=== PATIENT | male | born 1945 | race Caucasian/White ===

== ENCOUNTER → 2016-11-06 | Outpatient (CLI) | payer OTHER ==
[2016-02-24 10:43] VITALS: BP 138/83
== END ==
LOC: LAB 15:20
PROVIDERS: ATTEND Internal Medicine Gastroenterology
DX: K64.0 First degree hemorrhoids (principal)
CPT/HCPCS: 82270

== ENCOUNTER → 2017-09-19 | Outpatient (CLI) | payer OTHER ==
[2016-02-24 10:43] VITALS: BP 138/83
== END ==
LOC: LAB 10:10
PROVIDERS: ATTEND Internal Medicine Gastroenterology
DX: K64.0 First degree hemorrhoids (principal)
CPT/HCPCS: 82270

== ENCOUNTER 2018-02-25 12:19 | Observation (INO) ==
[2018-02-25 13:33] LABS: BASOPHILS % (AUTO) 0.3 % (0.2-1.0); EOSINOPHILS % (AUTO) 0.1 % (0.9-2.9); HEMATOCRIT 38.8 % (42.0-54.0); HEMOGLOBIN 13.2 g/dL (13.5-18.0); LYMPHOCYTES # (AUTO) 1.1 X10^3/uL (1.3-2.9); LYMPHOCYTES % (AUTO) 7.4 % (21.0-51.0); MEAN CORPUSCULAR HEMOGLOBIN 29.5 pg (27.0-34.0); MEAN CORPUSCULAR VOLUME 86.9 fL (80.0-100.0); MEAN PLATELET VOLUME 7.7 fL (7.4-11.0); MONOCYTES # (AUTO) 1.5 x10^3/uL (0.3-0.8); MONOCYTES % (AUTO) 9.7 % (0.0-13.0); NEUTROPHILS # (AUTO) 12.8 x10^3/uL (2.2-4.8); NEUTROPHILS % (AUTO) 82.5 % (42.0-75.0); PLATELET COUNT 236 X10^3/uL (150.0-450.0); RED BLOOD COUNT 4.47 X10^6/uL (4.7-6.0); RED CELL DISTRIBUTION WIDTH 13.2 % (11.6-16.5); WHITE BLOOD COUNT 15.5 X10^3/uL (3.6-10.0)
[2018-02-25] MEDS ORDERED: NS 250 ML IV 250 ML IV ONE (13:45)
--- NOTE | 2018-02-25 13:49 | RAD ---
HISTORY: Chest pain, abdominal pain Study: Flat and upright abdomen, PA chest Comparison: None Findings: The abdominal gas pattern is nonspecific and nonobstructive. No pneumoperitoneum is identified. No ab normal masses are identified. There is a 4 mm calcification overlying the lower pole of the left kidn ey likely representing a left renal calculus. The chest is clear. The patient is status post median s ternotomy. IMPRESSION: No acute intra-abdominal abnormality 4 mm left lower pole renal calculus Lungs clear Reported By:
[2018-02-25 13:54] LABS: ALBUMIN 3.1 g/dL (3.4-5.0); CALCIUM 10.4 mg/dL (8.5-10.1); CARBON DIOXIDE 22.8 mmol/L (21-32); COR CA(FOR HYPOALB) 11.1 mg/dL (8.5-10.1); CREATININE 1.5 mg/dL (0.70-1.30); MAGNESIUM 1.2 mg/dL (1.7-2.9); TOTAL PROTEIN 7.5 g/dL (6.4-8.2)
[2018-02-25 13:59] LABS: CKMB % 4.8 % (<4); CREATINE KINASE 21 Units/L (39-308); CREATINE KINASE MB < 1.0 ng/mL (0-4.0); TROPONIN I < 0.02 ng/mL (0-1.5)
[2018-02-25] MEDS ORDERED: NS 250 ML IV 250 ML IV PRN (14:00)
[2018-02-25] MEDS: LEVSIN/MAALOX/LIDOC VISC PO SCH ×3 (14:09→20:27)
[2018-02-25] MEDS: ASPIRIN PO SCH (14:09)
[2018-02-25] MEDS: PEPCID 20 MG IV PREMIX* 20 MG/50 ML BAG IV SCH ×2 (14:09→20:28)
[2018-02-25] MEDS: PROTONIX INJ 40 MG VIAL IVP SCH ×2 (14:10→20:27)
[2018-02-25 14:28] LABS: BILIRUBIN,URINE NEGATIVE (NEGATIVE); BLOOD/HEMOGLOBIN,URINE 1+ (NEGATIVE); GLUCOSE, URINE 4+ (NEGATIVE); KETONES,URINE NEGATIVE (NEGATIVE); LEUKOCYTE ESTERASE ,URINE NEGATIVE (NEGATIVE); NITRITES,URINE NEGATIVE (NEGATIVE); PROTEIN,URINE 2+ (NEGATIVE); UROBILINOGEN,URINE NORMAL (NORMAL)
[2018-02-25 14:38] LABS: APPEARANCE,URINE CLEAR (CLEAR); COLOR,URINE YELLOW (YELLOW)
[2018-02-25 14:39] LABS: BACTERIA,URINE NEGATIVE /HPF (NEGATIVE); MUCUS,URINE FEW /HPF (NEGATIVE); RBC,URINE 0-2 /HPF (NONE SEEN); SQUAMOUS EPITHELIAL CELL,UR FEW /HPF (NEGATIVE)
[2018-02-25 15:32] VITALS: BMI 28.3
[2018-02-25] MEDS: HumuLIN R SUBCUT PRN (16:50)
[2018-02-25] MEDS ORDERED: NS 100 ML IV + SPIKE MINIBAG* 100 ML IV ONE (18:29)
[2018-02-25] MEDS ORDERED: FORTAZ or TAZICEF VIAL INJ ONE (18:29)
[2018-02-25] MEDS: FORTAZ or TAZICEF VIAL INJ 1 G in NS 100 ML IV + SPIKE MINIBAG* 100 ML IV SCH ×2 (18:31→22:00)
[2018-02-25 18:38] LABS: CKMB % 4.4 % (<4); CREATINE KINASE 23 Units/L (39-308); CREATINE KINASE MB < 1.0 ng/mL (0-4.0); TROPONIN I < 0.02 ng/mL (0-1.5)
[2018-02-25] MEDS: TYLENOL 325 MG TAB PO PRN (20:20)
[2018-02-25] MEDS: SNACK - Diabetic Appropriate PO SCH (20:34)
[2018-02-25 21:59] LABS: CKMB % 4.6 % (<4); CREATINE KINASE 22 Units/L (39-308); CREATINE KINASE MB < 1.0 ng/mL (0-4.0); TROPONIN I < 0.02 ng/mL (0-1.5)
[2018-02-26] MEDS: FORTAZ or TAZICEF VIAL INJ 1 G in NS 100 ML IV + SPIKE MINIBAG* 100 ML IV SCH ×3 (06:09→22:27)
[2018-02-26 06:20] LABS: BASOPHILS % (AUTO) 0.2 % (0.2-1.0); EOSINOPHILS % (AUTO) 0.1 % (0.9-2.9); HEMATOCRIT 34.6 % (42.0-54.0); MEAN CORPUSCULAR HEMOGLOBIN 29.7 pg (27.0-34.0); MEAN CORPUSCULAR HGB CONC 34.7 g/dL (33.0-35.0); MEAN CORPUSCULAR VOLUME 85.6 fL (80.0-100.0); MEAN PLATELET VOLUME 7.9 fL (7.4-11.0); MONOCYTES # (AUTO) 1.2 x10^3/uL (0.3-0.8); MONOCYTES % (AUTO) 9.4 % (0.0-13.0); NEUTROPHILS # (AUTO) 10.7 x10^3/uL (2.2-4.8); NEUTROPHILS % (AUTO) 82.3 % (42.0-75.0); PLATELET COUNT 197 X10^3/uL (150.0-450.0); RED BLOOD COUNT 4.05 X10^6/uL (4.7-6.0); RED CELL DISTRIBUTION WIDTH 13.1 % (11.6-16.5)
[2018-02-26] MEDS: HumuLIN R SUBCUT PRN ×4 (06:27→21:32)
[2018-02-26 06:29] LABS: ALANINE AMINOTRANSFERASE 10 Units/L (12-78); ALBUMIN 2.6 g/dL (3.4-5.0); ALKALINE PHOSPHATASE 57 Units/L (46-116); ASPARTATE AMINO TRANSFERASE 11 Units/L (15-37); BLOOD UREA NITROGEN 19 mg/dL (7-18); CALCIUM 10.1 mg/dL (8.5-10.1); CARBON DIOXIDE 30.8 mmol/L (21-32); CHLORIDE 97 mmol/L (98-107); CHOL/HDL RATIO 6.5 (0.0-5.0); CHOLESTEROL 111 mg/dL (0-200); COR CA(FOR HYPOALB) 11.2 mg/dL (8.5-10.1); COR NA(FOR HYPERGLY) 138 mmol/L (136-145); CREATININE 1.28 mg/dL (0.70-1.30); HDL CHOLESTEROL 17 mg/dL (40-60); SODIUM 134 mmol/L (136-145); TOTAL PROTEIN 6.9 g/dL (6.4-8.2); TRIGLYCERIDES 190 mg/dL (0-150); eGFR NON BLACK RACES 59 (>60)
--- NOTE | 2018-02-26 06:47 | RAD ---
Chest portable Indication: Fever Comparison 02/25/2018 Findings: There are stable post sternotomy changes. The heart remains within normal limits. There is mild basilar atelectasis right greater than left. There is no venous congestion. A small right effusi on is present. The skeleton appears negative Impression: 1. Stable coarse lung markings. Minimal basilar atelectasis changes at Reported By:
--- NOTE | 2018-02-26 08:22 | DR.UPDATE ---
H&P Update History and Physical Update: WAS SEEN TODAY IN THE OFFICE. A H&P WAS COMPLETED PRIOR TO ADMISSION. PATIENT HAS BEEN SEEN AND EXAMINED WITH NO CHANGES NOTED TO H&P. Changes noted: NO Yes with the following:
[2018-02-26] MEDS: ASPIRIN PO SCH (09:20)
[2018-02-26] MEDS: PEPCID 20 MG IV PREMIX* 20 MG/50 ML BAG IV SCH ×2 (09:22→20:54)
[2018-02-26] MEDS: TYLENOL 325 MG TAB PO PRN (09:23)
[2018-02-26] MEDS: PROTONIX INJ 40 MG VIAL IVP SCH ×2 (09:29→20:52)
[2018-02-26] MEDS: LEVSIN/MAALOX/LIDOC VISC PO SCH ×4 (09:29→20:52)
[2018-02-26] MEDS ORDERED: GLIPIZIDE PO SCH (10:15)
[2018-02-26] MEDS ORDERED: FENOFIBRATE MICRONIZED PO SCH (10:15)
[2018-02-26] MEDS ORDERED: GLUCOPHAGE ONE ×2 (10:56→20:05)
[2018-02-26] MEDS: MILK OF MAGNESIA PO SCH (11:07)
[2018-02-26] MEDS: PLAVIX PO SCH (11:07)
[2018-02-26] MEDS: ZANTAC PO SCH ×2 (11:07→20:54)
[2018-02-26] MEDS: LIPITOR TAB 20 MG PO SCH (11:08)
[2018-02-26] MEDS: SYNTHROID 75 mcg TAB PO SCH (11:08)
[2018-02-26] MEDS: GLUCOPHAGE PO SCH ×2 (11:08→20:53)
[2018-02-26] MEDS: LOPRESSOR TAB 25 MG PO SCH ×2 (11:08→20:53)
[2018-02-26] MEDS: TAMIFLU PO SCH ×2 (11:09→20:54)
[2018-02-26] MEDS: COLACE CAP 100 MG PO PRN (12:17)
[2018-02-26] MEDS: SNACK - Diabetic Appropriate PO SCH (20:55)
[2018-02-26] MEDS ORDERED: XANAX PO SCH (21:00)
[2018-02-27 05:52] LABS: BASOPHILS % (AUTO) 0.4 % (0.2-1.0); EOSINOPHILS # (AUTO) 0.1 x10^3/uL (0.0-0.2); EOSINOPHILS % (AUTO) 0.8 % (0.9-2.9); HEMATOCRIT 30.8 % (42.0-54.0); HEMOGLOBIN 10.8 g/dL (13.5-18.0); LYMPHOCYTES # (AUTO) 1.2 X10^3/uL (1.3-2.9); LYMPHOCYTES % (AUTO) 12.5 % (21.0-51.0); MEAN CORPUSCULAR HGB CONC 35.2 g/dL (33.0-35.0); MEAN CORPUSCULAR VOLUME 85.3 fL (80.0-100.0); MEAN PLATELET VOLUME 7.9 fL (7.4-11.0); MONOCYTES % (AUTO) 10.8 % (0.0-13.0); NEUTROPHILS % (AUTO) 75.5 % (42.0-75.0); PLATELET COUNT 169 X10^3/uL (150.0-450.0); RED BLOOD COUNT 3.61 X10^6/uL (4.7-6.0); WHITE BLOOD COUNT 9.3 X10^3/uL (3.6-10.0)
[2018-02-27] MEDS: FORTAZ or TAZICEF VIAL INJ 1 G in NS 100 ML IV + SPIKE MINIBAG* 100 ML IV SCH ×2 (06:06→13:21)
[2018-02-27] MEDS: HumuLIN R SUBCUT PRN ×2 (06:07→12:00)
[2018-02-27 06:27] LABS: ALANINE AMINOTRANSFERASE 28 Units/L (12-78); ALBUMIN 2.2 g/dL (3.4-5.0); ALKALINE PHOSPHATASE 52 Units/L (46-116); ASPARTATE AMINO TRANSFERASE 18 Units/L (15-37); BLOOD UREA NITROGEN 19 mg/dL (7-18); CALCIUM 8.7 mg/dL (8.5-10.1); CARBON DIOXIDE 28.4 mmol/L (21-32); CHLORIDE 98 mmol/L (98-107); COR CA(FOR HYPOALB) 10.1 mg/dL (8.5-10.1); COR NA(FOR HYPERGLY) 135 mmol/L (136-145); CREATININE 1.07 mg/dL (0.70-1.30); SODIUM 134 mmol/L (136-145); TOTAL PROTEIN 6.1 g/dL (6.4-8.2); eGFR NON BLACK RACES > 60 (>60)
[2018-02-27] MEDS ORDERED: GLUCOTROL XL PO SCH (07:00)
[2018-02-27] MEDS ORDERED: K-RIDER 10 MEQ/NS 100 ML 10 MEQ/100 ML BAG IV PRN (07:01)
[2018-02-27] MEDS ORDERED: POTASSIUM CHLORIDE LIQ 20 MEQ UDC PO PRN (07:01)
[2018-02-27] MEDS ORDERED: POTASSIUM CHL 60 MEQ/NS 0.45% 500 ML IV PRN (07:01)
[2018-02-27] MEDS ORDERED: POTASSIUM CHL 40 MEQ/NS 0.45% 500 ML IV PRN (07:01)
[2018-02-27] MEDS ORDERED: K-LYTE EFFERVESCENT PO PRN (07:01)
[2018-02-27] MEDS ORDERED: TRICOR TAB 145 MG PO SCH (09:00)
[2018-02-27] MEDS ORDERED: GLUCOPHAGE ONE (09:17)
[2018-02-27] MEDS: TAMIFLU PO SCH ×2 (09:27→17:06)
[2018-02-27] MEDS: ZANTAC PO SCH (09:27)
[2018-02-27] MEDS: LOPRESSOR TAB 25 MG PO SCH (09:27)
[2018-02-27] MEDS: ASPIRIN PO SCH (09:28)
[2018-02-27] MEDS: LIPITOR TAB 20 MG PO SCH (09:28)
[2018-02-27] MEDS: PLAVIX PO SCH (09:28)
[2018-02-27] MEDS: SYNTHROID 75 mcg TAB PO SCH (09:28)
[2018-02-27] MEDS: PEPCID 20 MG IV PREMIX* 20 MG/50 ML BAG IV SCH (09:28)
[2018-02-27] MEDS: GLUCOPHAGE PO SCH (09:28)
[2018-02-27] MEDS: PROTONIX INJ 40 MG VIAL IVP SCH (09:29)
[2018-02-27] MEDS: LEVSIN/MAALOX/LIDOC VISC PO SCH ×3 (09:31→17:06)
[2018-02-27] MEDS: COLACE CAP 100 MG PO PRN (09:33)
[2018-02-27] MEDS: MILK OF MAGNESIA PO SCH (09:33)
[2018-02-27] MEDS: MAGNESIUM SULFATE 1 GRAM/100 mL PREMIX 1 GM/100 ML BAG IV PRN ×2 (11:23→13:21)
--- NOTE | 2018-02-27 12:06 | PCM.PROG ---
Progress Note - Progress Note for Day of Date of Exam: 02/26/18 - Subjective Subjective: WAS ADMITTED FOR GENERALIZED WEAKNESS, CHEST PAIN, AND ABDOMINAL PAIN. TODAY, HE IS ALERT AND ORIENTED, LYING IN BED ON MORNIGN ROUNDS. HE IS NOTED WITH COMPLAINTS OF SHORTNESS OF BREATH AND EPIGASTRIC PAIN AT THIS TIME. HE ALSO REPORTS WEAKNESS AND GENERALIZED ACHING. STAFF REPORTS THAT HE WAS NOTED WITH A TEMPERATURE OF 103.0 DEGRESS LAST NIGHT. ON EXAMINATION , HEART IS REGULAR IN RATE AND RHYTHM. BILATERAL LUNGS ARE NOTED WITH DIMINISHED LUNG SOUNDS THROGHOUT. ABDOMEN IS ROUND, SOFT, AND NOTED WITH MILD, EPIGASTRIC TENDERNESS TO PALPATION. HIS VITALS THIS MORNING ARE 99.2-103-20-97%- 149/67. LABS WERE OBTAINED. ABNORMAL LAB VALUES INCLUDE THE FOLLOWING: WBC DECREASED FROM 15.5 TO 13.0, RBC 4.05, HGB 12.0, HCT 34.6, SODIUM 134, CHLORIDE 97, BUN 19, GLUCOSE 253, AST 11, ALT 10, ALBUMIN 2.6, TRIGLYCERIDES 190, HCL 17. H-PYLORI POSITIVE. BLOOD CULTURES ARE PENDING. A CHEST XRAY WAS OBTAINED AND REVEALED STABLE COURSE LUNG MARKINGS. MINIMAL BASILAR ATELECTASIS CHANGES. HE WAS STARTED ON FORTAZ 1GM IV DAILY YESTERDAY. WE WILL CONTINUE WITH CURRENT PLAN OF CARE TODAY AND START TAMIFLU 75MG PO BID. OTHERWISE, WE PLAN TO FOLLOW UP WITH AM LABS AND CONTINUE TO MONITOR PATIENT. - Past Medical Family Social History Past Med/Fam/Surg Hx: No changes since H&P Allergies: Allergies No Known Drug Allergies [NKDA] Allergy (Verified 02/25/18 12:56) - Review of Systems ROS: No change since H&P - Vital Signs and I&O's Vital Signs: Temperature 98.9 F Pulse Rate [Brachial] 91 Respiratory Rate 20 Blood Pressure [Right Arm] 135/88 Blood Pressure 138/83 O2 Sat by Pulse Oximetry 94 Intake and Output: Intake & Output 02/25/18 02/26/18 02/27/18 02/28/18 11:59 11:59 11:59 11:59 Intake Total 1440 / 1440 3830 / 3830 Output Total 0 / 0 Balance 1440 / 1440 3830 / 3830 - Physical Exam Oriented: Normal Eyes: Normal Ear: Normal Nose: Other (NASAL CONGESTION ) Throat: Normal Respiratory: Generalized, Diminished Cardiovascular: Normal. negative: S3, S4, Murmur : Normal Auscultation: Bowel Sounds: Normal Palpation: Normal Tenderness: Epigastric. negative: Rebound, Guarding, Rigidity Skin: Normal Musculoskeletal: Normal Psychiatric: Normal Mood Description: Calm Affect: Normal Speech Pattern: Clear, Appropriate - Laboratory and Diagnostics Result Diagrams: 02/27/18 05:33 02/27/18 05:33 Labs: 02/25/18 20:35 Blood Blood Culture - Preliminary 02/25/18 20:30 Blood Blood Culture - Preliminary Laboratory WBC 9.3 X10^3/uL (3.6-10.0) 02/27/18 05:33 RBC 3.61 X10^6/uL (4.7-6.0) L 02/27/18 05:33 Hgb 10.8 g/dL (13.5-18.0) L 02/27/18 05:33 Hct 30.8 % (42.0-54.0) L 02/27/18 05:33 MCV 85.3 fL (80.0-100.0) 02/27/18 05:33 MCH 30.0 pg (27.0-34.0) 02/27/18 05:33 MCHC 35.2 g/dL (33.0-35.0) H 02/27/18 05:33 RDW 13.0 % (11.6-16.5) 02/27/18 05:33 Plt Count 169 X10^3/uL (150.0-450.0) 02/27/18 05:33 MPV 7.9 fL (7.4-11.0) 02/27/18 05:33 Neut % (Auto) 75.5 % (42.0-75.0) H 02/27/18 05:33 Lymph % (Auto) 12.5 % (21.0-51.0) L 02/27/18 05:33 [place] % (Auto) 10.8 % (0.0-13.0) 02/27/18 05:33 Eos % (Auto) 0.8 % (0.9-2.9) L 02/27/18 05:33 Baso % (Auto) 0.4 % (0.2-1.0) 02/27/18 05:33 Neut # (Auto) 7.0 x10^3/uL (2.2-4.8) H 02/27/18 05:33 Lymph # (Auto) 1.2 X10^3/uL (1.3-2.9) L 02/27/18 05:33 [place] # (Auto) 1.0 x10^3/uL (0.3-0.8) H 02/27/18 05:33 Eos # (Auto) 0.1 x10^3/uL (0.0-0.2) 02/27/18 05:33 Baso # (Auto) 0.0 X10^3/uL (0.0-0.1) 02/27/18 05:33 Absolute Nucleated RBC 0.0 /100WBC 02/27/18 05:33 INR Target Range - 02/25/18 13:08 INR 1.20 (0.8-1.3) 02/25/18 13:08 APTT 34.9 SECONDS (22.9-36.5) 02/25/18 13:08 PTT Comment - 02/25/18 13:08 Sodium 134 mmol/L (136-145) L 02/27/18 05:33 Corrected Sodium 135 mmol/L (136-145) L 02/27/18 05:33 Potassium 3.2 mmol/L (3.5-5.1) L 02/27/18 05:33 Chloride 98 mmol/L (98-107) 02/27/18 05:33 Carbon Dioxide 28.4 mmol/L (21-32) 02/27/18 05:33 BUN 19 mg/dL (7-18) H 02/27/18 05:33 Creatinine 1.07 mg/dL (0.70-1.30) 02/27/18 05:33 Est GFR (MDRD) Af Amer > 60 (>60) 02/27/18 05:33 Est GFR (MDRD) Non-Af > 60 (>60) 02/27/18 05:33 Glucose 162 mg/dL (65-99) H 02/27/18 05:33 POC Glucose (mg/dL) 292 mg/dL (65-99) H 02/27/18 11:59 Calcium 8.7 mg/dL (8.5-10.1) 02/27/18 05:33 Corrected Calcium 10.1 mg/dL (8.5-10.1) 02/27/18 05:33 Magnesium 1.2 mg/dL (1.7-2.9) L 02/27/18 05:33 Total Bilirubin 0.20 mg/dL (0.2-1.0) 02/27/18 05:33 AST 18 Units/L (15-37) 02/27/18 05:33 ALT 28 Units/L (12-78) 02/27/18 05:33 Alkaline Phosphatase 52 Units/L (46-116) 02/27/18 05:33 Creatine Kinase 22 Units/L (39-308) L 02/25/18 21:05 CK-MB (CK-2) < 1.0 ng/mL (0-4.0) 02/25/18 21:05 CK/CKMB % Calc 4.6 % (<4) 02/25/18 21:05 Troponin I < 0.02 ng/mL (0-1.5) 02/25/18 21:05 Total Protein 6.1 g/dL (6.4-8.2) L 02/27/18 05:33 Albumin 2.2 g/dL (3.4-5.0) L 02/27/18 05:33 Globulin 3.9 g/dL (2.5-4.5) 02/27/18 05:33 Albumin/Globulin Ratio 0.6 Ratio (1.1-2.1) L 02/27/18 05:33 Triglycerides 190 mg/dL (0-150) H 02/26/18 05:26 Cholesterol 111 mg/dL (0-200) 02/26/18 05:26 LDL Cholesterol, Calc 56 mg/dL (0-100) 02/26/18 05:26 HDL Cholesterol 17 mg/dL (40-60) L 02/26/18 05:26 Cholesterol/HDL Ratio 6.5 (0.0-5.0) H 02/26/18 05:26 Specimen Type Clean catch urine 02/25/18 14:15 Urine Color Yellow (YELLOW) 02/25/18 14:15 Urine Appearance Clear (CLEAR) 02/25/18 14:15 Urine pH 5.0 (5.0 - 8.0) 02/25/18 14:15 Ur Specific [place] 1.020 (1.000-1.030) 02/25/18 14:15 Urine Protein 2+ (NEGATIVE) 02/25/18 14:15 Urine Glucose (UA) 4+ (NEGATIVE) 02/25/18 14:15 Urine Ketones Negative (NEGATIVE) 02/25/18 14:15 Urine Occult Blood 1+ (NEGATIVE) 02/25/18 14:15 Urine Nitrite Negative (NEGATIVE) 02/25/18 14:15 Urine Bilirubin Negative (NEGATIVE) 02/25/18 14:15 Urine Urobilinogen Normal (NORMAL) 02/25/18 14:15 Ur Leukocyte Esterase Negative (NEGATIVE) 02/25/18 14:15 Urine RBC 0-2 /HPF (NONE SEEN) 02/25/18 14:15 Urine WBC 0-2 /HPF (NONE SEEN) 02/25/18 14:15 Ur Squamous Epith Cells Few /HPF (NEGATIVE) 02/25/18 14:15 Urine Bacteria Negative /HPF (NEGATIVE) 02/25/18 14:15 Urine Mucus Few /HPF (NEGATIVE) 02/25/18 14:15 Ur Culture Indicated? No/not indicated 02/25/18 14:15 H. pylori IgG Antibody Positive (NEGATIVE) A 02/25/18 13:08 - Plan (1) Fever Status: Acute Qualifiers: Fever type: unspecified Qualified Code(s): R50.9 - Fever, unspecified Plan: IV ANTIBIOTICS, TAMIFLU, CONTINUE TO MONITOR (2) Generalized weakness Status: Acute (3) Generalized body aches Status: Acute (4) H. pylori infection Status: Acute Plan: PEPCID, PROTONIX, GI COCKTAIL, CONTINUE TO MONITOR
[2018-02-27 16:41] VITALS: BP 110/60
--- NOTE | 2018-03-13 12:19 | DR.CARTERD ---
- Discharge Summary for: Discharge Summary for Date of:: 02/27/18 - Admission Date Date of Admission: 02/25/18 - Admission Diagnoses Admission Diagnosis: (1) Chest pain (2) Shortness of breath (3) Abdominal pain - Discharge Date Discharge Date: 02/27/18 - Discharge Diagnoses Discharge Diagnosis: (1) Chest pain (2) Shortness of breath (3) Abdominal pain (4) Influenza (5) Fever (2) Generalized weakness (3) Generalized body aches (4) H. pylori infection - Hospital Course Hospital Course: Day one, Mr. Weinberg presented to the [facility] as a direct admit from our office with complaints of abdominal pain, chest pain, fever, and generalized weakness. On arrival to the hospital a chest x-ray was obtained and revealed stable post sternotomy changes; the heart remained within normal limits ; there was mild basilar atelectasis right greater than left; there was no venous congestion; a small right effusion was present; the skeleton appeared negative; stable coarse lung markings; minimal basilar atelectasis changes. Abnormal lab values included: WBC 15.5, RBC 4.47, HGB 13.2, HCT 38.8, Sodium 132 , Chloride 95, BUN 24, Creatinine 1.50, GFR (NON), 49, Glucose 267, Calcium 10.4 , Corrected Calcium 11.1, Magnesium 1.2, AST 10, Creatine Kinase 21, Albumin 3.1 , A/G ratio 0.7, H. Pylori Positive A. Blood cultures collected. Patient noted to have a 102.0 fever. We continued to evaluate and treat patient for generalized weakness, chest pain, fever, and abdominal pain. We started Ceftazidime 1 GM IV Q8H for antibiotic treatment along with Pepcid 20 MG IV Q12H for GI discomfort. Day two, Patient was noted with complaints of shortness of breath and epigastric pain. He also reported weakness and generalized aching. Patient was noted with a temperature of 103.0F through the night. On examination, heart was regular in rate and rhythm. Bilateral lungs noted with diminished breath sounds on auscultation. Abdomen was round, soft, and noted with mild epigastric tenderness upon palpation. Vitals were 99.2-103-20-97%-149/67. Abnormal labs were: Wbc decreased from 15.5 to 13.0, rbc 4.05, hgb 12.0, hct 34.6, sodium 134 , chl 97, bun 19, glucose 253, ast 11, alt 10, albumin 2.6, triglycerides 190, hcl 17. Chest xray reported stable course lung markings; minimal basilar atelectasis changs. Patient was started on Fortaz on day one. We continued with treatment and monitored. Day three, Patient reported that he felt better upon morning rounds. Patient denied shortness of breath, chest pain, or abdominal pain. Wbc was normal at 9.3. Patient was afebrile through the night. Final blood cultures negative for growth. Labs wnl. Vitals stable. We planned for discharge with Tamiflu for Influenza like symptoms. Instructions for medications and follow up were discussed with patient and family, both voiced understanding. Patient discharged home in stable condition with family. - Discharge Medications Discharge Medications: Home Medication List alprazolam 1 tab PO HS 02/25/18 [History] fenofibrate micronized 1 cap PO DAILY 02/25/18 [History] glipizide 1 tab PO DAILY 02/25/18 [History] levothyroxine 75 mcg PO DAILY 02/25/18 [History] liraglutide [Victoza 3-Erick] 0 units SUB-Q DAILY 02/25/18 [History] metoprolol tartrate 1 tab PO BID 02/25/18 [History] oseltamivir [Tamiflu] 75 mg PO BID #8 cap 02/27/18 [Rx] Prescriptions: oseltamivir [Tamiflu] Miguel Garcia Home medications aspirin 325 mg PO DAILY 11/06/13 atorvastatin [Lipitor] 20 mg PO DAILY 11/06/13 clopidogrel [Plavix] 75 mg PO DAILY 11/06/13 meclizine 25 mg PO BID PRN 11/06/13 metformin 1,000 mg PO BID 11/06/13 ranitidine HCl 150 mg PO BID 11/06/13 - Discharge Disposition Discharge Disposition: Patient is to follow up in our office in one week.
== END 2018-02-27 18:05 | disposition home or self-care (01) ==
LOC: MED/SURG
PROVIDERS: ADMIT Internal Medicine; ATTEND Internal Medicine
DX: B96.81 Helicobacter pylori [H. pylori] as the cause of diseases classified elsewhere; D72.828 Other elevated white blood cell count; R53.1 Weakness; R50.9 Fever, unspecified; R10.84 Generalized abdominal pain; R07.89 Other chest pain; N20.0 Calculus of kidney; Z79.899 Other long term (current) drug therapy; R10.13 Epigastric pain; R94.31 Abnormal electrocardiogram [ECG] [EKG]; Z79.1 Long term (current) use of non-steroidal anti-inflammatories (NSAID)
CPT/HCPCS: 36415; 71010; 71045; 74022; 80053; 80061; 81001; 82550; 82553; 82947; 83735; 84484; 85025; 85610; 85730; 86677; 87040; 93005; 94760; A4216; A4222; C9113; G9035; S0028; G0378; J0713; J1815; J3475; J3480; J3490; J7050

== ENCOUNTER 2018-06-26 10:57 | Observation (INO) ==
[2018-06-26 11:10] VITALS: BMI 32.5
[2018-06-26] MEDS ORDERED: ZOFRAN INJ 4 MG VIAL IVP ONE (11:15)
[2018-06-26] MEDS ORDERED: ZOFRAN INJ 4 MG VIAL ONE (11:21)
[2018-06-26 11:39] LABS: BASOPHILS # (AUTO) 0.1 X10^3/uL (0.0-0.1); BASOPHILS % (AUTO) 0.5 % (0.2-1.0); EOSINOPHILS % (AUTO) 0.3 % (0.9-2.9); HEMOGLOBIN 12.5 g/dL (13.5-18.0); LYMPHOCYTES # (AUTO) 1.9 X10^3/uL (1.3-2.9); LYMPHOCYTES % (AUTO) 15.7 % (21.0-51.0); MEAN CORPUSCULAR HEMOGLOBIN 29.5 pg (27.0-34.0); MEAN CORPUSCULAR HGB CONC 33.9 g/dL (33.0-35.0); MEAN CORPUSCULAR VOLUME 87.1 fL (80.0-100.0); MEAN PLATELET VOLUME 7.7 fL (7.4-11.0); MONOCYTES # (AUTO) 0.7 x10^3/uL (0.3-0.8); MONOCYTES % (AUTO) 5.4 % (0.0-13.0); NEUTROPHILS # (AUTO) 9.5 x10^3/uL (2.2-4.8); NEUTROPHILS % (AUTO) 78.1 % (42.0-75.0); PLATELET COUNT 266 X10^3/uL (150.0-450.0); RED BLOOD COUNT 4.25 X10^6/uL (4.7-6.0); RED CELL DISTRIBUTION WIDTH 12.9 % (11.6-16.5); WHITE BLOOD COUNT 12.2 X10^3/uL (3.6-10.0)
[2018-06-26 11:50] LABS: ALANINE AMINOTRANSFERASE 26 Units/L (12-78); ALBUMIN 3.6 g/dL (3.4-5.0); ALKALINE PHOSPHATASE 50 Units/L (46-116); AMYLASE 56 Units/L (25-115); ASPARTATE AMINO TRANSFERASE 21 Units/L (15-37); BLOOD UREA NITROGEN 22 mg/dL (7-18); CALCIUM 8.6 mg/dL (8.5-10.1); CARBON DIOXIDE 23.1 mmol/L (21-32); CHLORIDE 100 mmol/L (98-107); COR NA(FOR HYPERGLY) 141 mmol/L (136-145); CREATININE 0.99 mg/dL (0.70-1.30); LIPASE 183 Units/L (73-393); SODIUM 136 mmol/L (136-145); TOTAL PROTEIN 7.2 g/dL (6.4-8.2); eGFR NON BLACK RACES > 60 (>60)
[2018-06-26] MEDS ORDERED: ATIVAN INJ 2 MG VIAL IVP ONE (11:52)
[2018-06-26] MEDS ORDERED: NS 1000 ML 1,000 ML IV SCH ×2 (12:00→18:00)
--- NOTE | 2018-06-26 13:09 | RAD ---
HISTORY: Vomiting, vertigo and weakness Study: Two-view abdominal series with AP chest. Comparison: 02/25/2018. Technique: KUB and upright views provided. An AP chest is also provided. Findings: There are again changes of CABG with median sternotomy sutures and sutures marking coronary artery bypass grafts. The chest x-ray is expiratory with accentuation of the transverse cardiac diameter, which is likely normal. There is crowding of bronchovascular markings. In addition to that, there are foci of bronchitis or interstitial pneumonitis bilaterally, primarily in the lung bases. No dense consolidation, pleural fluid or pneumothorax is seen. Osseous structures are intact. Bowel gas pattern is nonspecific. There is no evidence of bowel obstruction or perforation. A 4 mm stone is seen in the lower pole of the left kidney, unchanged from prior studies. There is multilevel lumbar spondylosis. No free intraperitoneal air or fluid is seen. IMPRESSION: No evidence of bowel obstruction or perforation. Stable and unchanged 4 mm left lower pole kidney stone. Expiratory chest with foci of bronchitis or interstitial pneumonitis bilaterally, primarily in the lung bases. Reported By:
[2018-06-26 14:24] LABS: CKMB % 2.1 % (<4); CREATINE KINASE 82 Units/L (39-308); CREATINE KINASE MB 1.7 ng/mL (0-4.0); TROPONIN I < 0.02 ng/mL (0-1.5)
--- NOTE | 2018-06-26 14:37 | ED.ABDFE ---
HPI Time Seen Time Seen by Provider: 06/26/18 11:04 PCP Primary Care Physician: ARTIS OTERO Complaint Doctors Chief Complaint Comments: Patient presented to the ED for evaluation of his severe dizziness and weakness of acute onset the early AM of evaluation. He denies fever but admits to nausea and vomiting. He denies chest pain or pulmonary problem Chief Complaint:: EMS BROUGHT PT TO ER WITH C/O BEING DIZZY AND WEAK AND N/V SINCE 0300 THIS AM ,, PT DOES LOOK WEAK AND PALE ,,BR Source History Provided: Patient Mode of arrival Mode of Arrival: Stretcher Timing Onset of Chief Complaint: 06/26/18 PMH PMH Past Medical History: Yes Past Medical History: Angina, Diabetes, Dyslipidemia and Hypothyroidism Past Medical History Comment: ACUTE SINSUS, Past Surgical History: Yes Surgical History: CABG/Valve Surgery, Carotid Endarterectomy, Ortho Surgery and Other Family History History of Family Medical Conditions: Yes Family Medical History: Cancer and [place] Social History Does patient currently use any type of tobacco product: No Have you used tobacco products in the last 12 months: No Type of Tobacco Use: None Does any household member use tobacco: No Alcohol Use: Rarely Do you use any recreational Drugs:: No Lives With: Spouse Lives Where: Home infectious screening In the last 2 months have you had wt loss of >10#?: NO Have you had fever, night sweats or hemotysis?: No Have you traveled outside the country in the last 6 months?: No Isolation: Standard PE Vital Signs Vitals: Temperature 97.4 F Pulse Rate [Right Brachial] 89 Pulse Rate 85 Respiratory Rate 18 Blood Pressure [Left Arm] 159/72 Blood Pressure [Right Arm] 191/86 Blood Pressure 177/79 O2 Sat by Pulse Oximetry 100 General Limitations: Physical Limitation General Appearance: Alert and Lethargic Head Head Exam: Normal Inspection, Atraumatic and Normocephalic Eyes Eye exam: Normal Appearance, PERRL and EOMI ENT ENT Exam: Normal Exam, Normal Oropharynx, Normal External Ear Exam and Mucous Membranes Moist Neck Neck Exam: Normal Inspection and Full ROM Chest Chest Inspection: Normal Inspection and Symmetric Chest Wall Rise Respiratory Respiratory Exam: Normal Lung Sounds Bilat Respiratory Exam: Bilateral: Clear to Auscultation Cardiovascular Cardiovascular Exam: Regular Rate and Normal Rhythm Abdominal Exam Abdominal Exam: Normal Inspection, Normal Bowel Sounds, Soft and Hypoactive Bowel Sounds; negative Distention, Tenderness, Guarding and Rigidity Rectal Rectal Exam: Deferred Back Back Exam: Normal Inspection Extremeties Extremities Exam: Normal Inspection External Exam: Female: Deferred : Speculum Exam (Female): Deferred : Bimanual Exam (female): Deferred Neurologic Neurological Exam: Alert, Oriented X3 and CN II-XII Intact Psychiatric Psychiatric Exam: Normal Affect, Depressed and Flat Affect Skin Skin Exam: Warm, Dry and Intact COURSE Consultation Called: 16:02 Call Returned: 17:00 Consultation Comments: Dr. Garcia agreed to admit for further evaluation and treatment ROR Labs Reviewed Laboratory Results Reviewed?: Yes Result Diagrams: 06/26/18 11:30 06/26/18 19:16 Laboratory: WBC 12.2 X10^3/uL (3.6-10.0) H 06/26/18 11:30 RBC 4.25 X10^6/uL (4.7-6.0) L 06/26/18 11:30 Hgb 12.5 g/dL (13.5-18.0) L 06/26/18 11:30 Hct 37.0 % (42.0-54.0) L 06/26/18 11:30 MCV 87.1 fL (80.0-100.0) 06/26/18 11:30 MCH 29.5 pg (27.0-34.0) 06/26/18 11:30 MCHC 33.9 g/dL (33.0-35.0) 06/26/18 11:30 RDW 12.9 % (11.6-16.5) 06/26/18 11:30 Plt Count 266 X10^3/uL (150.0-450.0) 06/26/18 11:30 MPV 7.7 fL (7.4-11.0) 06/26/18 11:30 Neut % (Auto) 78.1 % (42.0-75.0) H 06/26/18 11:30 Lymph % (Auto) 15.7 % (21.0-51.0) L 06/26/18 11:30 [place] % (Auto) 5.4 % (0.0-13.0) 06/26/18 11:30 Eos % (Auto) 0.3 % (0.9-2.9) L 06/26/18 11:30 Baso % (Auto) 0.5 % (0.2-1.0) 06/26/18 11:30 Neut # (Auto) 9.5 x10^3/uL (2.2-4.8) H 06/26/18 11:30 Lymph # (Auto) 1.9 X10^3/uL (1.3-2.9) 06/26/18 11:30 [place] # (Auto) 0.7 x10^3/uL (0.3-0.8) 06/26/18 11:30 Eos # (Auto) 0.0 x10^3/uL (0.0-0.2) 06/26/18 11:30 Baso # (Auto) 0.1 X10^3/uL (0.0-0.1) 06/26/18 11:30 Absolute Nucleated RBC 0.0 /100WBC 06/26/18 11:30 Sodium 138 mmol/L (136-145) 06/26/18 19:16 Corrected Sodium 142 mmol/L (136-145) 06/26/18 19:16 Potassium 3.6 mmol/L (3.5-5.1) 06/26/18 19:16 Chloride 100 mmol/L (98-107) 06/26/18 19:16 Carbon Dioxide 26.7 mmol/L (21-32) 06/26/18 19:16 BUN 17 mg/dL (7-18) 06/26/18 19:16 Creatinine 0.89 mg/dL (0.70-1.30) 06/26/18 19:16 Est GFR (MDRD) Af Amer > 60 (>60) 06/26/18 19:16 Est GFR (MDRD) Non-Af > 60 (>60) 06/26/18 19:16 Glucose 252 mg/dL (65-99) H 06/26/18 19:16 POC Glucose (mg/dL) 249 mg/dL (65-99) H 06/26/18 19:58 Hemoglobin A1c 8.9 % 06/26/18 19:16 Lactic Acid 2.4 mmol/L (0.4-2.0) H 06/26/18 19:16 Calcium 8.4 mg/dL (8.5-10.1) L 06/26/18 19:16 Corrected Calcium TNP 06/26/18 19:16 Total Bilirubin 0.30 mg/dL (0.2-1.0) 06/26/18 19:16 AST 16 Units/L (15-37) 06/26/18 19:16 ALT 29 Units/L (12-78) 06/26/18 19:16 Alkaline Phosphatase 50 Units/L (46-116) 06/26/18 19:16 Creatine Kinase 49 Units/L (39-308) 06/26/18 19:16 CK-MB (CK-2) 1.5 ng/mL (0-4.0) 06/26/18 19:16 CK/CKMB % Calc 3.1 % (<4) 06/26/18 19:16 Troponin I < 0.02 ng/mL (0-1.5) 06/26/18 19:16 C-Reactive Protein 5.40 mg/L (0-3.0) H 06/26/18 11:30 Total Protein 7.7 g/dL (6.4-8.2) 06/26/18 19:16 Albumin 3.8 g/dL (3.4-5.0) 06/26/18 19:16 Globulin 3.9 g/dL (2.5-4.5) 06/26/18 19:16 Albumin/Globulin Ratio 1.0 Ratio (1.1-2.1) L 06/26/18 19:16 Amylase 56 Units/L (25-115) 06/26/18 11:30 Lipase 183 Units/L (73-393) 06/26/18 11:30 Specimen Type Random urine 06/26/18 14:25 Urine Color Yellow (YELLOW) 06/26/18 14:25 Urine Appearance Clear (CLEAR) 06/26/18 14:25 Urine pH 6.0 (5.0 - 8.0) 06/26/18 14:25 Ur Specific [place] 1.010 (1.000-1.030) 06/26/18 14:25 Urine Protein Negative (NEGATIVE) 06/26/18 14:25 Urine Glucose (UA) 4+ (NEGATIVE) 06/26/18 14:25 Urine Ketones 1+ (NEGATIVE) 06/26/18 14:25 Urine Occult Blood Negative (NEGATIVE) 06/26/18 14:25 Urine Nitrite Negative (NEGATIVE) 06/26/18 14:25 Urine Bilirubin Negative (NEGATIVE) 06/26/18 14:25 Urine Urobilinogen Normal (NORMAL) 06/26/18 14:25 Ur Leukocyte Esterase Negative (NEGATIVE) 06/26/18 14:25 Other Results Comments: CT Brain:No definite evidence of an acute intracranial process. If clinical concern persists for acute stroke and it would alter patient management consider MRI/MRA brain. Chronic infarction right paracentral lobule and associated encephalomalacia with slight anterior and posterior extension. Chronic lacuna infarction right lentiform nucleus. Moderate microvascular white matter ischemic changes, with associated volume loss. Chest: No evidence of bowel obstruction or perforation. Stable and unchanged 4mm left lower pole kidney stone. Expiratory chest with foci of bronchitis or interstitial pneumonitis, bilaterally, primarily in the lung bases. Diagnosis Discharge Problem: Acute onset of severe vertigo, Weakness
[2018-06-26 14:41] LABS: BILIRUBIN,URINE NEGATIVE (NEGATIVE); BLOOD/HEMOGLOBIN,URINE NEGATIVE (NEGATIVE); GLUCOSE, URINE 4+ (NEGATIVE); KETONES,URINE 1+ (NEGATIVE); LEUKOCYTE ESTERASE ,URINE NEGATIVE (NEGATIVE); NITRITES,URINE NEGATIVE (NEGATIVE); PROTEIN,URINE NEGATIVE (NEGATIVE); UROBILINOGEN,URINE NORMAL (NORMAL)
[2018-06-26 14:58] LABS: APPEARANCE,URINE CLEAR (CLEAR); COLOR,URINE YELLOW (YELLOW)
--- NOTE | 2018-06-26 15:39 | CT ---
CT HEAD WITHOUT CONTRAST CLINICAL HISTORY: 72-year-old male with dizziness, weakness and nausea with vomiting. COMPARISON: None. TECHNIQUE: Multiple, non-contrasted axial CT images were obtained from the skull base to the cranial vertex. Coronal and sagittal reformats were performed. FINDINGS: There are no abnormal intra- or extra-axial fluid collections, midline shift, or mass effect. Tafoya-white differentiation is normal. Global cortical involutional changes are present that are advanced for the patient's stated age. The ventricular system is enlarged but commensurate with the degree of sulcal prominence. Chronic infarction with associated encephalomalacia right paracentral lobule extending slightly anteriorly and posteriorly. Chronic lacunar infarction right lentiform nucleus. Periventricular and supraventricular white matter hypodensity is present that is nonspecific in appearance, but most likely to represent microvascular ischemic changes. Atherosclerotic vascular calcification is present within the carotid siphons and distal vertebral arteries. The imaged paranasal sinuses, mastoid air cells, and tympanic spaces are clear. IMPRESSION: 1. No definite evidence of an acute intracranial process. If clinical concern persists for acute stroke and it would alter patient management, consider MRI/MRA brain. 2. Chronic infarction right paracentral lobule and associated encephalomalacia with slight anterior and posterior extension. 3. Chronic lacunar infarction right lentiform nucleus. 4. Moderate microvascular white matter ischemic changes, with associated volume loss. Reported By:
[2018-06-26] MEDS: SYNTHROID 75 mcg TAB PO SCH (18:40)
[2018-06-26] MEDS ORDERED: ZOFRAN INJ 4 MG VIAL IVP PRN (18:45)
[2018-06-26] MEDS ORDERED: TUSSIONEX PENNKINETIC SUSP PO PRN (18:58)
[2018-06-26] MEDS ORDERED: HumuLIN R SC PRN (18:58)
[2018-06-26] MEDS ORDERED: DUONEB 0.5 MG/3 MG ONE (19:12)
[2018-06-26] MEDS ORDERED: SALINE 3% 15 ML NEB TX ONE (19:13)
[2018-06-26] MEDS ORDERED: SALINE 3% 15 ML NEB TX NEB ONE (19:15)
[2018-06-26] MEDS: NS 1/2 1000 ML IV 1,000 ML IV SCH (19:18)
[2018-06-26] MEDS: DUONEB 0.5 MG/3 MG NEB SCH ×2 (19:20→21:34)
[2018-06-26 19:40] LABS: HEMOGLOBIN A1C 8.9 %
[2018-06-26] MEDS ORDERED: GLUCOPHAGE ONE (19:42)
[2018-06-26 19:44] LABS: LACTIC ACID 2.4 mmol/L (0.4-2.0)
[2018-06-26 19:50] LABS: ALANINE AMINOTRANSFERASE 29 Units/L (12-78); ALBUMIN 3.8 g/dL (3.4-5.0); ALKALINE PHOSPHATASE 50 Units/L (46-116); ASPARTATE AMINO TRANSFERASE 16 Units/L (15-37); BLOOD UREA NITROGEN 17 mg/dL (7-18); CALCIUM 8.4 mg/dL (8.5-10.1); CARBON DIOXIDE 26.7 mmol/L (21-32); CHLORIDE 100 mmol/L (98-107); CKMB % 3.1 % (<4); COR NA(FOR HYPERGLY) 142 mmol/L (136-145); CREATINE KINASE 49 Units/L (39-308); CREATINE KINASE MB 1.5 ng/mL (0-4.0); CREATININE 0.89 mg/dL (0.70-1.30); SODIUM 138 mmol/L (136-145); TOTAL PROTEIN 7.7 g/dL (6.4-8.2); TROPONIN I < 0.02 ng/mL (0-1.5); eGFR NON BLACK RACES > 60 (>60)
[2018-06-26] MEDS: LEVAQUIN PREMIX IV 750 MG 750 MG/150 ML BAG IV SCH (20:19)
[2018-06-26] MEDS: GLUCOPHAGE PO SCH (20:20)
[2018-06-26] MEDS: LOPRESSOR TAB 25 MG PO SCH (20:20)
[2018-06-26] MEDS: ZANTAC PO SCH (20:21)
[2018-06-26] MEDS: ROBITUSSIN DM PO SCH (20:21)
[2018-06-26] MEDS: XANAX PO SCH (20:21)
[2018-06-26] MEDS: HumuLIN R SUBCUT PRN (20:22)
[2018-06-26] MEDS: ANTIVERT TAB 25 MG PO SCH (21:09)
[2018-06-27] MEDS ORDERED: NS 1/2 1000 ML IV 1,000 ML IV ONE ×2 (01:24→20:52)
[2018-06-27 05:04] LABS: BASOPHILS % (AUTO) 0.2 % (0.2-1.0); HEMATOCRIT 35.2 % (42.0-54.0); HEMOGLOBIN 11.8 g/dL (13.5-18.0); LYMPHOCYTES # (AUTO) 0.8 X10^3/uL (1.3-2.9); LYMPHOCYTES % (AUTO) 6.3 % (21.0-51.0); MEAN CORPUSCULAR HGB CONC 33.4 g/dL (33.0-35.0); MEAN CORPUSCULAR VOLUME 86.9 fL (80.0-100.0); MONOCYTES # (AUTO) 0.9 x10^3/uL (0.3-0.8); MONOCYTES % (AUTO) 6.6 % (0.0-13.0); NEUTROPHILS # (AUTO) 11.5 x10^3/uL (2.2-4.8); NEUTROPHILS % (AUTO) 86.9 % (42.0-75.0); PLATELET COUNT 262 X10^3/uL (150.0-450.0); RED BLOOD COUNT 4.05 X10^6/uL (4.7-6.0); RED CELL DISTRIBUTION WIDTH 12.9 % (11.6-16.5); WHITE BLOOD COUNT 13.2 X10^3/uL (3.6-10.0)
[2018-06-27] MEDS: HumuLIN R SUBCUT PRN ×4 (05:19→20:49)
[2018-06-27] MEDS: ANTIVERT TAB 25 MG PO SCH ×3 (05:19→21:00)
[2018-06-27 05:25] LABS: ALANINE AMINOTRANSFERASE 25 Units/L (12-78); ALBUMIN 3.2 g/dL (3.4-5.0); ALKALINE PHOSPHATASE 40 Units/L (46-116); ASPARTATE AMINO TRANSFERASE 14 Units/L (15-37); BLOOD UREA NITROGEN 15 mg/dL (7-18); CALCIUM 7.9 mg/dL (8.5-10.1); CARBON DIOXIDE 28.2 mmol/L (21-32); CHLORIDE 102 mmol/L (98-107); CKMB % 3.8 % (<4); COR CA(FOR HYPOALB) 8.5 mg/dL (8.5-10.1); COR NA(FOR HYPERGLY) 141 mmol/L (136-145); CREATINE KINASE 37 Units/L (39-308); CREATINE KINASE MB 1.4 ng/mL (0-4.0); CREATININE 0.96 mg/dL (0.70-1.30); SODIUM 138 mmol/L (136-145); TOTAL PROTEIN 6.7 g/dL (6.4-8.2); TROPONIN I < 0.02 ng/mL (0-1.5); eGFR NON BLACK RACES > 60 (>60)
[2018-06-27] MEDS ORDERED: GLUCOPHAGE ONE ×2 (08:10→19:09)
[2018-06-27] MEDS: GLUCOPHAGE PO SCH ×2 (08:19→20:46)
[2018-06-27] MEDS: ZANTAC PO SCH ×2 (08:20→20:47)
[2018-06-27] MEDS: ASPIRIN EC 81 MG PO SCH (08:20)
[2018-06-27] MEDS: MAXZIDE 37.5/25 MG PO SCH (08:20)
[2018-06-27] MEDS: LOPRESSOR TAB 25 MG PO SCH ×2 (08:20→20:47)
[2018-06-27] MEDS: GLUCOTROL XL PO SCH (08:20)
[2018-06-27] MEDS: LIPITOR TAB 20 MG PO SCH (08:20)
[2018-06-27] MEDS: SYNTHROID 75 mcg TAB PO SCH (08:20)
[2018-06-27] MEDS: DUONEB 0.5 MG/3 MG NEB SCH ×4 (08:21→20:40)
[2018-06-27] MEDS: LEVAQUIN PREMIX IV 750 MG 750 MG/150 ML BAG IV SCH (08:21)
[2018-06-27] MEDS: ROBITUSSIN DM PO SCH ×4 (08:21→20:47)
[2018-06-27] MEDS: PLAVIX PO SCH (08:21)
[2018-06-27] MEDS ORDERED: FENOFIBRATE MICRONIZED PO SCH (09:00)
[2018-06-27] MEDS: CHOLECALCIFEROL 10000 UNIT PO SCH (09:04)
[2018-06-27] MEDS: NS 1/2 1000 ML IV 1,000 ML IV SCH ×2 (09:04→21:00)
[2018-06-27] MEDS: VICTOZA SC SCH (09:08)
--- NOTE | 2018-06-27 10:56 | RAD ---
HISTORY: Pneumonitis Study: Single view of the chest. Comparison: 02/26/2018 Findings: The cardiomediastinal silhouette is normal. Stable coarsening of interstitial markings without definite focal consolidation. Osseous structures demonstrate no acute abnormality. IMPRESSION: 1. No acute cardiopulmonary process. 2. Findings of chronic lung disease. Reported By:
--- NOTE | 2018-06-27 11:58 | DR.H&P ---
H&P - History & Physical for Day of: H&P Date: 06/26/18 - Chief Complaint Chief Complaint: WEAKNESS, DIZZINESS, SHORTNESS OF BREATH - History of Present Illness History of Present Illness: IS A 72 YEAR OLD PATIENT OF OURS WHO PRESENTED TO THE EMERGENCY ROOM WITH COMPLAINTS OF SEVERE DIZZINESS AND WEAKNESS. HE ALSO COMPLAINS OF NAUSEA AND VOMITING SINCE EARLY THIS MORNING. HE DENIES FEVER. ON ARRIVAL, VITALS WERE 96.0-65-22-96%-181/86. LABS WERE OBTAINED. ABNORMAL LAB VALUES INCLUDE THE FOLLOWING: WBC 12.2, RBC 4.25, HGB 12.5, HCT 37.0, GLUCOSE 252, LACTIC ACID 2.4, CALCIUM 8.4. BLOOD CULTURES COLLECTED. AN ABDOMEN SERIES REVEALED: No evidence of bowel obstruction or perforation. Stable and unchanged 4 mm left lower pole kidney stone. Expiratory chest with foci of bronchitis or interstitial pneumonitis bilaterally, primarily in the lung bases. BRAIN CT OBTAINED AND REVEALED: No definite evidence of an acute intracranial process. If clinical concern persists for acute stroke and it would alter patient management, consider MRI/MRA brain. Chronic infarction right paracentral lobule and associated encephalomalacia with slight anterior and posterior extension. Chronic lacunar infarction right lentiform nucleus. Moderate microvascular white matter ischemic changes, with associated volume loss. EKG REVEALED: SINUS RHYTHM WITH HR 70. HE WAS ADMITTED TO THE HOSPITAL FOR FURTHER EVALUATION AND TREATMENT OF BRONCHOPNEUMONIA, SEVERE VERTIGO, AND GENERALIZED WEAKNESS. HE WAS STARTED ON NORMAL SALINE AT 75ML/HR, LEVAQUIN 750MG IV DAILY, RESPIRATORY TREATMENTS AND HOME MEDICATIONS WERE RESUMED. WE PLANNED TO FOLLOW UP WITH AM LABS AND CHEST XRAY AND CONTINUE TO MONITOR. - Past Medical History Past Medical History: Angina, Dyslipidemia, Diabetes, Hypothyroidism - Past Surgical History Surgical History: CABG/Valve Surgery, Carotid Endarterectomy, Ortho Surgery, Other - Family History Family Medical History: Cancer, [place] - Social History Does patient currently use any type of tobacco product: No Have you used tobacco products in the last 12 months: No Type of Tobacco Use: None Does any household member use tobacco: No Alcohol Use: Rarely - Medications Home Medications: No Known Drug Allergies [NKDA] Allergy (Verified 06/26/18 11:04) CONTINUE taking the following medications cholecalciferol (vitamin D3) [Vitamin D3] 10,000 units PO DAILY 06/26/18 [History] triamterene-hydrochlorothiazid [Dyazide] 1 tab PO DAILY 06/26/18 [History] - Review of Systems Constitutional: See HPI, Weakness, Malaise. denies: Fever, Chills Eyes: No Symptoms Reported ENT: No Symptoms Reported Respiratory: Shortness of Breath. denies: Cough Cardiovascular: Light Headedness Gastrointestinal: Nausea, Vomiting Genitourinary: No Symptoms Reported Musculoskeletal: No Symptoms Reported Skin: No Symptoms Reported Neurological: Weakness - Physical Exam Vital Signs: Temperature 97.3 F Pulse Rate [Right Brachial] 78 Pulse Rate 82 Respiratory Rate 20 Blood Pressure [Left Arm] 141/70 Blood Pressure [Right Arm] 191/86 Blood Pressure 177/79 O2 Sat by Pulse Oximetry 97 Oriented: Normal Eyes: Normal Ear: Normal Nose: Normal Throat: Normal Respiratory: Diminished Throughout Cardiovascular: Normal. negative: S3, S4, Murmur : Normal Auscultation: Bowel Sounds: Normal Palpation: Normal Tenderness: Normal Skin: Normal Musculoskeletal: Normal Psychiatric: Normal Mood Description: Calm Affect: Normal Speech Pattern: Clear - Assessment/Plan (1) Bronchopneumonia Status: Acute Plan: LEVAQUIN 750MG IV DAILY, RESPIRATORY TREATMENTS, SUPPLEMENTAL OXYGEN, CONTINUE TO MONITOR (2) Acute onset of severe vertigo Status: Acute Plan: MECLIZINE 25MG PO TID, CONTINUE TO MONITOR (3) Generalized weakness Status: Acute Plan: CONTINUE TO MONITOR - Allergies Allergies/Adverse Reactions: Allergies Allergy/AdvReac Type Severity Reaction Status Date / Time No Known Drug Allergies Allergy Verified 06/26/18 11:04 [NKDA]
--- NOTE | 2018-06-27 16:51 | MRI ---
MRI brain without contrast Indication: Dizziness, weakness Comparison: CT head 06/26/2018 Technique: Multiplanar multi sequence MR images of the brain were obtained without contrast. Findings: There is restricted diffusion of the cerebellar vermis, with corresponding T2/FLAIR hyperintensity, suggestive for edema, without evidence for acute bleed. There are chronic infarcts of the left frontal lobe, right frontoparietal lobe near the vertex, and right lentiform nucleus. There is moderate generalized brain atrophy with concomitant ventricular and sulcal enlargement. No mass effect or abnormal extra-axial collection observed. The visualized paranasal sinuses and mastoid air cells are grossly clear. Impression: Acute to subacute infarct of the cerebellar vermis. Chronic infarcts as above. Reported By:
[2018-06-27] MEDS: XANAX PO SCH (20:47)
[2018-06-28] MEDS: NS 1/2 1000 ML IV 1,000 ML IV SCH (00:47)
[2018-06-28] MEDS: ANTIVERT TAB 25 MG PO SCH (05:16)
[2018-06-28 05:19] LABS: BASOPHILS % (AUTO) 0.5 % (0.2-1.0); EOSINOPHILS # (AUTO) 0.1 x10^3/uL (0.0-0.2); EOSINOPHILS % (AUTO) 0.6 % (0.9-2.9); HEMATOCRIT 36.2 % (42.0-54.0); HEMOGLOBIN 12.4 g/dL (13.5-18.0); LYMPHOCYTES # (AUTO) 2.2 X10^3/uL (1.3-2.9); LYMPHOCYTES % (AUTO) 22.5 % (21.0-51.0); MEAN CORPUSCULAR HEMOGLOBIN 29.7 pg (27.0-34.0); MEAN CORPUSCULAR HGB CONC 34.4 g/dL (33.0-35.0); MEAN CORPUSCULAR VOLUME 86.3 fL (80.0-100.0); MEAN PLATELET VOLUME 7.9 fL (7.4-11.0); MONOCYTES % (AUTO) 10.4 % (0.0-13.0); NEUTROPHILS # (AUTO) 6.5 x10^3/uL (2.2-4.8); PLATELET COUNT 277 X10^3/uL (150.0-450.0); RED BLOOD COUNT 4.19 X10^6/uL (4.7-6.0); WHITE BLOOD COUNT 9.8 X10^3/uL (3.6-10.0)
[2018-06-28 05:31] LABS: ALANINE AMINOTRANSFERASE 24 Units/L (12-78); ALBUMIN 3.1 g/dL (3.4-5.0); ALKALINE PHOSPHATASE 40 Units/L (46-116); ASPARTATE AMINO TRANSFERASE 14 Units/L (15-37); BLOOD UREA NITROGEN 15 mg/dL (7-18); CALCIUM 8.3 mg/dL (8.5-10.1); CARBON DIOXIDE 28.5 mmol/L (21-32); CHLORIDE 102 mmol/L (98-107); COR NA(FOR HYPERGLY) 141 mmol/L (136-145); CREATININE 0.98 mg/dL (0.70-1.30); MAGNESIUM 1.2 mg/dL (1.7-2.9); SODIUM 140 mmol/L (136-145); TOTAL PROTEIN 6.5 g/dL (6.4-8.2); eGFR NON BLACK RACES > 60 (>60)
[2018-06-28] MEDS ORDERED: K-DUR TAB 20 MEQ PO PRN (06:05)
[2018-06-28] MEDS ORDERED: POTASSIUM CHL 60 MEQ/NS 0.45% 500 ML IV PRN (06:05)
[2018-06-28] MEDS ORDERED: KLOR-CON PO PRN (06:05)
[2018-06-28] MEDS ORDERED: MICRO K EXTEN CAP 10 MEQ PO PRN (06:05)
[2018-06-28] MEDS ORDERED: POTASSIUM CHLORIDE LIQ 20 MEQ UDC PO PRN (06:05)
[2018-06-28] MEDS ORDERED: POTASSIUM CHL 40 MEQ/NS 0.45% 500 ML IV PRN (06:05)
[2018-06-28] MEDS ORDERED: K-RIDER 10 MEQ/NS 100 ML 10 MEQ/100 ML BAG IV PRN (06:05)
[2018-06-28] MEDS: MAGNESIUM SULFATE 1 GRAM/100 mL PREMIX 1 GM/100 ML BAG IV PRN ×2 (06:31→12:00)
[2018-06-28 07:48] VITALS: BP 148/72
[2018-06-28] MEDS ORDERED: GLUCOPHAGE ONE (08:38)
[2018-06-28] MEDS: LEVAQUIN PREMIX IV 750 MG 750 MG/150 ML BAG IV SCH (08:41)
[2018-06-28] MEDS: SYNTHROID 75 mcg TAB PO SCH (08:42)
[2018-06-28] MEDS: MAXZIDE 37.5/25 MG PO SCH (08:42)
[2018-06-28] MEDS: ASPIRIN EC 81 MG PO SCH (08:53)
[2018-06-28] MEDS: GLUCOTROL XL PO SCH (08:53)
[2018-06-28] MEDS: GLUCOPHAGE PO SCH (08:53)
[2018-06-28] MEDS: LIPITOR TAB 20 MG PO SCH (08:53)
[2018-06-28] MEDS: LOPRESSOR TAB 25 MG PO SCH (08:53)
[2018-06-28] MEDS: PLAVIX PO SCH (08:54)
[2018-06-28] MEDS: ZANTAC PO SCH (08:54)
[2018-06-28] MEDS: ROBITUSSIN DM PO SCH (08:55)
[2018-06-28] MEDS ORDERED: TRICOR TAB 145 MG PO SCH (09:00)
[2018-06-28] MEDS: DUONEB 0.5 MG/3 MG NEB SCH (09:02)
[2018-06-28] MEDS: CHOLECALCIFEROL 10000 UNIT PO SCH (10:46)
[2018-06-28] MEDS: VICTOZA SC SCH (10:47)
[2018-06-28] MEDS: HumuLIN R SUBCUT PRN (11:42)
--- NOTE | 2018-07-21 20:58 | PCM.PROG ---
Progress Note - Progress Note for Day of Date of Exam: 06/27/18 - Subjective Subjective: WAS ADMITTED FOR BRONCHOPNEUMONIA, VERTIGO, AND GENERALIZED WEAKNESS. TODAY, HE IS ALERT AND ORIENTED, LYING IN BED ON MORNING ROUNDS. HE IS NOTED WITH COMPLAINTS OF COUGH, SHORTNESS OF BREATH, AND WEAKNESS THIS MORNING. HE ALSO CONTINUES WITH DIZZINESS AT TIMES. HIS VITALS TODAY ARE 97.3-78-20-97%-141/70. LABS WERE OBTAINED. ABNORMAL LAB VALUES INCLUDE THE FOLLOWING: WBC 13.2, RBC 4.05, HGB 11.8, HCT 35.2, GLUCOSE 223, CALCIUM 7.9, AST 14, ALK PHOS 40, CREATINE KINASE 37, ALBUMIN 3.2. TODAY, WE WILL OBTAIN A BRAIN MRI. OTHERWISE, WE WILL CONTINUE WITH MECLIZINE, IV ANTIBIOTICS, RESPIRATORY TREATMENTS, AND CURRENT PLAN OF CARE. WE PLAN TO FOLLOW UP WITH AM LABS AND CONTINUE TO MONITOR. - Past Medical Family Social History Past Med/Fam/Surg Hx: No changes since H&P Allergies: Allergies No Known Drug Allergies [NKDA] Allergy (Verified 06/26/18 11:04) - Review of Systems ROS: No change since H&P - Vital Signs and I&O's Vital Signs: Temperature 99.5 F Pulse Rate [Right Brachial] 84 Pulse Rate 84 Respiratory Rate 20 Blood Pressure [Left Arm] 148/72 Blood Pressure [Right Arm] 191/86 Blood Pressure 177/79 O2 Sat by Pulse Oximetry 98 - Physical Exam Oriented: Normal Eyes: Normal Ear: Normal Nose: Normal Throat: Normal Respiratory: Generalized, Wheezes, Rhonchi Cardiovascular: Normal. negative: S3, S4, Murmur : Normal Auscultation: Bowel Sounds: Normal Palpation: Normal Tenderness: Normal Skin: Normal Musculoskeletal: Normal Psychiatric: Normal Mood Description: Calm Affect: Normal Speech Pattern: Clear, Appropriate - Laboratory and Diagnostics Result Diagrams: 06/28/18 04:50 06/28/18 04:05 Labs: 06/26/18 19:36 Blood Blood Culture - Final 06/26/18 19:16 Blood Blood Culture - Final 06/27/18 08:15 Sputum - Expectorated Sputum Sputum Culture - Final 06/27/18 08:15 Sputum - Expectorated Sputum - Final Laboratory WBC 9.8 X10^3/uL (3.6-10.0) 06/28/18 04:50 RBC 4.19 X10^6/uL (4.7-6.0) L 06/28/18 04:50 Hgb 12.4 g/dL (13.5-18.0) L 06/28/18 04:50 Hct 36.2 % (42.0-54.0) L 06/28/18 04:50 MCV 86.3 fL (80.0-100.0) 06/28/18 04:50 MCH 29.7 pg (27.0-34.0) 06/28/18 04:50 MCHC 34.4 g/dL (33.0-35.0) 06/28/18 04:50 RDW 13.0 % (11.6-16.5) 06/28/18 04:50 Plt Count 277 X10^3/uL (150.0-450.0) 06/28/18 04:50 MPV 7.9 fL (7.4-11.0) 06/28/18 04:50 Neut % (Auto) 66.0 % (42.0-75.0) 06/28/18 04:50 Lymph % (Auto) 22.5 % (21.0-51.0) 06/28/18 04:50 [place] % (Auto) 10.4 % (0.0-13.0) 06/28/18 04:50 Eos % (Auto) 0.6 % (0.9-2.9) L 06/28/18 04:50 Baso % (Auto) 0.5 % (0.2-1.0) 06/28/18 04:50 Neut # (Auto) 6.5 x10^3/uL (2.2-4.8) H 06/28/18 04:50 Lymph # (Auto) 2.2 X10^3/uL (1.3-2.9) 06/28/18 04:50 [place] # (Auto) 1.0 x10^3/uL (0.3-0.8) H 06/28/18 04:50 Eos # (Auto) 0.1 x10^3/uL (0.0-0.2) 06/28/18 04:50 Baso # (Auto) 0.0 X10^3/uL (0.0-0.1) 06/28/18 04:50 Absolute Nucleated RBC 0.1 /100WBC 06/28/18 04:50 Sodium 140 mmol/L (136-145) 06/28/18 04:05 Corrected Sodium 141 mmol/L (136-145) 06/28/18 04:05 Potassium 3.1 mmol/L (3.5-5.1) L 06/28/18 04:05 Chloride 102 mmol/L (98-107) 06/28/18 04:05 Carbon Dioxide 28.5 mmol/L (21-32) 06/28/18 04:05 BUN 15 mg/dL (7-18) 06/28/18 04:05 Creatinine 0.98 mg/dL (0.70-1.30) 06/28/18 04:05 Est GFR (MDRD) Af Amer > 60 (>60) 06/28/18 04:05 Est GFR (MDRD) Non-Af > 60 (>60) 06/28/18 04:05 Glucose 135 mg/dL (65-99) H 06/28/18 04:05 POC Glucose (mg/dL) 261 mg/dL (65-99) H 06/28/18 11:17 Hemoglobin A1c 8.9 % 06/26/18 19:16 Lactic Acid 2.2 mmol/L (0.4-2.0) H 06/27/18 07:25 Calcium 8.3 mg/dL (8.5-10.1) L 06/28/18 04:05 Corrected Calcium 9.0 mg/dL (8.5-10.1) 06/28/18 04:05 Magnesium 1.3 mg/dL (1.7-2.9) L 06/28/18 04:05 Total Bilirubin 0.30 mg/dL (0.2-1.0) 06/28/18 04:05 AST 14 Units/L (15-37) L 06/28/18 04:05 ALT 24 Units/L (12-78) 06/28/18 04:05 Alkaline Phosphatase 40 Units/L (46-116) L 06/28/18 04:05 Creatine Kinase 37 Units/L (39-308) L 06/27/18 04:00 CK-MB (CK-2) 1.4 ng/mL (0-4.0) 06/27/18 04:00 CK/CKMB % Calc 3.8 % (<4) 06/27/18 04:00 Troponin I < 0.02 ng/mL (0-1.5) 06/27/18 04:00 C-Reactive Protein 5.40 mg/L (0-3.0) H 06/26/18 11:30 Total Protein 6.5 g/dL (6.4-8.2) 06/28/18 04:05 Albumin 3.1 g/dL (3.4-5.0) L 06/28/18 04:05 Globulin 3.4 g/dL (2.5-4.5) 06/28/18 04:05 Albumin/Globulin Ratio 0.9 Ratio (1.1-2.1) L 06/28/18 04:05 Amylase 56 Units/L (25-115) 06/26/18 11:30 Lipase 183 Units/L (73-393) 06/26/18 11:30 Specimen Type Random urine 06/26/18 14:25 Urine Color Yellow (YELLOW) 06/26/18 14:25 Urine Appearance Clear (CLEAR) 06/26/18 14:25 Urine pH 6.0 (5.0 - 8.0) 06/26/18 14:25 Ur Specific [place] 1.010 (1.000-1.030) 06/26/18 14:25 Urine Protein Negative (NEGATIVE) 06/26/18 14:25 Urine Glucose (UA) 4+ (NEGATIVE) 06/26/18 14:25 Urine Ketones 1+ (NEGATIVE) 06/26/18 14:25 Urine Occult Blood Negative (NEGATIVE) 06/26/18 14:25 Urine Nitrite Negative (NEGATIVE) 06/26/18 14:25 Urine Bilirubin Negative (NEGATIVE) 06/26/18 14:25 Urine Urobilinogen Normal (NORMAL) 06/26/18 14:25 Ur Leukocyte Esterase Negative (NEGATIVE) 06/26/18 14:25 - Plan (1) Bronchopneumonia Status: Acute Plan: LEVAQUIN 750MG IV DAILY, RESPIRATORY TREATMENTS, SUPPLEMENTAL OXYGEN, CONTINUE TO MONITOR (2) Acute onset of severe vertigo Status: Acute Plan: MECLIZINE 25MG PO TID, CONTINUE TO MONITOR (3) Generalized weakness Status: Acute Plan: OBTAIN BRAIN MRI, CONTINUE TO MONITOR
--- NOTE | 2018-08-02 23:21 | DR.CARTERD ---
- Discharge Summary for: Discharge Summary for Date of:: 06/28/18 - Admission Date Date of Admission: 06/26/18 - Admission Diagnoses Admission Diagnosis: (1) Bronchopneumonia (2) Acute onset of severe vertigo (3) Generalized weakness - Discharge Date Discharge Date: 06/28/18 - Discharge Diagnoses Discharge Diagnosis: (1) Bronchopneumonia (2) Acute onset of severe vertigo (3) Generalized weakness - Hospital Course Hospital Course: DAY ONE, IS A 72 YEAR OLD PATIENT OF OURS WHO PRESENTED TO THE EMERGENCY ROOM WITH COMPLAINTS OF SEVERE DIZZINESS AND WEAKNESS. HE ALSO COMPLAINED OF NAUSEA AND VOMITING SINCE EARLY THIS MORNING. HE DENIED FEVER. ON ARRIVAL, VITALS WERE 96.0-65-22-96%-181/86. LABS WERE OBTAINED. ABNORMAL LAB VALUES INCLUDED THE FOLLOWING: WBC 12.2, RBC 4.25, HGB 12.5, HCT 37.0, GLUCOSE 252, LACTIC ACID 2.4, CALCIUM 8.4. BLOOD CULTURES COLLECTED. AN ABDOMEN SERIES REVEALED: No evidence of bowel obstruction or perforation. Stable and unchanged 4 mm left lower pole kidney stone. Expiratory chest with foci of bronchitis or interstitial pneumonitis bilaterally, primarily in the lung bases. BRAIN CT OBTAINED AND REVEALED: No definite evidence of an acute intracranial process. If clinical concern persists for acute stroke and it would alter patient management, consider MRI/MRA brain. Chronic infarction right paracentral lobule and associated encephalomalacia with slight anterior and posterior extension. Chronic lacunar infarction right lentiform nucleus. Moderate microvascular white matter ischemic changes, with associated volume loss. EKG REVEALED: SINUS RHYTHM WITH HR 70. HE WAS ADMITTED TO THE HOSPITAL FOR FURTHER EVALUATION AND TREATMENT OF BRONCHOPNEUMONIA, SEVERE VERTIGO, AND GENERALIZED WEAKNESS. HE WAS STARTED ON NORMAL SALINE AT 75ML/HR, LEVAQUIN 750MG IV DAILY, RESPIRATORY TREATMENTS AND HOME MEDICATIONS WERE RESUMED. WE FOLLOWED UP WITH AM LABS AND CHEST XRAY AND CONTINUED TO MONITOR. DAY TWO, HE WAS ALERT AND ORIENTED, LYING IN BED ON MORNING ROUNDS. HE WAS NOTED WITH COMPLAINTS OF COUGH, SHORTNESS OF BREATH, AND WEAKNESS THIS MORNING. HE CONTINUED WITH DIZZINESS AT TIMES. HIS VITALS WERE 97.3-78-20-97%-141/70. ABNORMAL LAB VALUES INCLUDED THE FOLLOWING: WBC 13.2, RBC 4.05, HGB 11.8, HCT 35.2, GLUCOSE 223, CALCIUM 7.9, AST 14, ALK PHOS 40, CREATINE KINASE 37, ALBUMIN 3.2. WE OBTAINED A BRAIN MRI WHICH REVEALED: Acute to subacute infarct of the cerebellar vermis. Chronic infarcts as above. WE C ONTINUED WITH MECLIZINE, IV ANTIBIOTICS, RESPIRATORY TREATMENTS, AND CURRENT PLAN OF CARE. WE FOLLOWED UP WITH AM LABS AND CONTINUED TO MONITOR. DAY THREE, PATIENT SITTING UP IN BED ALERT AND ORIENTED. PATIENT VOICED NO COMPLAINTS THIS AM. VITALS WERE STABLE. LABS WERE IN NORMAL RANGE FOR PATIENT. WBCs WERE BACK WITHIN NORMAL LIMITS. WE PLANNED FOR DISCHARGE. INSTRUCTIONS FOR MEDICATIONS AND FOLLOW UP WERE DISCUSSED WITH PATIENT AND FAMILY, BOTH VOICED UNDERSTANDING. PATIENT WAS DISCHARGED HOME IN STABLE CONDITION WITH FAMILY. - Discharge Medications Discharge Medications: Home Medication List cholecalciferol (vitamin D3) [Vitamin D3] 10,000 units PO DAILY 06/26/18 [History] triamterene-hydrochlorothiazid [Dyazide] 1 tab PO DAILY 06/26/18 [History] levofloxacin [Levaquin] 750 mg PO QDAY #10 tab 06/28/18 [Rx] rosuvastatin [Crestor] 40 mg PO HS #30 tab 06/28/18 [Rx] Prescriptions: levofloxacin [Levaquin] Miguel Garcia rosuvastatin [Crestor] Miguel Garcia Ambulatory Orders clopidogrel [Plavix] 75 mg PO DAILY 11/06/13 meclizine 25 mg PO TID 11/06/13 metformin 1,000 mg PO BID 11/06/13 ranitidine HCl 150 mg PO BID 11/06/13 alprazolam 1 tab PO HS 02/25/18 fenofibrate micronized 1 cap PO DAILY 02/25/18 glipizide 1 tab PO DAILY 02/25/18 levothyroxine 75 mcg PO DAILY 02/25/18 liraglutide 0.6 mg SUB-Q DAILY 02/25/18 metoprolol tartrate 1 tab PO BID 02/25/18 aspirin 81 mg PO QDAY 05/09/18 - Discharge Disposition Discharge Disposition: PATIENT TO FOLLOW UP IN OUR OFFICE IN ONE WEEK.
== END 2018-06-28 14:00 | disposition home or self-care (01) ==
LOC: ER 10:57 → MED/SURG 10:57
PROVIDERS: ADMIT Internal Medicine; ATTEND Internal Medicine
CPT/HCPCS: 36415; 70450; 70551; 71010; 71045; 74022; 80053; 81003; 82150; 82550; 82553; 83036; 83605; 83690; 83735; 84484; 85025; 86140; 87040; 87070; 87205; 93005; 94640; 94760; 96365; 96367; 96372; 96374; 97116; 97162; 97166; 97530; 99284; A4216; A4222; G0378; J1815; J1956; J2405; J3475; J7030; J7620

== ENCOUNTER 2019-03-12 17:35 | Inpatient (IN) ==
[~2019-03-12 17:35] MED LIST: HumuLIN R ONE
[2019-03-12] MEDS ORDERED: GLUCOPHAGE ONE (22:00)
[2019-03-12] MEDS ORDERED: ELIQUIS ONE (22:00)
[2019-03-12] MEDS ORDERED: GLUCOTROL XL ONE (22:00)
[2019-03-12] MEDS ORDERED: ANTIVERT TAB 25 MG ONE (22:00)
[2019-03-12] MEDS ORDERED: LIPITOR TAB 40 MG ONE (22:00)
[2019-03-12] MEDS ORDERED: ZANTAC ONE (22:00)
[2019-03-12] MEDS ORDERED: COLACE CAP 100 MG PO ONE (22:00)
[2019-03-13] MEDS ORDERED: GLUCOPHAGE ONE (09:00)
[2019-03-13] MEDS ORDERED: ELIQUIS ONE ×2 (09:00→21:50)
[2019-03-13] MEDS ORDERED: ANTIVERT TAB 25 MG ONE (09:00)
[2019-03-13] MEDS ORDERED: NORVASC TAB 5 MG ONE (09:00)
[2019-03-13] MEDS ORDERED: SYNTHROID 75 mcg TAB ONE (09:00)
[2019-03-13] MEDS ORDERED: ZANTAC ONE ×2 (09:00→21:50)
[2019-03-13] MEDS ORDERED: TOPROL XL ONE (09:00)
[2019-03-13] MEDS ORDERED: ZOLOFT ONE (13:00)
[2019-03-13] MEDS ORDERED: LIPITOR TAB 40 MG ONE (21:50)
[2019-03-13] MEDS ORDERED: HumuLIN R ONE (21:50)
[2019-03-13] MEDS ORDERED: GLUCOTROL ONE (21:50)
[2019-03-13] MEDS ORDERED: COLACE CAP 100 MG PO ONE (21:50)
[2019-03-14 06:48] LABS: BASOPHILS # (AUTO) 0.1 X10^3/uL (0.0-0.1); BASOPHILS % (AUTO) 1.1 % (0.2-1.0); EOSINOPHILS # (AUTO) 0.2 x10^3/uL (0.0-0.2); EOSINOPHILS % (AUTO) 2.9 % (0.9-2.9); HEMATOCRIT 36.4 % (42.0-54.0); HEMOGLOBIN 12.4 g/dL (13.5-18.0); LYMPHOCYTES # (AUTO) 1.6 X10^3/uL (1.3-2.9); LYMPHOCYTES % (AUTO) 19.6 % (21.0-51.0); MEAN CORPUSCULAR HEMOGLOBIN 29.3 pg (27.0-34.0); MEAN CORPUSCULAR HGB CONC 34.1 g/dL (33.0-35.0); MEAN CORPUSCULAR VOLUME 85.9 fL (80.0-100.0); MEAN PLATELET VOLUME 7.8 fL (7.4-11.0); MONOCYTES # (AUTO) 0.8 x10^3/uL (0.3-0.8); MONOCYTES % (AUTO) 9.4 % (0.0-13.0); NEUTROPHILS # (AUTO) 5.6 x10^3/uL (2.2-4.8); PLATELET COUNT 296 X10^3/uL (150.0-450.0); RED BLOOD COUNT 4.23 X10^6/uL (4.7-6.0); RED CELL DISTRIBUTION WIDTH 12.7 % (11.6-16.5); WHITE BLOOD COUNT 8.3 X10^3/uL (3.6-10.0)
[2019-03-14 06:53] LABS: ALANINE AMINOTRANSFERASE 16 Units/L (12-78); ALBUMIN 2.8 g/dL (3.4-5.0); ALKALINE PHOSPHATASE 59 Units/L (46-116); ASPARTATE AMINO TRANSFERASE 15 Units/L (15-37); BLOOD UREA NITROGEN 13 mg/dL (7-18); CALCIUM 8.7 mg/dL (8.5-10.1); CARBON DIOXIDE 26.4 mmol/L (21-32); CHLORIDE 102 mmol/L (98-107); COR CA(FOR HYPOALB) 9.7 mg/dL (8.5-10.1); COR NA(FOR HYPERGLY) 139 mmol/L (136-145); CREATININE 0.76 mg/dL (0.70-1.30); SODIUM 138 mmol/L (136-145); TOTAL PROTEIN 6.9 g/dL (6.4-8.2); eGFR NON BLACK RACES > 60 (>60)
[2019-03-14] MEDS ORDERED: CHRONULAC PO PRN (07:29)
[2019-03-14] MEDS: ASPIRIN EC 81 MG PO SCH (14:51)
[2019-03-14] MEDS: ANTIVERT TAB 25 MG PO SCH ×2 (14:51→20:59)
[2019-03-14] MEDS: ELIQUIS PO SCH ×2 (14:52→20:59)
[2019-03-14] MEDS: COLACE CAP 100 MG PO SCH (14:52)
[2019-03-14] MEDS: ZANTAC PO SCH ×2 (14:53→20:59)
[2019-03-14] MEDS: TOPROL XL PO SCH (14:53)
[2019-03-14] MEDS: NORVASC TAB 5 MG PO SCH (14:53)
[2019-03-14] MEDS: GLUCOPHAGE PO SCH ×2 (14:53→21:00)
[2019-03-14] MEDS: ZOLOFT PO SCH (14:54)
[2019-03-14] MEDS ORDERED: K-RIDER 10 MEQ/NS 100 ML 10 MEQ/100 ML BAG IV PRN (17:42)
[2019-03-14] MEDS ORDERED: POTASSIUM CHLORIDE LIQ 20 MEQ UDC PO PRN (17:42)
[2019-03-14] MEDS ORDERED: POTASSIUM CHL 40 MEQ/NS 0.45% 500 ML IV PRN (17:42)
[2019-03-14] MEDS ORDERED: MAGNESIUM SULFATE 1 GRAM/100 mL PREMIX 1 GM/100 ML BAG IV PRN (17:42)
[2019-03-14] MEDS ORDERED: K-DUR TAB 20 MEQ PO PRN (17:42)
[2019-03-14] MEDS ORDERED: POTASSIUM CHL 60 MEQ/NS 0.45% 500 ML IV PRN (17:42)
[2019-03-14] MEDS ORDERED: MICRO K EXTEN CAP 10 MEQ PO PRN (17:42)
[2019-03-14] MEDS: LIPITOR TAB 40 MG PO SCH (20:59)
[2019-03-14] MEDS: HumuLIN R SUBCUT PRN (21:01)
--- NOTE | 2019-03-15 00:12 | DR.H&P ---
H&P - History & Physical for Day of: H&P Date: 03/12/19 - Chief Complaint Chief Complaint: Swing Bed admission secondary to CVA - History of Present Illness History of Present Illness: the patient is a 73-year-old white male who is admitted to swing bed after having a CVA. Patient has aphasia. The difficulty getting simple words out. Denies major deficit noted to the extremities. is present. - Past Medical History Past Medical History: Angina, CVA, Diabetes, Dyslipidemia, Hypothyroidism Additional Medical History: aphasia - Past Surgical History Surgical History: CABG/Valve Surgery, Carotid Endarterectomy, Ortho Surgery, Other - Family History Family Medical History: Cancer, [place] - Social History Does patient currently use any type of tobacco product: No Have you used tobacco products in the last 12 months: No Type of Tobacco Use: None Does any household member use tobacco: No Alcohol Use: None Drug Use: None Prescription drug monitoring program results: PDMP reviewed and no concerns identified - Medications Home Medications: No Known Drug Allergies [NKDA] Allergy (Verified 03/06/19 07:52) CONTINUE taking the following medications amlodipine 5 mg PO DAILY 03/14/19 [History] apixaban [Eliquis] 5 mg PO BID 03/14/19 [History] aspirin 81 mg PO DAILY 03/14/19 [History] atorvastatin 40 mg PO HS 03/14/19 [History] docusate sodium 100 mg PO DAILY 03/14/19 [History] glipizide 10 mg PO DAILY 03/14/19 [History] levothyroxine 75 mcg PO DAILY 03/14/19 [History] liraglutide [Victoza 3-Erick] See Rx Instructions .ROUTE .COMPLEX 03/14/19 [History] metformin 1,000 mg PO BID 03/14/19 [History] metoprolol succinate [Toprol XL] 50 mg PO DAILY 03/14/19 [History] ranitidine HCl [Zantac] 150 mg PO DAILY 03/14/19 [History] - Review of Systems Constitutional: No Symptoms Reported Eyes: No Symptoms Reported ENT: No Symptoms Reported Respiratory: No Symptoms Reported Cardiovascular: No Symptoms Reported Gastrointestinal: No Symptoms Reported Genitourinary: No Symptoms Reported Musculoskeletal: No Symptoms Reported Skin: No Symptoms Reported Neurological: Change in Speech - Physical Exam Vital Signs: Temperature 97.9 F Pulse Rate [Left Brachial] 79 Respiratory Rate 18 Blood Pressure [Left Arm] 149/69 Blood Pressure [Right Arm] 191/86 Blood Pressure 163/77 O2 Sat by Pulse Oximetry 97 Oriented: Normal Eyes: Normal Ear: Normal Nose: Normal Throat: Normal Respiratory: Clear Throughout Cardiovascular: Normal : Normal Auscultation: Bowel Sounds: Normal Palpation: Normal Tenderness: Normal Skin: Normal Musculoskeletal: Normal Psychiatric: Normal Mood Description: Calm Affect: Normal Speech Pattern: Aphasic - Assessment/Plan (1) CVA (cerebral vascular accident) Status: Acute Plan: Speech and physical therapy, (2) Aphasia following cerebrovascular accident (CVA) Status: Acute Plan: Speech therapy - Allergies Allergies/Adverse Reactions: Allergies Allergy/AdvReac Type Severity Reaction Status Date / Time No Known Drug Allergies Allergy Verified 03/06/19 07:52 [NKDA]
--- NOTE | 2019-03-15 00:14 | PCM.PROG ---
Progress Note - Progress Note for Day of Date of Exam: 03/13/19 - Subjective Subjective: the patient is a 73-year-old white male who is a admission to swing bed following a CVA. Patient does have marked aphasia. No significant motor deficits noted. Patient does get emotional and tears easily. this was concerns about this. Patient is agreeable for medication for depression. Patient has ambulated 3 times around the nurs without difficulty. No other complaints are voiced at present. - Past Medical Family Social History Past Med/Fam/Surg Hx: No changes since H&P Allergies: Allergies No Known Drug Allergies [NKDA] Allergy (Verified 03/06/19 07:52) - Review of Systems ROS: No change since H&P - Vital Signs and I&O's Vital Signs: Temperature 97.9 F Pulse Rate [Left Brachial] 79 Respiratory Rate 18 Blood Pressure [Left Arm] 149/69 Blood Pressure [Right Arm] 191/86 Blood Pressure 163/77 O2 Sat by Pulse Oximetry 97 Intake and Output: Intake & Output 03/12/19 03/13/19 03/14/19 03/15/19 23:59 23:59 23:59 23:59 Intake Total 1420 / 1420 Balance 1420 / 1420 - Physical Exam Oriented: Normal Eyes: Normal Ear: Normal Nose: Normal Throat: Normal Cardiovascular: Normal : Normal Auscultation: Bowel Sounds: Normal Tenderness: Normal Skin: Normal Musculoskeletal: Normal Psychiatric: Normal Mood Description: Calm Affect: Normal Speech Pattern: Aphasic - Laboratory and Diagnostics Result Diagrams: 03/14/19 05:09 03/14/19 05:09 Labs: Laboratory WBC 8.3 X10^3/uL (3.6-10.0) 03/14/19 05:09 RBC 4.23 X10^6/uL (4.7-6.0) L 03/14/19 05:09 Hgb 12.4 g/dL (13.5-18.0) L 03/14/19 05:09 Hct 36.4 % (42.0-54.0) L 03/14/19 05:09 MCV 85.9 fL (80.0-100.0) 03/14/19 05:09 MCH 29.3 pg (27.0-34.0) 03/14/19 05:09 MCHC 34.1 g/dL (33.0-35.0) 03/14/19 05:09 RDW 12.7 % (11.6-16.5) 03/14/19 05:09 Plt Count 296 X10^3/uL (150.0-450.0) 03/14/19 05:09 MPV 7.8 fL (7.4-11.0) 03/14/19 05:09 Neut % (Auto) 67.0 % (42.0-75.0) 03/14/19 05:09 Lymph % (Auto) 19.6 % (21.0-51.0) L 03/14/19 05:09 [place] % (Auto) 9.4 % (0.0-13.0) 03/14/19 05:09 Eos % (Auto) 2.9 % (0.9-2.9) 03/14/19 05:09 Baso % (Auto) 1.1 % (0.2-1.0) H 03/14/19 05:09 Neut # (Auto) 5.6 x10^3/uL (2.2-4.8) H 03/14/19 05:09 Lymph # (Auto) 1.6 X10^3/uL (1.3-2.9) 03/14/19 05:09 [place] # (Auto) 0.8 x10^3/uL (0.3-0.8) 03/14/19 05:09 Eos # (Auto) 0.2 x10^3/uL (0.0-0.2) 03/14/19 05:09 Baso # (Auto) 0.1 X10^3/uL (0.0-0.1) 03/14/19 05:09 Absolute Nucleated RBC 0.0 /100WBC 03/14/19 05:09 Sodium 138 mmol/L (136-145) 03/14/19 05:09 Corrected Sodium 139 mmol/L (136-145) 03/14/19 05:09 Potassium 3.3 mmol/L (3.5-5.1) L 03/14/19 05:09 Chloride 102 mmol/L (98-107) 03/14/19 05:09 Carbon Dioxide 26.4 mmol/L (21-32) 03/14/19 05:09 BUN 13 mg/dL (7-18) 03/14/19 05:09 Creatinine 0.76 mg/dL (0.70-1.30) 03/14/19 05:09 Est GFR (MDRD) Af Amer > 60 (>60) 03/14/19 05:09 Est GFR (MDRD) Non-Af > 60 (>60) 03/14/19 05:09 Glucose 133 mg/dL (65-99) H 03/14/19 05:09 Calcium 8.7 mg/dL (8.5-10.1) 03/14/19 05:09 Corrected Calcium 9.7 mg/dL (8.5-10.1) 03/14/19 05:09 Total Bilirubin 0.30 mg/dL (0.2-1.0) 03/14/19 05:09 AST 15 Units/L (15-37) 03/14/19 05:09 ALT 16 Units/L (12-78) 03/14/19 05:09 Alkaline Phosphatase 59 Units/L (46-116) 03/14/19 05:09 Total Protein 6.9 g/dL (6.4-8.2) 03/14/19 05:09 Albumin 2.8 g/dL (3.4-5.0) L 03/14/19 05:09 Globulin 4.1 g/dL (2.5-4.5) 03/14/19 05:09 Albumin/Globulin Ratio 0.7 Ratio (1.1-2.1) L 03/14/19 05:09 - Plan (1) CVA (cerebral vascular accident) Status: Acute Plan: Speech and physical therapy, (2) Aphasia following cerebrovascular accident (CVA) Status: Acute Plan: Speech therapy
--- NOTE | 2019-03-15 00:15 | PCM.PROG ---
Progress Note - Progress Note for Day of Date of Exam: 03/14/19 - Subjective Subjective: the patient is a 73-year-old white male who is a admission to swing bed following a CVA. Patient does have marked aphasia. No significant motor deficits noted. Patient is sitting up in the recliner. States he has ambulated 3 times around the nurse's station. No other complaints are voiced at present. - Past Medical Family Social History Past Med/Fam/Surg Hx: No changes since H&P Allergies: Allergies No Known Drug Allergies [NKDA] Allergy (Verified 03/06/19 07:52) - Review of Systems ROS: No change since H&P - Vital Signs and I&O's Vital Signs: Temperature 97.9 F Pulse Rate [Left Brachial] 79 Respiratory Rate 18 Blood Pressure [Left Arm] 149/69 Blood Pressure [Right Arm] 191/86 Blood Pressure 163/77 O2 Sat by Pulse Oximetry 97 Intake and Output: Intake & Output 03/12/19 03/13/19 03/14/19 03/15/19 23:59 23:59 23:59 23:59 Intake Total 1420 / 1420 Balance 1420 / 1420 - Physical Exam Oriented: Normal Eyes: Normal Ear: Normal Nose: Normal Throat: Normal Cardiovascular: Normal : Normal Auscultation: Bowel Sounds: Normal Tenderness: Normal Skin: Normal Musculoskeletal: Normal Psychiatric: Normal Mood Description: Calm Affect: Normal Speech Pattern: Aphasic - Laboratory and Diagnostics Result Diagrams: 03/14/19 05:09 03/14/19 05:09 Labs: Laboratory WBC 8.3 X10^3/uL (3.6-10.0) 03/14/19 05:09 RBC 4.23 X10^6/uL (4.7-6.0) L 03/14/19 05:09 Hgb 12.4 g/dL (13.5-18.0) L 03/14/19 05:09 Hct 36.4 % (42.0-54.0) L 03/14/19 05:09 MCV 85.9 fL (80.0-100.0) 03/14/19 05:09 MCH 29.3 pg (27.0-34.0) 03/14/19 05:09 MCHC 34.1 g/dL (33.0-35.0) 03/14/19 05:09 RDW 12.7 % (11.6-16.5) 03/14/19 05:09 Plt Count 296 X10^3/uL (150.0-450.0) 03/14/19 05:09 MPV 7.8 fL (7.4-11.0) 03/14/19 05:09 Neut % (Auto) 67.0 % (42.0-75.0) 03/14/19 05:09 Lymph % (Auto) 19.6 % (21.0-51.0) L 03/14/19 05:09 Barton % (Auto) 9.4 % (0.0-13.0) 03/14/19 05:09 Eos % (Auto) 2.9 % (0.9-2.9) 03/14/19 05:09 Baso % (Auto) 1.1 % (0.2-1.0) H 03/14/19 05:09 Neut # (Auto) 5.6 x10^3/uL (2.2-4.8) H 03/14/19 05:09 Lymph # (Auto) 1.6 X10^3/uL (1.3-2.9) 03/14/19 05:09 Barton # (Auto) 0.8 x10^3/uL (0.3-0.8) 03/14/19 05:09 Eos # (Auto) 0.2 x10^3/uL (0.0-0.2) 03/14/19 05:09 Baso # (Auto) 0.1 X10^3/uL (0.0-0.1) 03/14/19 05:09 Absolute Nucleated RBC 0.0 /100WBC 03/14/19 05:09 Sodium 138 mmol/L (136-145) 03/14/19 05:09 Corrected Sodium 139 mmol/L (136-145) 03/14/19 05:09 Potassium 3.3 mmol/L (3.5-5.1) L 03/14/19 05:09 Chloride 102 mmol/L (98-107) 03/14/19 05:09 Carbon Dioxide 26.4 mmol/L (21-32) 03/14/19 05:09 BUN 13 mg/dL (7-18) 03/14/19 05:09 Creatinine 0.76 mg/dL (0.70-1.30) 03/14/19 05:09 Est GFR (MDRD) Af Amer > 60 (>60) 03/14/19 05:09 Est GFR (MDRD) Non-Af > 60 (>60) 03/14/19 05:09 Glucose 133 mg/dL (65-99) H 03/14/19 05:09 Calcium 8.7 mg/dL (8.5-10.1) 03/14/19 05:09 Corrected Calcium 9.7 mg/dL (8.5-10.1) 03/14/19 05:09 Total Bilirubin 0.30 mg/dL (0.2-1.0) 03/14/19 05:09 AST 15 Units/L (15-37) 03/14/19 05:09 ALT 16 Units/L (12-78) 03/14/19 05:09 Alkaline Phosphatase 59 Units/L (46-116) 03/14/19 05:09 Total Protein 6.9 g/dL (6.4-8.2) 03/14/19 05:09 Albumin 2.8 g/dL (3.4-5.0) L 03/14/19 05:09 Globulin 4.1 g/dL (2.5-4.5) 03/14/19 05:09 Albumin/Globulin Ratio 0.7 Ratio (1.1-2.1) L 03/14/19 05:09 - Plan (1) CVA (cerebral vascular accident) Status: Acute Plan: Speech and physical therapy, (2) Aphasia following cerebrovascular accident (CVA) Status: Acute Plan: Speech therapy
[2019-03-15 05:18] LABS: BASOPHILS # (AUTO) 0.1 X10^3/uL (0.0-0.1); BASOPHILS % (AUTO) 0.8 % (0.2-1.0); EOSINOPHILS # (AUTO) 0.3 x10^3/uL (0.0-0.2); EOSINOPHILS % (AUTO) 2.9 % (0.9-2.9); HEMATOCRIT 35.2 % (42.0-54.0); LYMPHOCYTES # (AUTO) 1.7 X10^3/uL (1.3-2.9); LYMPHOCYTES % (AUTO) 17.1 % (21.0-51.0); MEAN CORPUSCULAR HEMOGLOBIN 29.5 pg (27.0-34.0); MEAN CORPUSCULAR HGB CONC 34.2 g/dL (33.0-35.0); MEAN CORPUSCULAR VOLUME 86.3 fL (80.0-100.0); MEAN PLATELET VOLUME 7.7 fL (7.4-11.0); MONOCYTES # (AUTO) 1.2 x10^3/uL (0.3-0.8); MONOCYTES % (AUTO) 12.1 % (0.0-13.0); NEUTROPHILS # (AUTO) 6.6 x10^3/uL (2.2-4.8); NEUTROPHILS % (AUTO) 67.1 % (42.0-75.0); PLATELET COUNT 284 X10^3/uL (150.0-450.0); RED BLOOD COUNT 4.07 X10^6/uL (4.7-6.0); RED CELL DISTRIBUTION WIDTH 12.7 % (11.6-16.5); WHITE BLOOD COUNT 9.8 X10^3/uL (3.6-10.0)
[2019-03-15 05:34] LABS: ALANINE AMINOTRANSFERASE 21 Units/L (12-78); ALBUMIN 2.9 g/dL (3.4-5.0); ALKALINE PHOSPHATASE 55 Units/L (46-116); ASPARTATE AMINO TRANSFERASE 14 Units/L (15-37); BLOOD UREA NITROGEN 13 mg/dL (7-18); CALCIUM 8.5 mg/dL (8.5-10.1); CARBON DIOXIDE 24.5 mmol/L (21-32); CHLORIDE 103 mmol/L (98-107); COR CA(FOR HYPOALB) 9.4 mg/dL (8.5-10.1); COR NA(FOR HYPERGLY) 138 mmol/L (136-145); CREATININE 0.78 mg/dL (0.70-1.30); MAGNESIUM 1.3 mg/dL (1.7-2.9); SODIUM 138 mmol/L (136-145); TOTAL PROTEIN 6.7 g/dL (6.4-8.2); eGFR NON BLACK RACES > 60 (>60)
[2019-03-15] MEDS: KLOR-CON PO PRN (06:42)
[2019-03-15] MEDS: SYNTHROID 75 mcg TAB PO SCH (06:42)
[2019-03-15] MEDS: GLUCOTROL PO SCH (06:42)
[2019-03-15] MEDS: ANTIVERT TAB 25 MG PO SCH ×2 (08:39→21:05)
[2019-03-15] MEDS: COLACE CAP 100 MG PO SCH (08:39)
[2019-03-15] MEDS: ASPIRIN EC 81 MG PO SCH (08:39)
[2019-03-15] MEDS: ZANTAC PO SCH ×2 (08:40→21:07)
[2019-03-15] MEDS: ZOLOFT PO SCH (08:40)
[2019-03-15] MEDS: ELIQUIS PO SCH ×2 (08:40→21:06)
[2019-03-15] MEDS: TOPROL XL PO SCH (08:40)
[2019-03-15] MEDS: GLUCOPHAGE PO SCH ×2 (08:40→21:08)
[2019-03-15] MEDS: NORVASC TAB 5 MG PO SCH (08:41)
[2019-03-15] MEDS: MAG-OX TAB PO SCH ×2 (09:53→16:24)
[2019-03-15] MEDS: HumuLIN R SUBCUT PRN ×2 (12:40→21:08)
[2019-03-15] MEDS ORDERED: GLUCOPHAGE ONE (19:45)
[2019-03-15] MEDS: LIPITOR TAB 40 MG PO SCH (21:05)
[2019-03-16 04:49] LABS: MAGNESIUM 1.4 mg/dL (1.7-2.9)
[2019-03-16] MEDS: GLUCOTROL PO SCH (06:02)
[2019-03-16] MEDS: MAG-OX TAB PO SCH ×2 (06:02→16:44)
[2019-03-16] MEDS: SYNTHROID 75 mcg TAB PO SCH (06:02)
[2019-03-16] MEDS: KLOR-CON PO PRN (06:03)
[2019-03-16] MEDS ORDERED: GLUCOPHAGE ONE ×2 (08:46→20:07)
[2019-03-16] MEDS: ELIQUIS PO SCH ×2 (09:15→21:11)
[2019-03-16] MEDS: COLACE CAP 100 MG PO SCH (09:15)
[2019-03-16] MEDS: NORVASC TAB 5 MG PO SCH (09:15)
[2019-03-16] MEDS: ASPIRIN EC 81 MG PO SCH (09:15)
[2019-03-16] MEDS: ZANTAC PO SCH ×2 (09:15→21:10)
[2019-03-16] MEDS: GLUCOPHAGE PO SCH ×2 (09:15→21:10)
[2019-03-16] MEDS: ZOLOFT PO SCH (09:15)
[2019-03-16] MEDS: TOPROL XL PO SCH (09:15)
[2019-03-16] MEDS: ANTIVERT TAB 25 MG PO SCH ×2 (09:15→21:10)
[2019-03-16] MEDS: LIPITOR TAB 40 MG PO SCH (21:11)
[2019-03-16] MEDS: HumuLIN R SUBCUT PRN (21:14)
[2019-03-17 05:08] LABS: BASOPHILS # (AUTO) 0.1 X10^3/uL (0.0-0.1); BASOPHILS % (AUTO) 0.8 % (0.2-1.0); EOSINOPHILS # (AUTO) 0.2 x10^3/uL (0.0-0.2); EOSINOPHILS % (AUTO) 1.6 % (0.9-2.9); HEMATOCRIT 35.9 % (42.0-54.0); HEMOGLOBIN 12.2 g/dL (13.5-18.0); LYMPHOCYTES # (AUTO) 1.6 X10^3/uL (1.3-2.9); LYMPHOCYTES % (AUTO) 17.3 % (21.0-51.0); MEAN CORPUSCULAR HEMOGLOBIN 29.2 pg (27.0-34.0); MEAN CORPUSCULAR VOLUME 85.7 fL (80.0-100.0); MEAN PLATELET VOLUME 7.5 fL (7.4-11.0); MONOCYTES % (AUTO) 10.1 % (0.0-13.0); NEUTROPHILS # (AUTO) 6.7 x10^3/uL (2.2-4.8); NEUTROPHILS % (AUTO) 70.2 % (42.0-75.0); PLATELET COUNT 314 X10^3/uL (150.0-450.0); RED BLOOD COUNT 4.19 X10^6/uL (4.7-6.0); WHITE BLOOD COUNT 9.5 X10^3/uL (3.6-10.0)
[2019-03-17 05:29] LABS: ALANINE AMINOTRANSFERASE 16 Units/L (12-78); ALBUMIN 2.9 g/dL (3.4-5.0); ALKALINE PHOSPHATASE 66 Units/L (46-116); ASPARTATE AMINO TRANSFERASE 16 Units/L (15-37); BLOOD UREA NITROGEN 12 mg/dL (7-18); CALCIUM 8.6 mg/dL (8.5-10.1); CARBON DIOXIDE 25.5 mmol/L (21-32); CHLORIDE 101 mmol/L (98-107); COR CA(FOR HYPOALB) 9.5 mg/dL (8.5-10.1); COR NA(FOR HYPERGLY) 140 mmol/L (136-145); CREATININE 0.86 mg/dL (0.70-1.30); SODIUM 138 mmol/L (136-145); eGFR NON BLACK RACES > 60 (>60)
[2019-03-17] MEDS: GLUCOTROL PO SCH (06:02)
[2019-03-17] MEDS: SYNTHROID 75 mcg TAB PO SCH (06:03)
[2019-03-17] MEDS: MAG-OX TAB PO SCH ×2 (06:03→16:30)
[2019-03-17] MEDS ORDERED: GLUCOPHAGE ONE ×2 (07:09→20:16)
[2019-03-17] MEDS: ASPIRIN EC 81 MG PO SCH (08:43)
[2019-03-17] MEDS: TOPROL XL PO SCH (08:43)
[2019-03-17] MEDS: ZANTAC PO SCH ×2 (08:43→20:51)
[2019-03-17] MEDS: ZOLOFT PO SCH (08:43)
[2019-03-17] MEDS: NORVASC TAB 5 MG PO SCH (08:43)
[2019-03-17] MEDS: ELIQUIS PO SCH ×2 (08:43→20:52)
[2019-03-17] MEDS: COLACE CAP 100 MG PO SCH (08:44)
[2019-03-17] MEDS: GLUCOPHAGE PO SCH ×2 (08:44→20:52)
[2019-03-17] MEDS: ANTIVERT TAB 25 MG PO SCH ×2 (08:44→20:52)
[2019-03-17] MEDS: HumuLIN R SUBCUT PRN (12:10)
[2019-03-17] MEDS: LIPITOR TAB 40 MG PO SCH (20:52)
[2019-03-18] MEDS: SYNTHROID 75 mcg TAB PO SCH (06:03)
[2019-03-18] MEDS: GLUCOTROL PO SCH (06:03)
[2019-03-18] MEDS: MAG-OX TAB PO SCH ×2 (06:03→16:45)
[2019-03-18] MEDS ORDERED: GLUCOPHAGE ONE ×2 (07:11→20:35)
[2019-03-18] MEDS: ZANTAC PO SCH ×2 (08:24→21:01)
[2019-03-18] MEDS: ANTIVERT TAB 25 MG PO SCH ×2 (08:24→21:02)
[2019-03-18] MEDS: ELIQUIS PO SCH ×2 (08:25→21:01)
[2019-03-18] MEDS: ASPIRIN EC 81 MG PO SCH (08:25)
[2019-03-18] MEDS: NORVASC TAB 5 MG PO SCH (08:25)
[2019-03-18] MEDS: GLUCOPHAGE PO SCH ×2 (08:25→21:00)
[2019-03-18] MEDS: TOPROL XL PO SCH (08:25)
[2019-03-18] MEDS: ZOLOFT PO SCH (08:25)
[2019-03-18] MEDS: COLACE CAP 100 MG PO SCH (08:25)
[2019-03-18] MEDS: LIPITOR TAB 40 MG PO SCH (21:01)
[2019-03-19 05:10] LABS: BASOPHILS # (AUTO) 0.1 X10^3/uL (0.0-0.1); BASOPHILS % (AUTO) 0.6 % (0.2-1.0); EOSINOPHILS # (AUTO) 0.1 x10^3/uL (0.0-0.2); EOSINOPHILS % (AUTO) 1.1 % (0.9-2.9); HEMATOCRIT 34.2 % (42.0-54.0); HEMOGLOBIN 11.6 g/dL (13.5-18.0); LYMPHOCYTES # (AUTO) 1.6 X10^3/uL (1.3-2.9); MEAN CORPUSCULAR HEMOGLOBIN 29.3 pg (27.0-34.0); MEAN CORPUSCULAR VOLUME 86.2 fL (80.0-100.0); MEAN PLATELET VOLUME 7.4 fL (7.4-11.0); MONOCYTES # (AUTO) 1.1 x10^3/uL (0.3-0.8); MONOCYTES % (AUTO) 9.9 % (0.0-13.0); NEUTROPHILS # (AUTO) 7.8 x10^3/uL (2.2-4.8); NEUTROPHILS % (AUTO) 73.4 % (42.0-75.0); PLATELET COUNT 306 X10^3/uL (150.0-450.0); RED BLOOD COUNT 3.97 X10^6/uL (4.7-6.0); RED CELL DISTRIBUTION WIDTH 12.7 % (11.6-16.5); WHITE BLOOD COUNT 10.7 X10^3/uL (3.6-10.0)
[2019-03-19 05:25] LABS: ALANINE AMINOTRANSFERASE 14 Units/L (12-78); ALBUMIN 2.8 g/dL (3.4-5.0); ALKALINE PHOSPHATASE 60 Units/L (46-116); ASPARTATE AMINO TRANSFERASE 12 Units/L (15-37); BLOOD UREA NITROGEN 13 mg/dL (7-18); CALCIUM 8.8 mg/dL (8.5-10.1); CARBON DIOXIDE 27.5 mmol/L (21-32); CHLORIDE 101 mmol/L (98-107); COR CA(FOR HYPOALB) 9.8 mg/dL (8.5-10.1); COR NA(FOR HYPERGLY) 137 mmol/L (136-145); CREATININE 0.89 mg/dL (0.70-1.30); SODIUM 136 mmol/L (136-145); TOTAL PROTEIN 6.9 g/dL (6.4-8.2); eGFR NON BLACK RACES > 60 (>60)
[2019-03-19] MEDS: KLOR-CON PO PRN (05:49)
[2019-03-19] MEDS: GLUCOTROL PO SCH (06:00)
[2019-03-19] MEDS: SYNTHROID 75 mcg TAB PO SCH (06:00)
[2019-03-19] MEDS: MAG-OX TAB PO SCH ×2 (06:00→16:43)
[2019-03-19] MEDS ORDERED: GLUCOPHAGE ONE ×2 (08:33→21:18)
[2019-03-19] MEDS: TOPROL XL PO SCH (10:04)
[2019-03-19] MEDS: ZOLOFT PO SCH (10:04)
[2019-03-19] MEDS: COLACE CAP 100 MG PO SCH (10:04)
[2019-03-19] MEDS: NORVASC TAB 5 MG PO SCH (10:04)
[2019-03-19] MEDS: ELIQUIS PO SCH ×2 (10:04→21:53)
[2019-03-19] MEDS: ZANTAC PO SCH ×2 (10:05→21:55)
[2019-03-19] MEDS: GLUCOPHAGE PO SCH ×2 (10:05→21:56)
[2019-03-19] MEDS: ASPIRIN EC 81 MG PO SCH (10:06)
[2019-03-19] MEDS: ANTIVERT TAB 25 MG PO SCH ×2 (10:06→21:55)
[2019-03-19] MEDS: NORCO 5/325 MG TAB PO PRN (17:12)
[2019-03-19] MEDS: HumuLIN R SUBCUT PRN ×2 (17:13→22:09)
[2019-03-19] MEDS: LIPITOR TAB 40 MG PO SCH (21:54)
[2019-03-20] MEDS: MAG-OX TAB PO SCH ×2 (05:59→17:23)
[2019-03-20] MEDS: SYNTHROID 75 mcg TAB PO SCH (06:00)
[2019-03-20] MEDS: GLUCOTROL PO SCH (06:00)
[2019-03-20] MEDS: NORCO 5/325 MG TAB PO PRN (06:00)
[2019-03-20] MEDS ORDERED: GLUCOPHAGE ONE (07:16)
[2019-03-20] MEDS: ASPIRIN EC 81 MG PO SCH (08:07)
[2019-03-20] MEDS: ZANTAC PO SCH ×2 (08:08→22:02)
[2019-03-20] MEDS: ANTIVERT TAB 25 MG PO SCH ×2 (08:08→22:02)
[2019-03-20] MEDS: COLACE CAP 100 MG PO SCH (08:08)
[2019-03-20] MEDS: ZOLOFT PO SCH (08:08)
[2019-03-20] MEDS: TOPROL XL PO SCH (08:08)
[2019-03-20] MEDS: NORVASC TAB 5 MG PO SCH (08:08)
[2019-03-20] MEDS: GLUCOPHAGE PO SCH (08:09)
[2019-03-20] MEDS: ELIQUIS PO SCH (08:09)
[2019-03-20] MEDS: LIPITOR TAB 40 MG PO SCH (22:03)
[2019-03-20] MEDS: LOVENOX INJ 30 MG SYR SC SCH (22:03)
[2019-03-20] MEDS: HumuLIN R SUBCUT PRN (22:04)
[2019-03-21] MEDS: GLUCOTROL PO SCH (06:08)
[2019-03-21] MEDS: SYNTHROID 75 mcg TAB PO SCH (06:09)
[2019-03-21] MEDS: MAG-OX TAB PO SCH ×2 (06:09→17:17)
[2019-03-21] MEDS: LOVENOX INJ 30 MG SYR SC SCH (08:26)
[2019-03-21] MEDS: NORVASC TAB 5 MG PO SCH (08:27)
[2019-03-21] MEDS: TOPROL XL PO SCH (08:27)
[2019-03-21] MEDS: ZANTAC PO SCH ×2 (08:27→21:56)
[2019-03-21] MEDS: ZOLOFT PO SCH (08:28)
[2019-03-21] MEDS: ANTIVERT TAB 25 MG PO SCH ×2 (08:28→21:55)
[2019-03-21] MEDS: ASPIRIN 81 MG CHEWTAB PO SCH (08:28)
[2019-03-21] MEDS ORDERED: COLACE SYRUP 100 MG UDC PO SCH (09:00)
[2019-03-21] MEDS: HumuLIN R SUBCUT PRN ×2 (12:02→17:18)
[2019-03-21] MEDS ORDERED: GLUCOPHAGE ONE (21:52)
[2019-03-21] MEDS: ELIQUIS PO SCH (21:55)
[2019-03-21] MEDS: LIPITOR TAB 40 MG PO SCH (21:55)
[2019-03-21] MEDS: GLUCOPHAGE PO SCH (21:56)
[2019-03-22 06:08] LABS: BASOPHILS # (AUTO) 0.1 X10^3/uL (0.0-0.1); EOSINOPHILS # (AUTO) 0.2 x10^3/uL (0.0-0.2); EOSINOPHILS % (AUTO) 2.1 % (0.9-2.9); HEMATOCRIT 35.2 % (42.0-54.0); HEMOGLOBIN 12.2 g/dL (13.5-18.0); LYMPHOCYTES # (AUTO) 1.9 X10^3/uL (1.3-2.9); LYMPHOCYTES % (AUTO) 21.1 % (21.0-51.0); MEAN CORPUSCULAR HEMOGLOBIN 29.4 pg (27.0-34.0); MEAN CORPUSCULAR HGB CONC 34.7 g/dL (33.0-35.0); MEAN CORPUSCULAR VOLUME 84.8 fL (80.0-100.0); MEAN PLATELET VOLUME 7.6 fL (7.4-11.0); MONOCYTES # (AUTO) 0.9 x10^3/uL (0.3-0.8); MONOCYTES % (AUTO) 10.4 % (0.0-13.0); NEUTROPHILS # (AUTO) 5.8 x10^3/uL (2.2-4.8); NEUTROPHILS % (AUTO) 65.4 % (42.0-75.0); PLATELET COUNT 340 X10^3/uL (150.0-450.0); RED BLOOD COUNT 4.15 X10^6/uL (4.7-6.0); RED CELL DISTRIBUTION WIDTH 12.7 % (11.6-16.5); WHITE BLOOD COUNT 8.8 X10^3/uL (3.6-10.0)
[2019-03-22] MEDS: GLUCOTROL PO SCH (06:11)
[2019-03-22] MEDS: MAG-OX TAB PO SCH ×2 (06:11→17:41)
[2019-03-22] MEDS: SYNTHROID 75 mcg TAB PO SCH (06:11)
[2019-03-22 06:18] LABS: ALANINE AMINOTRANSFERASE 20 Units/L (12-78); ALBUMIN 2.9 g/dL (3.4-5.0); ALKALINE PHOSPHATASE 61 Units/L (46-116); ASPARTATE AMINO TRANSFERASE 19 Units/L (15-37); BLOOD UREA NITROGEN 12 mg/dL (7-18); CALCIUM 8.9 mg/dL (8.5-10.1); CARBON DIOXIDE 25.2 mmol/L (21-32); CHLORIDE 102 mmol/L (98-107); COR CA(FOR HYPOALB) 9.8 mg/dL (8.5-10.1); COR NA(FOR HYPERGLY) 140 mmol/L (136-145); CREATININE 0.82 mg/dL (0.70-1.30); MAGNESIUM 1.6 mg/dL (1.7-2.9); SODIUM 139 mmol/L (136-145); TOTAL PROTEIN 7.1 g/dL (6.4-8.2); eGFR NON BLACK RACES > 60 (>60)
[2019-03-22] MEDS ORDERED: GLUCOPHAGE ONE ×2 (09:14→21:17)
[2019-03-22] MEDS: ELIQUIS PO SCH ×2 (09:46→22:01)
[2019-03-22] MEDS: ZOLOFT PO SCH (09:46)
[2019-03-22] MEDS: GLUCOPHAGE PO SCH ×2 (09:46→22:02)
[2019-03-22] MEDS: TOPROL XL PO SCH (09:46)
[2019-03-22] MEDS: ANTIVERT TAB 25 MG PO SCH ×2 (09:47→22:02)
[2019-03-22] MEDS: NORVASC TAB 5 MG PO SCH (09:47)
[2019-03-22] MEDS: ASPIRIN 81 MG CHEWTAB PO SCH (09:47)
[2019-03-22] MEDS: COLACE CAP 100 MG PO SCH (09:47)
[2019-03-22] MEDS: ZANTAC PO SCH ×2 (09:56→22:01)
[2019-03-22] MEDS: LIPITOR TAB 40 MG PO SCH (22:01)
[2019-03-23] MEDS: GLUCOTROL PO SCH (06:15)
[2019-03-23] MEDS: MAG-OX TAB PO SCH ×2 (06:15→17:39)
[2019-03-23] MEDS: SYNTHROID 75 mcg TAB PO SCH (06:15)
[2019-03-23] MEDS ORDERED: GLUCOPHAGE ONE ×2 (08:47→20:08)
[2019-03-23] MEDS: NORVASC TAB 5 MG PO SCH (08:49)
[2019-03-23] MEDS: ASPIRIN 81 MG CHEWTAB PO SCH (08:49)
[2019-03-23] MEDS: ZOLOFT PO SCH (08:49)
[2019-03-23] MEDS: ZANTAC PO SCH ×2 (08:50→21:25)
[2019-03-23] MEDS: COLACE CAP 100 MG PO SCH (08:50)
[2019-03-23] MEDS: TOPROL XL PO SCH (08:50)
[2019-03-23] MEDS: ELIQUIS PO SCH ×2 (08:51→21:06)
[2019-03-23] MEDS: GLUCOPHAGE PO SCH ×2 (08:51→21:05)
[2019-03-23] MEDS: ANTIVERT TAB 25 MG PO SCH ×2 (08:51→21:07)
--- NOTE | 2019-03-23 20:02 | PCM.PROG ---
Progress Note - Progress Note for Day of Date of Exam: 03/17/19 - Subjective Subjective: WAS ADMITTED TO [facility] FOLLOWING A CVA. HE HAS MARKED APHASIA AND REPORTS MILD WEAKNESS. HE HAS BEEN AMBULATING THE HALLS WELL WITH ASSISTANCE. SPOUSE REPORTS THAT HE HAS BEEN EMOTIONAL. ON EXAMINATION, HEART IS REGULAR IN RATE AND RHYTHM. BILATERAL LUNGS ARE NOTED WITH DIMINISHED LUNG SOUNDS THROUGHOUT. ABDOMEN IS ROUND, SOFT, AND NON-TENDER WITH NORMAL BOWEL SOUNDS NOTED IN ALL QUADRANTS. HIS VITALS THIS MORNING ARE 98.3-83-18-96%-149/77. LABS WERE OBTAINED. ABNORMAL LAB VALUES INCLUDE THE FOLLOWING: RBC 4.19, HGB 12.2, HCT 35.9, GLUCOSE 151, AST 12, ALBUMIN 2.8. HE IS PARTICIPATING WELL WITH SPEECH AND PHYSICAL THERAPY. WE WILL CONTINUE WITH CURRENT PLAN OF CARE AND CURRENT MEDICATIONS TODAY. WE WILL CONTINUE TO MONITOR. - Past Medical Family Social History Past Med/Fam/Surg Hx: No changes since H&P Allergies: Allergies No Known Drug Allergies [NKDA] Allergy (Verified 03/06/19 07:52) - Review of Systems ROS: No change since H&P - Vital Signs and I&O's Vital Signs: Temperature 97.9 F Pulse Rate [Left Brachial] 81 Respiratory Rate 19 Blood Pressure [Left Arm] 145/70 Blood Pressure [Right Arm] 191/86 Blood Pressure 163/77 O2 Sat by Pulse Oximetry 96 Intake and Output: Intake & Output 03/21/19 03/22/19 03/23/19 03/24/19 11:59 11:59 11:59 11:59 Intake Total 1120 / 1120 2090 / 2090 2180 / 2180 1200 / 1200 Balance 1120 / 1120 2089 / 0 2180 / 2180 1200 / 1200 - Physical Exam Oriented: Normal Eyes: Normal Ear: Normal Nose: Normal Throat: Normal Respiratory: Diminished Cardiovascular: Normal : Normal Auscultation: Bowel Sounds: Normal Palpation: Normal Tenderness: Normal Skin: Normal Musculoskeletal: Normal Psychiatric: Normal Mood Description: Calm Affect: Normal Speech Pattern: Appropriate, Delayed - Laboratory and Diagnostics Result Diagrams: 03/22/19 05:12 03/22/19 05:12 Labs: Laboratory WBC 8.8 X10^3/uL (3.6-10.0) 03/22/19 05:12 RBC 4.15 X10^6/uL (4.7-6.0) L 03/22/19 05:12 Hgb 12.2 g/dL (13.5-18.0) L 03/22/19 05:12 Hct 35.2 % (42.0-54.0) L 03/22/19 05:12 MCV 84.8 fL (80.0-100.0) 03/22/19 05:12 MCH 29.4 pg (27.0-34.0) 03/22/19 05:12 MCHC 34.7 g/dL (33.0-35.0) 03/22/19 05:12 RDW 12.7 % (11.6-16.5) 03/22/19 05:12 Plt Count 340 X10^3/uL (150.0-450.0) 03/22/19 05:12 MPV 7.6 fL (7.4-11.0) 03/22/19 05:12 Neut % (Auto) 65.4 % (42.0-75.0) 03/22/19 05:12 Lymph % (Auto) 21.1 % (21.0-51.0) 03/22/19 05:12 Williams % (Auto) 10.4 % (0.0-13.0) 03/22/19 05:12 Eos % (Auto) 2.1 % (0.9-2.9) 03/22/19 05:12 Baso % (Auto) 1.0 % (0.2-1.0) 03/22/19 05:12 Neut # (Auto) 5.8 x10^3/uL (2.2-4.8) H 03/22/19 05:12 Lymph # (Auto) 1.9 X10^3/uL (1.3-2.9) 03/22/19 05:12 Williams # (Auto) 0.9 x10^3/uL (0.3-0.8) H 03/22/19 05:12 Eos # (Auto) 0.2 x10^3/uL (0.0-0.2) 03/22/19 05:12 Baso # (Auto) 0.1 X10^3/uL (0.0-0.1) 03/22/19 05:12 Absolute Nucleated RBC 0.0 /100WBC 03/22/19 05:12 Sodium 139 mmol/L (136-145) 03/22/19 05:12 Corrected Sodium 140 mmol/L (136-145) 03/22/19 05:12 Potassium 3.7 mmol/L (3.5-5.1) 03/22/19 05:12 Chloride 102 mmol/L (98-107) 03/22/19 05:12 Carbon Dioxide 25.2 mmol/L (21-32) 03/22/19 05:12 BUN 12 mg/dL (7-18) 03/22/19 05:12 Creatinine 0.82 mg/dL (0.70-1.30) 03/22/19 05:12 Est GFR (MDRD) Af Amer > 60 (>60) 03/22/19 05:12 Est GFR (MDRD) Non-Af > 60 (>60) 03/22/19 05:12 Glucose 124 mg/dL (65-99) H 03/22/19 05:12 Calcium 8.9 mg/dL (8.5-10.1) 03/22/19 05:12 Corrected Calcium 9.8 mg/dL (8.5-10.1) 03/22/19 05:12 Magnesium 1.6 mg/dL (1.7-2.9) L 03/22/19 05:12 Total Bilirubin 0.30 mg/dL (0.2-1.0) 03/22/19 05:12 AST 19 Units/L (15-37) 03/22/19 05:12 ALT 20 Units/L (12-78) 03/22/19 05:12 Alkaline Phosphatase 61 Units/L (46-116) 03/22/19 05:12 Total Protein 7.1 g/dL (6.4-8.2) 03/22/19 05:12 Albumin 2.9 g/dL (3.4-5.0) L 03/22/19 05:12 Globulin 4.2 g/dL (2.5-4.5) 03/22/19 05:12 Albumin/Globulin Ratio 0.7 Ratio (1.1-2.1) L 03/22/19 05:12 - Plan (1) CVA (cerebral vascular accident) Status: Acute Qualifiers: CVA mechanism: unspecified Qualified Code(s): I63.9 - Cerebral infarction, unspecified Plan: Speech and physical therapy, (2) Aphasia following cerebrovascular accident (CVA) Status: Acute Plan: Speech therapy (3) Generalized weakness Status: Acute
--- NOTE | 2019-03-23 20:06 | PCM.PROG ---
Progress Note - Progress Note for Day of Date of Exam: 03/19/19 - Subjective Subjective: WAS ADMITTED TO [facility] FOLLOWING A CVA. HE CONTINUES WITH DELAYED SPEECH, HOWEVER, SYMPTOMS HAVE IMPROVED SINCE WE VISITED WITH HIM LAST. THERAPY REPORTS THAT HE HAS BEEN AMBULATING THE HALLS WELL WITH ASSISTANCE. ON EXAMINATION, HEART IS REGULAR IN RATE AND RHYTHM. BILATERAL LUNGS ARE NOTED WITH DIMINISHED LUNG SOUNDS THROUGHOUT. ABDOMEN IS ROUND, SOFT, AND NON-TENDER WITH NORMAL BOWEL SOUNDS NOTED IN ALL QUADRANTS. HIS VITALS THIS MORNING ARE 98.0-9-20-95%-123/60. LABS WERE OBTAINED. ABNORMAL LAB VALUES INCLUDE THE FOLLOWING: WBC 10.7, RBC 3.97, HGB 11.6, HCT 34.2, GLUCOSE 151, AST 12, ALBUMIN 2.8. HE IS PARTICIPATING WELL WITH SPEECH AND PHYSICAL THERAPY. WE WILL CONTINUE WITH CURRENT PLAN OF CARE AND CURRENT MEDICATIONS TODAY. WE WILL CONTINUE TO MONITOR. - Past Medical Family Social History Past Med/Fam/Surg Hx: No changes since H&P Allergies: Allergies No Known Drug Allergies [NKDA] Allergy (Verified 03/06/19 07:52) - Review of Systems ROS: No change since H&P - Vital Signs and I&O's Vital Signs: Temperature 97.9 F Pulse Rate [Left Brachial] 81 Respiratory Rate 19 Blood Pressure [Left Arm] 145/70 Blood Pressure [Right Arm] 191/86 Blood Pressure 163/77 O2 Sat by Pulse Oximetry 96 Intake and Output: Intake & Output 03/21/19 03/22/19 03/23/19 03/24/19 11:59 11:59 11:59 11:59 Intake Total 1120 / 1120 2089 / 0 2180 / 2180 1200 / 1200 Balance 1120 / 1120 2089 / 2089 2180 / 2180 1200 / 1200 - Physical Exam Oriented: Normal Eyes: Normal Ear: Normal Nose: Normal Throat: Normal Respiratory: Diminished Cardiovascular: Normal : Normal Auscultation: Bowel Sounds: Normal Palpation: Normal Tenderness: Normal Skin: Normal Musculoskeletal: Normal Psychiatric: Normal Mood Description: Calm Affect: Normal Speech Pattern: Appropriate, Delayed - Laboratory and Diagnostics Result Diagrams: 03/22/19 05:12 03/22/19 05:12 Labs: Laboratory WBC 8.8 X10^3/uL (3.6-10.0) 03/22/19 05:12 RBC 4.15 X10^6/uL (4.7-6.0) L 03/22/19 05:12 Hgb 12.2 g/dL (13.5-18.0) L 03/22/19 05:12 Hct 35.2 % (42.0-54.0) L 03/22/19 05:12 MCV 84.8 fL (80.0-100.0) 03/22/19 05:12 MCH 29.4 pg (27.0-34.0) 03/22/19 05:12 MCHC 34.7 g/dL (33.0-35.0) 03/22/19 05:12 RDW 12.7 % (11.6-16.5) 03/22/19 05:12 Plt Count 340 X10^3/uL (150.0-450.0) 03/22/19 05:12 MPV 7.6 fL (7.4-11.0) 03/22/19 05:12 Neut % (Auto) 65.4 % (42.0-75.0) 03/22/19 05:12 Lymph % (Auto) 21.1 % (21.0-51.0) 03/22/19 05:12 Garden % (Auto) 10.4 % (0.0-13.0) 03/22/19 05:12 Eos % (Auto) 2.1 % (0.9-2.9) 03/22/19 05:12 Baso % (Auto) 1.0 % (0.2-1.0) 03/22/19 05:12 Neut # (Auto) 5.8 x10^3/uL (2.2-4.8) H 03/22/19 05:12 Lymph # (Auto) 1.9 X10^3/uL (1.3-2.9) 03/22/19 05:12 Garden # (Auto) 0.9 x10^3/uL (0.3-0.8) H 03/22/19 05:12 Eos # (Auto) 0.2 x10^3/uL (0.0-0.2) 03/22/19 05:12 Baso # (Auto) 0.1 X10^3/uL (0.0-0.1) 03/22/19 05:12 Absolute Nucleated RBC 0.0 /100WBC 03/22/19 05:12 Sodium 139 mmol/L (136-145) 03/22/19 05:12 Corrected Sodium 140 mmol/L (136-145) 03/22/19 05:12 Potassium 3.7 mmol/L (3.5-5.1) 03/22/19 05:12 Chloride 102 mmol/L (98-107) 03/22/19 05:12 Carbon Dioxide 25.2 mmol/L (21-32) 03/22/19 05:12 BUN 12 mg/dL (7-18) 03/22/19 05:12 Creatinine 0.82 mg/dL (0.70-1.30) 03/22/19 05:12 Est GFR (MDRD) Af Amer > 60 (>60) 03/22/19 05:12 Est GFR (MDRD) Non-Af > 60 (>60) 03/22/19 05:12 Glucose 124 mg/dL (65-99) H 03/22/19 05:12 Calcium 8.9 mg/dL (8.5-10.1) 03/22/19 05:12 Corrected Calcium 9.8 mg/dL (8.5-10.1) 03/22/19 05:12 Magnesium 1.6 mg/dL (1.7-2.9) L 03/22/19 05:12 Total Bilirubin 0.30 mg/dL (0.2-1.0) 03/22/19 05:12 AST 19 Units/L (15-37) 03/22/19 05:12 ALT 20 Units/L (12-78) 03/22/19 05:12 Alkaline Phosphatase 61 Units/L (46-116) 03/22/19 05:12 Total Protein 7.1 g/dL (6.4-8.2) 03/22/19 05:12 Albumin 2.9 g/dL (3.4-5.0) L 03/22/19 05:12 Globulin 4.2 g/dL (2.5-4.5) 03/22/19 05:12 Albumin/Globulin Ratio 0.7 Ratio (1.1-2.1) L 03/22/19 05:12 - Plan (1) CVA (cerebral vascular accident) Status: Acute Qualifiers: CVA mechanism: unspecified Qualified Code(s): I63.9 - Cerebral infarction, unspecified Plan: Speech and physical therapy, (2) Aphasia following cerebrovascular accident (CVA) Status: Acute Plan: Speech therapy (3) Generalized weakness Status: Acute
--- NOTE | 2019-03-23 20:11 | PCM.PROG ---
Progress Note - Progress Note for Day of Date of Exam: 03/22/19 - Subjective Subjective: WAS ADMITTED TO [facility] FOLLOWING A CVA. HIS SPEECH IS SLOWLY BEGINNING TO IMPROVE. THERAPY REPORTS THAT HE HAS BEEN AMBULATING WELL WITH ASSISTANCE. ON EXAMINATION, HEART IS REGULAR IN RATE AND RHYTHM. BILATERAL LUNGS ARE NOTED WITH DIMINISHED LUNG SOUNDS THROUGHOUT. ABDOMEN IS ROUND, SOFT, AND NON-TENDER WITH NORMAL BOWEL SOUNDS NOTED IN ALL QUADRANTS. HIS VITALS THIS MORNING ARE 98.7-83-20-95%-139/75. LABS WERE OBTAINED. ABNORMAL LAB VALUES INCLUDE THE FOLLOWING: RBC 4.15, HGB 12.2, HCT 35.2, GLUCOSE 124, MAGNESIUM 1.6, ALBUMIN 2.9. HE IS PARTICIPATING WELL WITH SPEECH AND PHYSICAL THERAPY. WE WILL CONTINUE WITH CURRENT PLAN OF CARE AND CURRENT MEDICATIONS TODAY. WE WILL CONTINUE TO MONITOR. - Past Medical Family Social History Past Med/Fam/Surg Hx: No changes since H&P Allergies: Allergies No Known Drug Allergies [NKDA] Allergy (Verified 03/06/19 07:52) - Review of Systems ROS: No change since H&P - Vital Signs and I&O's Vital Signs: Temperature 97.9 F Pulse Rate [Left Brachial] 81 Respiratory Rate 19 Blood Pressure [Left Arm] 145/70 Blood Pressure [Right Arm] 191/86 Blood Pressure 163/77 O2 Sat by Pulse Oximetry 96 Intake and Output: Intake & Output 03/21/19 03/22/19 03/23/19 03/24/19 11:59 11:59 11:59 11:59 Intake Total 1120 / 1120 2089 / 0 2180 / 2180 1200 / 1200 Balance 1120 / 1120 2089 / 0 2180 / 2180 1200 / 1200 - Physical Exam Oriented: Normal Eyes: Normal Ear: Normal Nose: Normal Throat: Normal Respiratory: Diminished Cardiovascular: Normal : Normal Auscultation: Bowel Sounds: Normal Palpation: Normal Tenderness: Normal Skin: Normal Musculoskeletal: Normal Psychiatric: Normal Mood Description: Calm Affect: Normal Speech Pattern: Appropriate, Delayed - Laboratory and Diagnostics Result Diagrams: 03/22/19 05:12 03/22/19 05:12 Labs: Laboratory WBC 8.8 X10^3/uL (3.6-10.0) 03/22/19 05:12 RBC 4.15 X10^6/uL (4.7-6.0) L 03/22/19 05:12 Hgb 12.2 g/dL (13.5-18.0) L 03/22/19 05:12 Hct 35.2 % (42.0-54.0) L 03/22/19 05:12 MCV 84.8 fL (80.0-100.0) 03/22/19 05:12 MCH 29.4 pg (27.0-34.0) 03/22/19 05:12 MCHC 34.7 g/dL (33.0-35.0) 03/22/19 05:12 RDW 12.7 % (11.6-16.5) 03/22/19 05:12 Plt Count 340 X10^3/uL (150.0-450.0) 03/22/19 05:12 MPV 7.6 fL (7.4-11.0) 03/22/19 05:12 Neut % (Auto) 65.4 % (42.0-75.0) 03/22/19 05:12 Lymph % (Auto) 21.1 % (21.0-51.0) 03/22/19 05:12 Holt % (Auto) 10.4 % (0.0-13.0) 03/22/19 05:12 Eos % (Auto) 2.1 % (0.9-2.9) 03/22/19 05:12 Baso % (Auto) 1.0 % (0.2-1.0) 03/22/19 05:12 Neut # (Auto) 5.8 x10^3/uL (2.2-4.8) H 03/22/19 05:12 Lymph # (Auto) 1.9 X10^3/uL (1.3-2.9) 03/22/19 05:12 Holt # (Auto) 0.9 x10^3/uL (0.3-0.8) H 03/22/19 05:12 Eos # (Auto) 0.2 x10^3/uL (0.0-0.2) 03/22/19 05:12 Baso # (Auto) 0.1 X10^3/uL (0.0-0.1) 03/22/19 05:12 Absolute Nucleated RBC 0.0 /100WBC 03/22/19 05:12 Sodium 139 mmol/L (136-145) 03/22/19 05:12 Corrected Sodium 140 mmol/L (136-145) 03/22/19 05:12 Potassium 3.7 mmol/L (3.5-5.1) 03/22/19 05:12 Chloride 102 mmol/L (98-107) 03/22/19 05:12 Carbon Dioxide 25.2 mmol/L (21-32) 03/22/19 05:12 BUN 12 mg/dL (7-18) 03/22/19 05:12 Creatinine 0.82 mg/dL (0.70-1.30) 03/22/19 05:12 Est GFR (MDRD) Af Amer > 60 (>60) 03/22/19 05:12 Est GFR (MDRD) Non-Af > 60 (>60) 03/22/19 05:12 Glucose 124 mg/dL (65-99) H 03/22/19 05:12 Calcium 8.9 mg/dL (8.5-10.1) 03/22/19 05:12 Corrected Calcium 9.8 mg/dL (8.5-10.1) 03/22/19 05:12 Magnesium 1.6 mg/dL (1.7-2.9) L 03/22/19 05:12 Total Bilirubin 0.30 mg/dL (0.2-1.0) 03/22/19 05:12 AST 19 Units/L (15-37) 03/22/19 05:12 ALT 20 Units/L (12-78) 03/22/19 05:12 Alkaline Phosphatase 61 Units/L (46-116) 03/22/19 05:12 Total Protein 7.1 g/dL (6.4-8.2) 03/22/19 05:12 Albumin 2.9 g/dL (3.4-5.0) L 03/22/19 05:12 Globulin 4.2 g/dL (2.5-4.5) 03/22/19 05:12 Albumin/Globulin Ratio 0.7 Ratio (1.1-2.1) L 03/22/19 05:12 - Plan (1) CVA (cerebral vascular accident) Status: Acute Qualifiers: CVA mechanism: unspecified Qualified Code(s): I63.9 - Cerebral infarction, unspecified Plan: Speech and physical therapy, (2) Aphasia following cerebrovascular accident (CVA) Status: Acute Plan: Speech therapy (3) Generalized weakness Status: Acute
[2019-03-23] MEDS: LIPITOR TAB 40 MG PO SCH (21:25)
[2019-03-23] MEDS: HumuLIN R SUBCUT PRN (21:35)
[2019-03-24] MEDS: MAG-OX TAB PO SCH ×2 (06:18→17:10)
[2019-03-24] MEDS: SYNTHROID 75 mcg TAB PO SCH (06:18)
[2019-03-24] MEDS: GLUCOTROL PO SCH (06:18)
[2019-03-24] MEDS ORDERED: GLUCOPHAGE ONE ×2 (08:47→19:36)
[2019-03-24] MEDS: ASPIRIN 81 MG CHEWTAB PO SCH (09:49)
[2019-03-24] MEDS: COLACE CAP 100 MG PO SCH (09:49)
[2019-03-24] MEDS: TOPROL XL PO SCH (09:50)
[2019-03-24] MEDS: ELIQUIS PO SCH ×2 (09:50→21:11)
[2019-03-24] MEDS: GLUCOPHAGE PO SCH ×2 (09:51→21:11)
[2019-03-24] MEDS: ZANTAC PO SCH ×2 (09:51→21:11)
[2019-03-24] MEDS: ANTIVERT TAB 25 MG PO SCH ×2 (09:51→21:11)
[2019-03-24] MEDS: NORVASC TAB 5 MG PO SCH (09:51)
[2019-03-24] MEDS: ZOLOFT PO SCH (09:51)
[2019-03-24] MEDS: HumuLIN R SUBCUT PRN (21:09)
[2019-03-24] MEDS: LIPITOR TAB 40 MG PO SCH (21:11)
[2019-03-25] MEDS: SYNTHROID 75 mcg TAB PO SCH (06:33)
[2019-03-25] MEDS: MAG-OX TAB PO SCH (06:33)
[2019-03-25] MEDS: GLUCOTROL PO SCH (06:33)
[2019-03-25 06:48] LABS: BASOPHILS # (AUTO) 0.1 X10^3/uL (0.0-0.1); BASOPHILS % (AUTO) 0.9 % (0.2-1.0); EOSINOPHILS # (AUTO) 0.2 x10^3/uL (0.0-0.2); EOSINOPHILS % (AUTO) 2.9 % (0.9-2.9); HEMATOCRIT 35.3 % (42.0-54.0); HEMOGLOBIN 12.2 g/dL (13.5-18.0); LYMPHOCYTES # (AUTO) 1.8 X10^3/uL (1.3-2.9); LYMPHOCYTES % (AUTO) 24.6 % (21.0-51.0); MEAN CORPUSCULAR HEMOGLOBIN 29.1 pg (27.0-34.0); MEAN CORPUSCULAR HGB CONC 34.5 g/dL (33.0-35.0); MEAN CORPUSCULAR VOLUME 84.5 fL (80.0-100.0); MEAN PLATELET VOLUME 6.8 fL (7.4-11.0); MONOCYTES # (AUTO) 0.7 x10^3/uL (0.3-0.8); MONOCYTES % (AUTO) 9.8 % (0.0-13.0); NEUTROPHILS # (AUTO) 4.5 x10^3/uL (2.2-4.8); NEUTROPHILS % (AUTO) 61.8 % (42.0-75.0); PLATELET COUNT 351 X10^3/uL (150.0-450.0); RED BLOOD COUNT 4.17 X10^6/uL (4.7-6.0); RED CELL DISTRIBUTION WIDTH 12.5 % (11.6-16.5); WHITE BLOOD COUNT 7.3 X10^3/uL (3.6-10.0)
[2019-03-25 06:52] LABS: ALANINE AMINOTRANSFERASE 22 Units/L (12-78); ALBUMIN 3.1 g/dL (3.4-5.0); ALKALINE PHOSPHATASE 65 Units/L (46-116); ASPARTATE AMINO TRANSFERASE 20 Units/L (15-37); BLOOD UREA NITROGEN 14 mg/dL (7-18); CALCIUM 8.9 mg/dL (8.5-10.1); CARBON DIOXIDE 27.2 mmol/L (21-32); CHLORIDE 101 mmol/L (98-107); COR CA(FOR HYPOALB) 9.6 mg/dL (8.5-10.1); COR NA(FOR HYPERGLY) 139 mmol/L (136-145); CREATININE 0.87 mg/dL (0.70-1.30); MAGNESIUM 1.5 mg/dL (1.7-2.9); SODIUM 139 mmol/L (136-145); TOTAL PROTEIN 7.4 g/dL (6.4-8.2); eGFR NON BLACK RACES > 60 (>60)
[2019-03-25] MEDS ORDERED: GLUCOPHAGE ONE (09:30)
[2019-03-25] MEDS: COLACE CAP 100 MG PO SCH (09:38)
[2019-03-25] MEDS: TOPROL XL PO SCH (09:38)
[2019-03-25] MEDS: ZOLOFT PO SCH (09:38)
[2019-03-25] MEDS: NORVASC TAB 5 MG PO SCH (09:38)
[2019-03-25] MEDS: ASPIRIN 81 MG CHEWTAB PO SCH (09:38)
[2019-03-25] MEDS: ELIQUIS PO SCH (09:38)
[2019-03-25] MEDS: ZANTAC PO SCH (09:39)
[2019-03-25] MEDS: ANTIVERT TAB 25 MG PO SCH (09:39)
[2019-03-25] MEDS: GLUCOPHAGE PO SCH (09:39)
[2019-03-25 11:10] VITALS: BP 148/74
== END 2019-03-25 13:15 | disposition home or self-care (01) | DRG 949 ==
LOC: MED/SURG 17:35
PROVIDERS: ADMIT Internal Medicine; ATTEND Internal Medicine
DX: E78.2 Mixed hyperlipidemia; I69.320 Aphasia following cerebral infarction; I48.91 Unspecified atrial fibrillation; E11.65 Type 2 diabetes mellitus with hyperglycemia; I63.9 Cerebral infarction, unspecified; Z51.89 Encounter for other specified aftercare; I10 Essential (primary) hypertension; R53.1 Weakness; E03.8 Other specified hypothyroidism
CPT/HCPCS: 36415; 73030; 80053; 83735; 84132; 85025; 92507; 92523; 92610; 97110; 97112; 97116; 97162; 97167; 97530; 97535; J1650; J1815

== ENCOUNTER 2019-11-21 21:05 | Inpatient (IN) ==
--- NOTE | 2019-11-21 21:28 | DR.AMS ---
HPI - Time Seen Time seen: 21:28 - Complaint Cheif Complaint Doctors Comments: EMS states they were called because of possible stroke but when they got there they thought he may have had a seizure. States the patient had slurred speeck and would followu simmple commands. He is a patient of Dr. Garcia. States his blood pressure was 157/80 and his temp was 100.7 with [id number]. States he had a stroke February 2019 and has had right sided weakness since. Family states he has had unsteady gait since the stroke. He denies tobacco or alchol usage. He denies cold or cough. states he was shaking all over and his eyes rolled in back of his head and she thought he was having a seizure or a stroke. He has never had a seizure before. - Reviewed Nurses Notes Reviewed: Yes - Source History Provided: Patient, EMS - Mode of Arrival Mode of Arrival: In Arms - Timing Came On: Suddenly Symptoms: Improving Symptom Onset: Unknown - Duration Duration: Constant How lon Duration: Hours - Quality Quality: Decreased Alertness, Change in Behavior - Severity Severity: Mild - Context Recent: Fever, Cough History Of: Diabetes - Associated Signs and Symptoms Associated Signs and Symptoms: Right Sided Weakness, Slurred Speech, Confusion PMH - PMH Past Medical History: Angina, CVA, Diabetes, Dyslipidemia, Hypothyroidism Past Surgical History: Yes Surgical History: CABG/Valve Surgery, Carotid Endarterectomy, Ortho Surgery, Other - Family History Family Medical History: Cancer, [place] - Social History Do you use any recreational Drugs:: No ROS - Review of Systems Constitutional: No Symptoms Reported Eyes: No Symptoms Reported ENTM: No Symptoms Reported Respiratoy: No Symptoms Reported Cardiovascular: No Symptoms Reported. negative: See HPI, Chest Pain, Edema, Palpitations, Syncope, Cyanosis, Skin Mottling, Other Gastrointestinal/Abdominal: No Symptoms Reported Genitourinary: No Symptoms Reported Neurological: No Symptoms Reported Musculoskeletal: No Symptoms Reported Integumentary: No Symptoms Reported. negative: See HPI, Change in Color, Change in Hair/Nails, Dryness, Lesions, Lumps, Rash, Itching, Wound, Bruises, Juandice, Other Hematologic/Lymphatic: No Symptoms Reported. negative: See HPI, Anemia, Blood Clots, Easy Bleeding, Easy Bruising, Swollen Glands, Lymphadenopathy, Other Endocrine: No Symptoms Reported Psychiatric: No Symptoms Reported. negative: See HPI, Anxiety, Depression, Hallucinations, Excessive crying, Suicidal, Other PE - General Limitations: No Limitations General Appearance: Alert, In No Apparent Distress - Head Head Exam: Normal Inspection, Atraumatic, Normocephalic Head Exam Physical: negative: Laceration, Abrasion, Contusion, Hematoma, Raccoon Eyes, Valladares's Sign, Tenderness of Temporal Artery, CSF Rhinorrhea, CSF Otorrhea, Other - Eyes Eye exam: Normal Appearance, PERRL, EOMI. negative: Scleral Icterus, Conjunctival Injection, Nystagmus, Miosis, Mydrasis, Periorbital Swelling, Periorbital Tenderness, Other Pupils: Regular, Round: Bilateral - ENT ENT Exam: Normal Exam, Normal Oropharynx, Normal External Ear Exam, Mucous Mem branes Moist, TM's Normal Bilaterally External Ear Exam: Normal External Inspection TM/Canal Exam: Bilateral Normal Nose Exam: Normal Nose Exam Mouth Exam: Normal Inspection. negative: Drooling, Trismus, Lip Swelling, Tongue Elevation, Tongue Swelling, Laceration, Other Throat Exam: Normal Inspection - Neck Neck Exam: Normal Inspection, Full ROM, Trachea Midline. negative: Tenderness, Meningismus, Lymphadenopathy, Thyromegaly, Other - Chest Chest Inspection: Normal Inspection, Symmetric Chest Wall Rise. negative: Tenderness, Rash, Abscess, Other - Respiratory Respiratory Exam: Normal Lung Sounds Bilat Respiratory Exam: Bilateral Clear to Auscultation - Cardiovascular Cardiovascular Exam: Regular Rate, Normal Rhythm, Normal Heart Sounds, Systolic Murmur - Abdominal Exam Abdominal Exam: Normal Inspection, Normal Bowel Sounds, Soft. negative: Distention, Tenderness, Guarding, Rebound, Rigidity, Dimnished Bowel Sounds, Hyperactive Bowel Sounds, Hypoactive Bowel Sounds, Organomegaly, Trauma, Incision, Ascites, Mass, Bruit, Pulsatile Mass, Hernia, Other Abdominal Tenderness: negative: RUQ, RLQ, LUQ, LLQ, Epigastrium, Suprapubic, Diffuse, Mild, Moderate, Severe, Other - Extremities Extremities Exam: Normal Inspection, Full ROM, Normal Capillary Refill. negative: Tenderness, Edema, Joint Swelling, Calf Tenderness, Other - Back Back Exam: Normal Inspection, Full ROM. negative: Tenderness, (R) CVA Tenderness, (L) CVA Tenderness, Muscle Spasm, Paraspinal Tenderness, Vertebral Tenderness, Rashes, (R) Sciatic Notch Tenderness, (L) Sciatic Notch Tendern, (R) Straight Leg Raise, (L) Straight Leg Raise, Other - Neurological Neurological Exam: Alert, Oriented X3, CN II-XII Intact, Reflexes Normal. negative: Normal Gait (gait not tested) Patient Oriented To: Person Speech: Fluid Speech Cranial Nerve Exam: EOM Function (II, III, IV, ): Normal, Facial Sensation (V): Normal, Facial Palsy (VII): Normal, Gag reflex (XI): Normal, Tongue Deviation: Normal Motor Strength - LUE: 5/5 Motor Strength - RUE: 4/5 Motor Strength - LLE: 5/5 Motor Strength - RLE: 3/5 Upper Motor Neuron Exam: Babinski Sign: Normal Sensory Exam Upper Extremity: Light Touch: Normal - Psychological Psychiatric Exam: Normal Affect, Normal Mood Expanded Psychiatric Exam: negative: Poor Eye Contact, Pressured Speech, Echolalia, Psychomotor Agitation, Delusional, Paranoid, Catatonic, Mute, Perseverating, Euphoric, Restlessness, Flight of Ideas, Loose Associations, Uncooperative, Refuses to Answer, Auditory Hallucinations, Visual Hallucinations, Confabulating, Other - Skin Skin Exam: Warm, Dry, Intact, Normal Color. negative: Rash, Cyanosis, Diaphoresis, Erythema, Pallor, Mottled, Other - Vitals Vital Signs: Temp Pulse Resp BP BP BP Pulse Ox 11/21/19 21:20 97.9 F 109 H 19 131/66 96 03/25/19 07:00 148/74 148/74 06/26/18 18:34 191/86 Course - Reevaluation 1st: Improved - Consultation Called: 00:11 Call Returned: 00:11 (Dr. Herrera to admit) - Education/Counseling Education/Counseling: Patient, Family Educated On: Treatment, Diagnosis, Needs for Follow Up ROR - Labs Reviewed Laboratory Results Reviewed?: Yes (All labs and x-ray results reviewed and discussed with patient.) Result Diagrams: 11/21/19 21:30 11/21/19 21:30 - XRAY XRAY Interpreted by: Radiologist (CTA: No evidence of PE of the main pulmonary artery to proximal segmental arteries. Nodules seen bilaterally possible co- existing infection with COVVID-19 pneumonia), Both (CXR: No focal consolidation is seen.) - EKG Rate: 106 Alba: Normal Rhythm: NSR Block: None Hypertrophy: LVH ST: Old, Inf, Infarct - Labs Reviewed Laboratory: WBC 10.9 X10^3/uL (3.6-10.0) H 11/21/19 21:30 RBC 4.15 X10^6/uL (4.7-6.0) L 11/21/19 21:30 Hgb 11.7 g/dL (13.5-18.0) L 11/21/19 21:30 Hct 34.4 % (42.0-54.0) L 11/21/19 21:30 MCV 83.1 fL (80.0-100.0) 11/21/19 21:30 MCH 28.2 pg (27.0-34.0) 11/21/19 21: MCHC 33.9 g/dL (33.0-35.0) 11/21/19 21: RDW 14.2 % (11.6-16.5) 11/21/19 21:30 Plt Count 307 X10^3/uL (150.0-450.0) 11/21/19 21:30 MPV 7.2 fL (7.4-11.0) L 11/21/19 21:30 Neut % (Auto) 75.7 % (42.0-75.0) H 11/21/19 21:30 Lymph % (Auto) 13.8 % (21.0-51.0) L 11/21/19 21:30 Clare % (Auto) 8.5 % (0.0-13.0) 11/21/19 21:30 Eos % (Auto) 1.1 % (0.9-2.9) 11/21/19 21:30 Baso % (Auto) 0.9 % (0.2-1.0) 11/21/19 21:30 Neut # (Auto) 8.3 x10^3/uL (2.2-4.8) H 11/21/19 21:30 Lymph # (Auto) 1.5 X10^3/uL (1.3-2.9) 11/21/19 21:30 Clare # (Auto) 0.9 x10^3/uL (0.3-0.8) H 11/21/19 21:30 Eos # (Auto) 0.1 x10^3/uL (0.0-0.2) 11/21/19 21:30 Baso # (Auto) 0.1 X10^3/uL (0.0-0.1) 11/21/19 21:30 Absolute Nucleated RBC 0.0 /100WBC 11/21/19 21:30 PT 15.2 SECONDS (11.8-14.3) 11/21/19 21:30 INR Target Range - 11/21/19 21:30 INR 1.23 (0.8-1.3) 11/21/19 21:30 APTT 43.5 SECONDS (22.9-36.5) H 11/21/19 21:30 PTT Comment - 11/21/19 21:30 D-Dimer 611 ng/mL (0-400) H* 11/21/19 21:30 Sodium 133 mmol/L (136-145) L 11/21/19 21:30 Corrected Sodium 135 mmol/L (136-145) L 11/21/19 21:30 Potassium 3.6 mmol/L (3.5-5.1) 11/21/19 21:30 Chloride 95 mmol/L (98-107) L 11/21/19 21:30 Carbon Dioxide 26.1 mmol/L (21-32) 11/21/19 21:30 BUN 29 mg/dL (7-18) H 11/21/19 21:30 Creatinine 1.27 mg/dL (0.70-1.30) 11/21/19 21:30 Est GFR (MDRD) Af Amer > 60 (>60) 11/21/19 21:30 Est GFR (MDRD) Non-Af 59 (>60) 11/21/19 21:30 Glucose 201 mg/dL (65-99) H 11/21/19 21:30 Calcium 9.8 mg/dL (8.5-10.1) 11/21/19 21:30 Corrected Calcium TNP 11/21/19 21:30 Magnesium 1.1 mg/dL (1.7-2.9) L 11/21/19 21:30 Total Bilirubin 0.30 mg/dL (0.2-1.0) 11/21/19 21:30 AST 18 Units/L (15-37) 11/21/19 21:30 ALT 18 Units/L (12-78) 11/21/19 21:30 Alkaline Phosphatase 39 Units/L (46-116) L 11/21/19 21:30 Creatine Kinase 21 Units/L (39-308) L 11/21/19 21:30 CK-MB (CK-2) < 1.0 ng/mL (0-4.0) 11/21/19 21:30 CK/CKMB % Calc 4.8 % (<4) 11/21/19 21:30 Troponin I < 0.02 ng/mL (0-1.5) 11/21/19 21:30 Total Protein 7.7 g/dL (6.4-8.2) 11/21/19 21: Albumin 3.4 g/dL (3.4-5.0) 11/21/19 21: Globulin 4.3 g/dL (2.5-4.5) 11/21/19 21:30 Albumin/Globulin Ratio 0.8 Ratio (1.1-2.1) L 11/21/19 21:30 Urine Opiates Screen Negative (NEG=<300) 11/21/19 20:20 Urine Methadone Screen Negative (NEG=<300) 11/21/19 20:20 Ur Barbiturates Screen Negative (NEG=<200) 11/21/19 20:20 Ur Phencyclidine Scrn Negative (NEG=<25) 11/21/19 20:20 Ur Amphetamines Screen Negative (NEG=<1000) 11/21/19 20:20 U Benzodiazepines Scrn Negative (NEG=<200) 11/21/19 20:20 Urine Cocaine Screen Negative (NEG=<300) 11/21/19 20:20 U Marijuana (THC) Screen Negative (NEG=<50) 11/21/19 20:20 - XRAY Xray Findings: CT head: Age-appropriate generalized cerebral atrophy with commensurate ventricular and sulcal enlargement. Lacunar infarct of the anterior limb of the right internal capsule and remote infarcts of he superior left frontal and posterior right paretal lobe again noted. Infarcts of the right occipital and left temporal occipital lobes also seen. No definite visible acute infarction is identifed. (ROHITH KAUFMAN) Opioid - Opioid Risk Tool Total: 0 Total Score Risk Category: Low Risk - Diagnosis Discharge Problem: Pulmonary infiltrates, Dehydration, Hypomagnesemia, Sinus tachycardia Altered mental status Qualifiers: Altered mental status type: transient alteration of awareness Qualified Code(s): R40.4 - Transient alteration of awareness Diabetes mellitus Qualifiers: Diabetes mellitus type: type 2 Diabetes mellitus complication status: with hyperglycemia CVA (cerebral vascular accident) Qualifiers: CVA mechanism: unspecified Qualified Code(s): I63.9 - Cerebral infarction, uns pecified - Discharge Plan Disposition: 09 ADMITTED INPATIENT Condition: Stable - Follow ups/Referrals Follow ups/Referrals: Miguel Garcia [Primary Care Provider] - 3 days - Instructions
[2019-11-21] MEDS ORDERED: NS 1000 ML 1,000 ML ONE (21:32)
--- NOTE | 2019-11-21 21:32 | CT ---
BRAIN W/O CONHistory: POSSIBLE STROKE, SEIZURETechnique: CT images of the brain were obtained without contrast. Reformatted images in the coronal and sagittal planes also generated for review. Automatic exposure was utilized.Comparison: 03/06/19Findings: There is age-appropriate generalized cerebral atrophy with commensurate ventricular and sulcal enlargement. Lacunar infarct of the anterior limb of the right internal capsule and remote infarcts of the superior left frontal and posterior right parietal lobe again noted and unchanged. Infarcts of the right occipital and left temporal occipital lobes also seen, which are new since prior exam but appear subacute-chronic in age. Remaining toribio-white differentiation is maintained. No definite visible acute infarction is identified. If clinical concern for acute ischemia remains high and would make a clinical difference to diagnose stroke now, consider MRI for further evaluation. There is no intracranial hemorrhage, extra-axial collection, hydrocephalus or mass. Visualized paranasal sinuses and mastoid air cells are clear. Imaged extracranial structures are grossly unremarkable.Impression:No acute intracranial abnormality.Age related atrophy and chronic ischemic changes as above.Electronically signed by: ROBIN VENTURA (Nov 21, 2019 21:31:15)
[2019-11-21 21:44] LABS: BASOPHILS # (AUTO) 0.1 X10^3/uL (0.0-0.1); BASOPHILS % (AUTO) 0.9 % (0.2-1.0); EOSINOPHILS # (AUTO) 0.1 x10^3/uL (0.0-0.2); EOSINOPHILS % (AUTO) 1.1 % (0.9-2.9); HEMATOCRIT 34.4 % (42.0-54.0); HEMOGLOBIN 11.7 g/dL (13.5-18.0); LYMPHOCYTES # (AUTO) 1.5 X10^3/uL (1.3-2.9); LYMPHOCYTES % (AUTO) 13.8 % (21.0-51.0); MEAN CORPUSCULAR HEMOGLOBIN 28.2 pg (27.0-34.0); MEAN CORPUSCULAR HGB CONC 33.9 g/dL (33.0-35.0); MEAN CORPUSCULAR VOLUME 83.1 fL (80.0-100.0); MEAN PLATELET VOLUME 7.2 fL (7.4-11.0); MONOCYTES # (AUTO) 0.9 x10^3/uL (0.3-0.8); MONOCYTES % (AUTO) 8.5 % (0.0-13.0); NEUTROPHILS # (AUTO) 8.3 x10^3/uL (2.2-4.8); NEUTROPHILS % (AUTO) 75.7 % (42.0-75.0); PLATELET COUNT 307 X10^3/uL (150.0-450.0); RED BLOOD COUNT 4.15 X10^6/uL (4.7-6.0); RED CELL DISTRIBUTION WIDTH 14.2 % (11.6-16.5); WHITE BLOOD COUNT 10.9 X10^3/uL (3.6-10.0)
--- NOTE | 2019-11-21 21:53 | RAD ---
STUDY: FRONTAL VIEW CHESTCOMPARISON: MARCH 06, 2019HISTORY: CHEST PAINFINDINGS:Status post midline sternotomyNo focal consolidation is seen.The heart size is within normal limits.The mediastinum is unremarkable.There is no evidence of pleural effusion or gross pneumothorax.The trachea is midline.IMPRESSION:1. No focal consolidation is seen.2. The heart size is normal.Electronically signed by: Yony Winters (Nov 21, 2019 21:52:25)
[2019-11-21] MEDS ORDERED: NS 1000 ML 1,000 ML IV SCH (22:00)
[2019-11-21 22:01] LABS: ALANINE AMINOTRANSFERASE 18 Units/L (12-78); ALBUMIN 3.4 g/dL (3.4-5.0); ALKALINE PHOSPHATASE 39 Units/L (46-116); ASPARTATE AMINO TRANSFERASE 18 Units/L (15-37); BLOOD UREA NITROGEN 29 mg/dL (7-18); CALCIUM 9.8 mg/dL (8.5-10.1); CARBON DIOXIDE 26.1 mmol/L (21-32); CHLORIDE 95 mmol/L (98-107); CKMB % 4.8 % (<4); COR NA(FOR HYPERGLY) 135 mmol/L (136-145); CREATINE KINASE 21 Units/L (39-308); CREATINE KINASE MB < 1.0 ng/mL (0-4.0); CREATININE 1.27 mg/dL (0.70-1.30); MAGNESIUM 1.1 mg/dL (1.7-2.9); SODIUM 133 mmol/L (136-145); TOTAL PROTEIN 7.7 g/dL (6.4-8.2); TROPONIN I < 0.02 ng/mL (0-1.5); eGFR NON BLACK RACES 59 (>60)
--- NOTE | 2019-11-21 23:33 | CT ---
STUDY: CTA CHEST WITH IV CONTRASTCOMPARISON: NoneTECHNIQUE: axial images were acquired of the chest with IV contrast for a CT angiogram. Coronal and sagittal images were provided. All images were reviewed in a variety of windows and levels. 3D 8 mm thick MIPS images were provided.RADIATION REDUCTION TECHNIQUE: Automated exposure control, Adjustment of the mA and/or kV according to patient size, or iterative reconstruction techniques were used. 8 mm thick axial MIPS images were provided.HISTORY: AMSFINDINGS:CHEST:THYROID GLANDS: The thyroid gland is unremarkable.HEART AND VESSELS: The heart size is within normal limits.There is no evidence of pericardial effusion. Thoracic aorta is normal size without evidence of an aneurysm or dissection.Main pulmonary artery size is within normal limits.Exam is limited due to bolus timing and motion. There is no evidence of a pulmonary embolism from the level of the main pulmonary artery to the proximal segmental arteries. Distal emboli beyond these points can not be accurately assessed on this examination.LYMPH NODES: There is no evidence of axillary, mediastinal, or hilar lymphadenopathy.AIRWAY: The trachea and mainstem bronchi are patent.No intraluminal lesions are seen.LUNGS: Scattered areas of air trapping is seen throughout the right and left lungs with dependent atelectatic changes in scar-like formation.. There is no evidence of consolidation, pleural effusion, or pneumothorax. There are nodules seen predominantly in the bilateral mid and lower lung zones in a tree-in-bud like pattern. This may represent an infectious process.ESOPHAGUS: The esophagus is grossly unremarkable.BONES: The visualized bones demonstrate degenerative changes. There are no concerning lytic or blastic lesions identified.UPPER ABDOMINAL STRUCTURES: The visualized upper abdominal structures are unremarkable.IMPRESSSION:1. Exam is limited due to bolus timing and motion. There is no evidence of a pulmonary embolism from the level of the main pulmonary artery to the proximal segmental arteries. Distal emboli beyond these points can not be accurately assessed on this examination.2. Nodules are seen in the bilateral mid and lower lung zones in a tree-in-bud like pattern suggesting an infectious process. The above CT imaging features are considered ATYPICAL for COVID-19 pneumonia. Alternative diagnosis should be considered or possible co-existing infection with COVID-19 pneumonia. Clinical correlation with laboratory viral testing may be obtained if clinically indicated. Reference: Juan et al. Radiology. 2020Electronically signed by: Yony Winters (Nov 21, 2019 23:31:58)
[2019-11-21] MEDS ORDERED: ROCEPHIN VIAL 1 GRAM 1 G in NS 100 ML IV + SPIKE MINIBAG* 100 ML IV ONE (23:44)
[2019-11-21] MEDS ORDERED: NS 100 ML IV 100 ML IV ONE (23:51)
[2019-11-21] MEDS ORDERED: ROCEPHIN VIAL 1 GRAM ONE (23:51)
[2019-11-21] MEDS ORDERED: MAGNESIUM SULFATE 1 GRAM/100 mL PREMIX 1 G/100 ML BAG IV ONE (23:59)
[2019-11-22 00:49] LABS: RSV AG DETECTION NEGATIVE (NEGATIVE)
[2019-11-22 01:06] LABS: STREP A BY PCR NOT DETECTED (NOT DETECT)
[2019-11-22] MEDS ORDERED: NS 1/2 1000 ML IV 1,000 ML IV ONE ×2 (01:18→23:20)
[2019-11-22] MEDS: NS 1/2 1000 ML IV 1,000 ML IV SCH ×3 (01:19→14:19)
[2019-11-22 03:24] VITALS: BMI 24.9
[2019-11-22] MEDS ORDERED: K-RIDER 10 MEQ/NS 100 ML 10 MEQ/100 ML BAG IV PRN (03:29)
[2019-11-22] MEDS ORDERED: MICRO K EXTEN CAP 10 MEQ PO PRN (03:29)
[2019-11-22] MEDS ORDERED: POTASSIUM CHL 40 MEQ/NS 0.45% 500 ML IV PRN (03:29)
[2019-11-22] MEDS ORDERED: POTASSIUM CHL 60 MEQ/NS 0.45% 500 ML IV PRN (03:29)
[2019-11-22] MEDS ORDERED: KLOR-CON PO PRN (03:29)
[2019-11-22] MEDS ORDERED: POTASSIUM CHLORIDE LIQ 20 MEQ UDC PO PRN (03:29)
[2019-11-22] MEDS ORDERED: MAGNESIUM SULFATE IV ONE (03:33)
[2019-11-22] MEDS: MAGNESIUM SULFATE 1 GRAM/100 mL PREMIX 1 GM/100 ML BAG IV PRN ×3 (03:36→06:01)
[2019-11-22 06:02] LABS: BASOPHILS % (AUTO) 0.5 % (0.2-1.0); EOSINOPHILS # (AUTO) 0.1 x10^3/uL (0.0-0.2); EOSINOPHILS % (AUTO) 1.2 % (0.9-2.9); HEMATOCRIT 31.3 % (42.0-54.0); HEMOGLOBIN 10.7 g/dL (13.5-18.0); LYMPHOCYTES # (AUTO) 1.5 X10^3/uL (1.3-2.9); LYMPHOCYTES % (AUTO) 18.9 % (21.0-51.0); MEAN CORPUSCULAR HEMOGLOBIN 28.1 pg (27.0-34.0); MEAN CORPUSCULAR HGB CONC 34.1 g/dL (33.0-35.0); MEAN CORPUSCULAR VOLUME 82.3 fL (80.0-100.0); MONOCYTES # (AUTO) 0.8 x10^3/uL (0.3-0.8); MONOCYTES % (AUTO) 9.9 % (0.0-13.0); NEUTROPHILS # (AUTO) 5.7 x10^3/uL (2.2-4.8); NEUTROPHILS % (AUTO) 69.5 % (42.0-75.0); PLATELET COUNT 290 X10^3/uL (150.0-450.0); RED CELL DISTRIBUTION WIDTH 14.2 % (11.6-16.5); WHITE BLOOD COUNT 8.2 X10^3/uL (3.6-10.0)
[2019-11-22 06:13] LABS: ALANINE AMINOTRANSFERASE 15 Units/L (12-78); ALBUMIN 2.9 g/dL (3.4-5.0); ALKALINE PHOSPHATASE 31 Units/L (46-116); ASPARTATE AMINO TRANSFERASE 15 Units/L (15-37); BLOOD UREA NITROGEN 24 mg/dL (7-18); CALCIUM 8.8 mg/dL (8.5-10.1); CARBON DIOXIDE 31.2 mmol/L (21-32); CHLORIDE 97 mmol/L (98-107); COR CA(FOR HYPOALB) 9.7 mg/dL (8.5-10.1); COR NA(FOR HYPERGLY) 136 mmol/L (136-145); CREATININE 1.05 mg/dL (0.70-1.30); SODIUM 134 mmol/L (136-145); TOTAL PROTEIN 6.8 g/dL (6.4-8.2); eGFR NON BLACK RACES > 60 (>60)
[2019-11-22] MEDS: K-DUR TAB 20 MEQ PO PRN ×2 (08:58→16:47)
[2019-11-22] MEDS ORDERED: ASCORBIC ACID INJ MULTI-DOSE VIAL IV SCH (09:00)
[2019-11-22] MEDS: ROCEPHIN VIAL 1 GRAM 1 G in NS 100 ML IV + SPIKE MINIBAG* 100 ML IV SCH ×2 (10:10)
[2019-11-22] MEDS: NS 100 ML IV 100 ML with ASCORBIC ACID INJ MULTI-DOSE VIAL 1,500 MG IV SCH ×2 (10:54)
--- NOTE | 2019-11-22 10:55 | DR.H&P ---
H&P History & Physical for Day of: H&P Date: 11/22/19 Chief Complaint Chief Complaint: AMS, seizure Allergies Allergies Allergy/AdvReac Type Severity Reaction Status Date / Time No Known Drug Allergies Allergy Verified 03/06/19 07:52 [NKDA] History of Present Illness History of Present Illness: Mr. Weinberg is a 73y/o male with a PMH of CABG, CAD s/p PCI, Atrial fibrillation, stroke , HTN, DM presented after having a seizure at home with associated confusion. Patient unable to provide details so hx was obtained via medical records, RN and communication with patient's . reports patient was sitting in a recliner and suddenly she noticed his eyes rolling back and jerking movements. He has no prior hx of seizures. EMS was called and patient was noted to have a temp of 100.7. ED work up included: RSV (-) Flu (-) Strep (-) D-dimer: [address]-head: subacute right occipital and left temporal infarcts noted along with old lacunar infarct. CXR (-) CT chest: b/l nodules in tree-in-bud appearance, atypical COVID pneumonia with possible co-infection. Patient was started on pneumonia protocol with rocephin and mag replacement. COVID test pending. Patient was placed on droplet precautions. From the ED evaluation, it seems like patient was back to his baseline. On exam, patient is awake, alert and oriented to self and city. He is unable to tell me why he came to the ED. He denies being sick in the past few days. Denies fall or trauma. Denies SOB, cough, fever or chills. Denies N/V/D or abdominal pain. Patient is currently on RA. Plan: MRI and echo ordered for Sunday, will continue Rocephin, add doxy. Add vit C. Follow up cultures and results. Resume home medications, advance diet as tolerated. Continue telemetry and continuous pulse ox. Past Medical History Past Medical History: Angina, CVA, Diabetes, Dyslipidemia and Hypothyroidism Additional Medical History: aphasia Past Surgical History Surgical History: CABG/Valve Surgery, Carotid Endarterectomy and Ortho Surgery Family History Family Medical History: Cancer and [place] Social History Does patient currently use any type of tobacco product: No Have you used tobacco products in the last 12 months: No Type of Tobacco Use: None Does any household member use tobacco: No Alcohol Use: None Drug Use: None Medications Home Medications: No Known Drug Allergies [NKDA] Allergy (Verified 03/06/19 07:52) Labs Result Diagrams: 11/22/19 05:31 11/22/19 05:31 Labs: Laboratory WBC 8.2 X10^3/uL (3.6-10.0) 11/22/19 05:31 RBC 3.80 X10^6/uL (4.7-6.0) L 11/22/19 05:31 Hgb 10.7 g/dL (13.5-18.0) L 11/22/19 05:31 Hct 31.3 % (42.0-54.0) L 11/22/19 05:31 MCV 82.3 fL (80.0-100.0) 11/22/19 05:31 MCH 28.1 pg (27.0-34.0) 11/22/19 05:31 MCHC 34.1 g/dL (33.0-35.0) 11/22/19 05:31 RDW 14.2 % (11.6-16.5) 11/22/19 05:31 Plt Count 290 X10^3/uL (150.0-450.0) 11/22/19 05:31 MPV 7.0 fL (7.4-11.0) L 11/22/19 05:31 Neut % (Auto) 69.5 % (42.0-75.0) 11/22/19 05:31 Lymph % (Auto) 18.9 % (21.0-51.0) L 11/22/19 05:31 Reeves % (Auto) 9.9 % (0.0-13.0) 11/22/19 05:31 Eos % (Auto) 1.2 % (0.9-2.9) 11/22/19 05:31 Baso % (Auto) 0.5 % (0.2-1.0) 11/22/19 05:31 Neut # (Auto) 5.7 x10^3/uL (2.2-4.8) H 11/22/19 05:31 Lymph # (Auto) 1.5 X10^3/uL (1.3-2.9) 11/22/19 05:31 Reeves # (Auto) 0.8 x10^3/uL (0.3-0.8) 11/22/19 05:31 Eos # (Auto) 0.1 x10^3/uL (0.0-0.2) 11/22/19 05:31 Baso # (Auto) 0.0 X10^3/uL (0.0-0.1) 11/22/19 05:31 Absolute Nucleated RBC 0.0 /100WBC 11/22/19 05:31 PT 15.2 SECONDS (11.8-14.3) 11/21/19 21:30 INR Target Range - 11/21/19 21:30 INR 1.23 (0.8-1.3) 11/21/19 21:30 APTT 43.5 SECONDS (22.9-36.5) H 11/21/19 21:30 PTT Comment - 11/21/19 21:30 D-Dimer 611 ng/mL (0-400) H* 11/21/19 21:30 Sodium 134 mmol/L (136-145) L 11/22/19 05:31 Corrected Sodium 136 mmol/L (136-145) 11/22/19 05:31 Potassium 3.2 mmol/L (3.5-5.1) L 11/22/19 05:31 Chloride 97 mmol/L (98-107) L 11/22/19 05:31 Carbon Dioxide 31.2 mmol/L (21-32) 11/22/19 05:31 BUN 24 mg/dL (7-18) H 11/22/19 05:31 Creatinine 1.05 mg/dL (0.70-1.30) 11/22/19 05:31 Est GFR (MDRD) Af Amer > 60 (>60) 11/22/19 05:31 Est GFR (MDRD) Non-Af > 60 (>60) 11/22/19 05:31 Glucose 182 mg/dL (65-99) H 11/22/19 05:31 Calcium 8.8 mg/dL (8.5-10.1) 11/22/19 05:31 Corrected Calcium 9.7 mg/dL (8.5-10.1) 11/22/19 05:31 Magnesium 2.3 mg/dL (1.7-2.9) 11/22/19 05:31 Total Bilirubin 0.30 mg/dL (0.2-1.0) 11/22/19 05:31 AST 15 Units/L (15-37) 11/22/19 05:31 ALT 15 Units/L (12-78) 11/22/19 05:31 Alkaline Phosphatase 31 Units/L (46-116) L 11/22/19 05:31 Creatine Kinase 21 Units/L (39-308) L 11/21/19 21:30 CK-MB (CK-2) < 1.0 ng/mL (0-4.0) 11/21/19 21:30 CK/CKMB % Calc 4.8 % (<4) 11/21/19 21:30 Troponin I < 0.02 ng/mL (0-1.5) 11/21/19 21:30 C-Reactive Protein 75.10 mg/L (0-3.0) H 11/22/19 05:31 Total Protein 6.8 g/dL (6.4-8.2) 11/22/19 05:31 Albumin 2.9 g/dL (3.4-5.0) L 11/22/19 05:31 Globulin 3.9 g/dL (2.5-4.5) 11/22/19 05:31 Albumin/Globulin Ratio 0.7 Ratio (1.1-2.1) L 11/22/19 05:31 RSV Nasal Swab Negative (NEGATIVE) 11/22/19 00:16 Urine Opiates Screen Negative (NEG=<300) 11/21/19 20:20 Urine Methadone Screen Negative (NEG=<300) 11/21/19 20:20 Ur Barbiturates Screen Negative (NEG=<200) 11/21/19 20:20 Ur Phencyclidine Scrn Negative (NEG=<25) 11/21/19 20:20 Ur Amphetamines Screen Negative (NEG=<1000) 11/21/19 20:20 U Benzodiazepines Scrn Negative (NEG=<200) 11/21/19 20:20 Urine Cocaine Screen Negative (NEG=<300) 11/21/19 20:20 U Marijuana (THC) Screen Negative (NEG=<50) 11/21/19 20:20 Influenza Type A (PCR) Negative (NEGATIVE) 11/22/19 00:24 Influenza Type B (PCR) Negative (NEGATIVE) 11/22/19 00:24 S. pyogenes (TEM-PCR) Not detected (NOT DETECT) 11/22/19 00:24 Review of Systems Constitutional: No Symptoms Reported Eyes: No Symptoms Reported ENT: No Symptoms Reported Respiratory: No Symptoms Reported Cardiovascular: No Symptoms Reported Gastrointestinal: No Symptoms Reported Genitourinary: No Symptoms Reported Musculoskeletal: No Symptoms Reported Skin: No Symptoms Reported Neurological: Change in Speech, Confusion and Seizures Physical Exam Vital Signs: Temperature 98.5 F Pulse Rate [Apical] 97 Pulse Rate 82 Respiratory Rate 12 Blood Pressure [Left Arm] 147/73 Blood Pressure [Right Arm] 191/86 Blood Pressure 118/56 O2 Sat by Pulse Oximetry 100 Oriented: Place and Unable to test Respiratory: Diminished Throughout Cardiovascular: Normal Auscultation: Bowel Sounds: Normal Palpation: Normal Tenderness: Normal Skin: Normal Musculoskeletal: Left (motor strength b/l 4/5 ), Arm and Leg (motor strenght b/l 4/5) Psychiatric: Normal Mood Description: Calm and Flat Affect: Normal Speech Pattern: Appropriate and Slurred Assessment/Plan (1) Altered mental status: Qualifiers: Altered mental status type: transient alteration of awareness Qualified Code(s): R40.4 - Transient alteration of awareness Status: Acute (2) Pulmonary infiltrates: Status: Acute (3) Diabetes mellitus: Qualifiers: Diabetes mellitus complication status: with hyperglycemia Diabetes mellitus extermination inspector insulin use: without jail use Diabetes mellitus type: type 2 Qualified Code(s): E11.65 - Type 2 diabetes mellitus with hyperglycemia Status: Acute (4) Hypomagnesemia: Status: Acute (5) CVA (cerebral vascular accident): Qualifiers: CVA mechanism: unspecified Qualified Code(s): I63.9 - Cerebral infarction, unspecified Status: Acute (6) Generalized weakness: Status: Acute (7) Aphasia following cerebrovascular accident (CVA): Status: Acute Review H&P Reviewed: Yes Patient was examined?: Yes
[2019-11-22] MEDS: ASPIRIN 81 MG CHEWTAB PO SCH (10:58)
[2019-11-22] MEDS: TOPROL XL PO SCH (10:58)
[2019-11-22] MEDS: HumuLIN R SC PRN ×3 (11:14→20:45)
[2019-11-22] MEDS: VIBRAMYCIN 100 MG in D5W 250 ML IV 250 ML IV SCH ×2 (11:59→21:33)
[2019-11-22] MEDS: SNACK - Diabetic Appropriate PO SCH (20:43)
[2019-11-22] MEDS: ELIQUIS PO SCH (20:44)
[2019-11-22] MEDS: LIPITOR TAB 40 MG PO SCH (20:44)
[2019-11-23 06:32] LABS: BASOPHILS # (AUTO) 0.1 X10^3/uL (0.0-0.1); BASOPHILS % (AUTO) 1.1 % (0.2-1.0); EOSINOPHILS # (AUTO) 0.2 x10^3/uL (0.0-0.2); EOSINOPHILS % (AUTO) 2.5 % (0.9-2.9); HEMATOCRIT 35.7 % (42.0-54.0); HEMOGLOBIN 12.1 g/dL (13.5-18.0); LYMPHOCYTES # (AUTO) 2.1 X10^3/uL (1.3-2.9); LYMPHOCYTES % (AUTO) 23.1 % (21.0-51.0); MEAN CORPUSCULAR HEMOGLOBIN 28.3 pg (27.0-34.0); MEAN CORPUSCULAR HGB CONC 33.9 g/dL (33.0-35.0); MEAN CORPUSCULAR VOLUME 83.5 fL (80.0-100.0); MEAN PLATELET VOLUME 7.2 fL (7.4-11.0); MONOCYTES # (AUTO) 0.9 x10^3/uL (0.3-0.8); NEUTROPHILS # (AUTO) 5.9 x10^3/uL (2.2-4.8); NEUTROPHILS % (AUTO) 63.3 % (42.0-75.0); PLATELET COUNT 353 X10^3/uL (150.0-450.0); RED BLOOD COUNT 4.28 X10^6/uL (4.7-6.0); RED CELL DISTRIBUTION WIDTH 14.3 % (11.6-16.5); WHITE BLOOD COUNT 9.3 X10^3/uL (3.6-10.0)
[2019-11-23 06:49] LABS: ALANINE AMINOTRANSFERASE 19 Units/L (12-78); ALBUMIN 3.1 g/dL (3.4-5.0); ALKALINE PHOSPHATASE 29 Units/L (46-116); ASPARTATE AMINO TRANSFERASE 22 Units/L (15-37); BLOOD UREA NITROGEN 12 mg/dL (7-18); CALCIUM 8.8 mg/dL (8.5-10.1); CHLORIDE 102 mmol/L (98-107); COR CA(FOR HYPOALB) 9.5 mg/dL (8.5-10.1); COR NA(FOR HYPERGLY) 137 mmol/L (136-145); CREATININE 0.92 mg/dL (0.70-1.30); SODIUM 137 mmol/L (136-145); TOTAL PROTEIN 7.3 g/dL (6.4-8.2); eGFR NON BLACK RACES > 60 (>60)
[2019-11-23] MEDS: NS 1/2 1000 ML IV 1,000 ML IV SCH (06:56)
[2019-11-23] MEDS: ASPIRIN 81 MG CHEWTAB PO SCH (08:26)
[2019-11-23] MEDS: ELIQUIS PO SCH ×2 (08:26→21:18)
[2019-11-23] MEDS: TOPROL XL PO SCH (08:26)
[2019-11-23] MEDS: COLACE CAP 100 MG PO SCH (08:26)
[2019-11-23] MEDS: ROCEPHIN VIAL 1 GRAM 1 G in NS 100 ML IV + SPIKE MINIBAG* 100 ML IV SCH (08:27)
[2019-11-23] MEDS: SYNTHROID 75 mcg TAB PO SCH (08:27)
[2019-11-23] MEDS: VIBRAMYCIN 100 MG in D5W 250 ML IV 250 ML IV SCH ×2 (09:51→21:30)
--- NOTE | 2019-11-23 10:09 | PCM.PROG ---
Progress Note Progress Note for Day of Date of Exam: 11/23/19 Subjective Subjective: Patient seen at bedside, no events overnight. Patient seems to be at his baseline. He answers questions. He reports no nausea or vomiting. He states he did get up with assistance to the bathroom. He is currently on RA, denies SOB or cough. No seizures since being admitted. Continue current treatment with Rocephin and Doxy for pneumonia, continue Vit C. Replace mag as per protocol. COVID-19 result pending. PT/OT. Monitor AM labs. Past Medical Family Social History Past Med/Fam/Surg Hx: No changes since H&P Allergies: Allergies No Known Drug Allergies [NKDA] Allergy (Verified 03/06/19 07:52) Review of Systems ROS: No change since H&P Vital Signs and I&O's Vital Signs: Temperature 98.3 F Pulse Rate [Apical] 97 Pulse Rate 93 Respiratory Rate 18 Blood Pressure [Left Arm] 147/73 Blood Pressure [Right Arm] 191/86 Blood Pressure 184/89 O2 Sat by Pulse Oximetry 99 Intake and Output: Intake & Output 11/20/19 11/21/19 11/22/19 11/23/19 23:59 23:59 23:59 23:59 Intake Total 3694 / 3694 601 / 601 Output Total 3700 / 3700 650 / 650 Balance -6 / -6 -49 / -49 Physical Exam Oriented: Place and Unable to test Respiratory: Diminished Cardiovascular: Tachycardia Auscultation: Bowel Sounds: Normal Tenderness: Normal Skin: Normal Musculoskeletal: Left (motor strength b/l 4/5 ), Arm and Leg (motor strenght b/l 4/5) Psychiatric: Normal Mood Description: Calm Affect: Normal Speech Pattern: Appropriate, Unclear, Delayed and Slurred Laboratory and Diagnostics Result Diagrams: 11/23/19 06:14 11/23/19 06:14 Labs: Laboratory WBC 9.3 X10^3/uL (3.6-10.0) 11/23/19 06:14 RBC 4.28 X10^6/uL (4.7-6.0) L 11/23/19 06:14 Hgb 12.1 g/dL (13.5-18.0) L 11/23/19 06:14 Hct 35.7 % (42.0-54.0) L 11/23/19 06:14 MCV 83.5 fL (80.0-100.0) 11/23/19 06:14 MCH 28.3 pg (27.0-34.0) 11/23/19 06:14 MCHC 33.9 g/dL (33.0-35.0) 11/23/19 06:14 RDW 14.3 % (11.6-16.5) 11/23/19 06:14 Plt Count 353 X10^3/uL (150.0-450.0) 11/23/19 06:14 MPV 7.2 fL (7.4-11.0) L 11/23/19 06:14 Neut % (Auto) 63.3 % (42.0-75.0) 11/23/19 06:14 Lymph % (Auto) 23.1 % (21.0-51.0) 11/23/19 06:14 [place] % (Auto) 10.0 % (0.0-13.0) 11/23/19 06:14 Eos % (Auto) 2.5 % (0.9-2.9) 11/23/19 06:14 Baso % (Auto) 1.1 % (0.2-1.0) H 11/23/19 06:14 Neut # (Auto) 5.9 x10^3/uL (2.2-4.8) H 11/23/19 06:14 Lymph # (Auto) 2.1 X10^3/uL (1.3-2.9) 11/23/19 06:14 [place] # (Auto) 0.9 x10^3/uL (0.3-0.8) H 11/23/19 06:14 Eos # (Auto) 0.2 x10^3/uL (0.0-0.2) 11/23/19 06:14 Baso # (Auto) 0.1 X10^3/uL (0.0-0.1) 11/23/19 06:14 Absolute Nucleated RBC 0.0 /100WBC 11/23/19 06:14 PT 15.2 SECONDS (11.8-14.3) 11/21/19 21:30 INR Target Range - 11/21/19 21:30 INR 1.23 (0.8-1.3) 11/21/19 21:30 APTT 43.5 SECONDS (22.9-36.5) H 11/21/19 21:30 PTT Comment - 11/21/19 21:30 D-Dimer 611 ng/mL (0-400) H* 11/21/19 21:30 Sodium 137 mmol/L (136-145) 11/23/19 06:14 Corrected Sodium 137 mmol/L (136-145) 11/23/19 06:14 Potassium 4.3 mmol/L (3.5-5.1) 11/23/19 06:14 Chloride 102 mmol/L (98-107) 11/23/19 06:14 Carbon Dioxide 29.0 mmol/L (21-32) 11/23/19 06:14 BUN 12 mg/dL (7-18) 11/23/19 06:14 Creatinine 0.92 mg/dL (0.70-1.30) 11/23/19 06:14 Est GFR (MDRD) Af Amer > 60 (>60) 11/23/19 06:14 Est GFR (MDRD) Non-Af > 60 (>60) 11/23/19 06:14 Glucose 111 mg/dL (65-99) H 11/23/19 06:14 Calcium 8.8 mg/dL (8.5-10.1) 11/23/19 06:14 Corrected Calcium 9.5 mg/dL (8.5-10.1) 11/23/19 06:14 Magnesium 1.6 mg/dL (1.7-2.9) L 11/23/19 06:14 Total Bilirubin 0.30 mg/dL (0.2-1.0) 11/23/19 06:14 AST 22 Units/L (15-37) 11/23/19 06:14 ALT 19 Units/L (12-78) 11/23/19 06:14 Alkaline Phosphatase 29 Units/L (46-116) L 11/23/19 06:14 Creatine Kinase 21 Units/L (39-308) L 11/21/19 21:30 CK-MB (CK-2) < 1.0 ng/mL (0-4.0) 11/21/19 21:30 CK/CKMB % Calc 4.8 % (<4) 11/21/19 21:30 Troponin I < 0.02 ng/mL (0-1.5) 11/21/19 21:30 C-Reactive Protein 75.10 mg/L (0-3.0) H 11/22/19 05:31 Total Protein 7.3 g/dL (6.4-8.2) 11/23/19 06:14 Albumin 3.1 g/dL (3.4-5.0) L 11/23/19 06:14 Globulin 4.2 g/dL (2.5-4.5) 11/23/19 06:14 Albumin/Globulin Ratio 0.7 Ratio (1.1-2.1) L 11/23/19 06:14 RSV Nasal Swab Negative (NEGATIVE) 11/22/19 00:16 Urine Opiates Screen Negative (NEG=<300) 11/21/19 20:20 Urine Methadone Screen Negative (NEG=<300) 11/21/19 20:20 Ur Barbiturates Screen Negative (NEG=<200) 11/21/19 20:20 Ur Phencyclidine Scrn Negative (NEG=<25) 11/21/19 20:20 Ur Amphetamines Screen Negative (NEG=<1000) 11/21/19 20:20 U Benzodiazepines Scrn Negative (NEG=<200) 11/21/19 20:20 Urine Cocaine Screen Negative (NEG=<300) 11/21/19 20:20 U Marijuana (THC) Screen Negative (NEG=<50) 11/21/19 20:20 Influenza Type A (PCR) Negative (NEGATIVE) 11/22/19 00:24 Influenza Type B (PCR) Negative (NEGATIVE) 11/22/19 00:24 S. pyogenes (TEM-PCR) Not detected (NOT DETECT) 11/22/19 00:24 Plan (1) Altered mental status: Status: Acute Qualifiers: Altered mental status type: transient alteration of awareness Qualified Code(s): R40.4 - Transient alteration of awareness (2) Pulmonary infiltrates: Status: Acute (3) Diabetes mellitus: Status: Acute Qualifiers: Diabetes mellitus complication status: with hyperglycemia Diabetes mellitus roasterman insulin use: without alf use Diabetes mellitus type: type 2 Qualified Code(s): E11.65 - Type 2 diabetes mellitus with hyperglycemia (4) Hypomagnesemia: Status: Acute (5) CVA (cerebral vascular accident): Status: Acute Qualifiers: CVA mechanism: unspecified Qualified Code(s): I63.9 - Cerebral infarct ion, unspecified (6) Generalized weakness: Status: Acute (7) Aphasia following cerebrovascular accident (CVA): Status: Acute
[2019-11-23] MEDS: HumuLIN R SC PRN ×3 (10:37→21:40)
[2019-11-23] MEDS: NS 100 ML IV 100 ML with ASCORBIC ACID INJ MULTI-DOSE VIAL 1,500 MG IV SCH ×2 (11:07)
[2019-11-23] MEDS: MAGNESIUM SULFATE 1 GRAM/100 mL PREMIX 1 GM/100 ML BAG IV PRN ×2 (14:17→15:22)
[2019-11-23] MEDS: SNACK - Diabetic Appropriate PO SCH (21:00)
[2019-11-23] MEDS: LIPITOR TAB 40 MG PO SCH (21:18)
[2019-11-24] MEDS: NS 1/2 1000 ML IV 1,000 ML IV SCH (03:12)
[2019-11-24 06:07] LABS: BASOPHILS # (AUTO) 0.1 X10^3/uL (0.0-0.1); EOSINOPHILS # (AUTO) 0.3 x10^3/uL (0.0-0.2); EOSINOPHILS % (AUTO) 2.8 % (0.9-2.9); HEMATOCRIT 36.4 % (42.0-54.0); HEMOGLOBIN 12.3 g/dL (13.5-18.0); LYMPHOCYTES # (AUTO) 2.2 X10^3/uL (1.3-2.9); MEAN CORPUSCULAR HEMOGLOBIN 27.9 pg (27.0-34.0); MEAN CORPUSCULAR HGB CONC 33.9 g/dL (33.0-35.0); MEAN CORPUSCULAR VOLUME 82.3 fL (80.0-100.0); MEAN PLATELET VOLUME 7.3 fL (7.4-11.0); MONOCYTES # (AUTO) 0.8 x10^3/uL (0.3-0.8); MONOCYTES % (AUTO) 7.9 % (0.0-13.0); NEUTROPHILS # (AUTO) 7.1 x10^3/uL (2.2-4.8); NEUTROPHILS % (AUTO) 67.3 % (42.0-75.0); PLATELET COUNT 413 X10^3/uL (150.0-450.0); RED BLOOD COUNT 4.42 X10^6/uL (4.7-6.0); RED CELL DISTRIBUTION WIDTH 14.1 % (11.6-16.5); WHITE BLOOD COUNT 10.5 X10^3/uL (3.6-10.0)
[2019-11-24 06:23] LABS: ALANINE AMINOTRANSFERASE 18 Units/L (12-78); ALBUMIN 3.2 g/dL (3.4-5.0); ALKALINE PHOSPHATASE 35 Units/L (46-116); ASPARTATE AMINO TRANSFERASE 16 Units/L (15-37); BLOOD UREA NITROGEN 10 mg/dL (7-18); CARBON DIOXIDE 25.3 mmol/L (21-32); CHLORIDE 101 mmol/L (98-107); COR CA(FOR HYPOALB) 9.6 mg/dL (8.5-10.1); COR NA(FOR HYPERGLY) 138 mmol/L (136-145); CREATININE 0.86 mg/dL (0.70-1.30); MAGNESIUM 1.6 mg/dL (1.7-2.9); SODIUM 136 mmol/L (136-145); TOTAL PROTEIN 7.4 g/dL (6.4-8.2); eGFR NON BLACK RACES > 60 (>60)
[2019-11-24] MEDS ORDERED: NS 1/2 1000 ML IV 1,000 ML IV ONE ×2 (06:28→20:39)
--- NOTE | 2019-11-24 07:33 | RAD ---
HISTORYShortness of breathSTUDYCHEST, 1 [id number] is status post median sternotomy. The heart is within normal limits in size. The fadia are normal. The lung restrepo are clear. Bony thorax is unremarkable.IMPRESSIONNo significant abnormality identifiedElectronically signed by: SOFIA BOWLING (Nov 24, 2019 07:31:47)
[2019-11-24] MEDS: ASPIRIN 81 MG CHEWTAB PO SCH (08:51)
[2019-11-24] MEDS: SYNTHROID 75 mcg TAB PO SCH (08:52)
[2019-11-24] MEDS: TOPROL XL PO SCH (08:53)
[2019-11-24] MEDS: ELIQUIS PO SCH ×2 (08:53→21:30)
[2019-11-24] MEDS: COLACE CAP 100 MG PO SCH (08:53)
[2019-11-24] MEDS: ROCEPHIN VIAL 1 GRAM 1 G in NS 100 ML IV + SPIKE MINIBAG* 100 ML IV SCH (08:54)
[2019-11-24] MEDS: VIBRAMYCIN 100 MG in D5W 250 ML IV 250 ML IV SCH ×2 (10:00→21:00)
--- NOTE | 2019-11-24 10:21 | PCM.PROG ---
Progress Note - Progress Note for Day of Date of Exam: 11/24/19 - Subjective Subjective: WAS ADMITTED FOR AMS, PULMONARY INFILTRATES, DEHYDRATION, TACHYCARDIA, AND LOW MAGNESIUM. HE HAS A PMH OF CVA, CAD, HTN, STENTS, BPH, AND DIABETES. TODAY, HE IS ALERT, LYING IN BED ON MORNING ROUNDS. HE ANSWERS QUESTION APPROPRIATELY THIS MORNING. STAFF REPORTS THAT HE WAS AGITATED YESTERDAY AND ATTEMPTED TO GET OUT OF BED WITHOUT ASSISTANCE SEVERAL TIMES. ON EXAMINATION, HEART IS REGULAR IN RATE AND RHYTHM. BILATERAL LUNGS ARE CLEAR TO AUSCULTATION. ABDOMEN IS ROUND, SOFT, AND NON-TENDER WITH NORMAL BOWEL SOUNDS NOTED IN ALL QUADRANTS. HIS VITALS THIS MORNING ARE: 98.2-95-26-100%-190/95. LABS WERE OBTAINED. ABNROMAL LAB VALUES INCLUDE THE FOLLOWING: WBC 10.5, RBC 4.42, HGB 12.3, HCT 36.4, GLUCOSE 164, MAGNESIUM 1.6, ALK PHOS 35, ALBUMIN 3.2. RSV/INFLUENZA, STREP NEGATIVE. HE WAS SWABBED FOR COVID-19 IN THE ER. BLOOD CULTURES ARE PENDING. A CHEST XRAY WAS OBTAINED TODAY AND REVEALED: NO SIGNIFICANT ABNORMALITY IDENTIFIED. ECHO REVEALED AN EJECTION FRACTION OF 63%. HE IS CURRENTLY RECEIVING ROCEPHIN 1G IV DAILY, DOXY 100MG IV Q12H, THE POTASSIUM AND MAGNESIUM PROTOCOLS, HUMULIN R SLIDING SCALE, AND HOME MEDICATIONS WERE RESUMED. WE WILL CONTINUE WITH CURRENT PLAN OF CARE TODAY. OTHERWISE, WE WILL FOLLOW UP WITH AM LABS AND CONTINUE TO MONITOR. - Past Medical Family Social History Past Med/Fam/Surg Hx: No changes since H&P Allergies: Allergies No Known Drug Allergies [NKDA] Allergy (Verified 03/06/19 07:52) - Review of Systems ROS: No change since H&P - Vital Signs and I&O's Vital Signs: Temperature 98.2 F Pulse Rate [Apical] 97 Pulse Rate 95 Respiratory Rate 26 Blood Pressure [Left Arm] 147/73 Blood Pressure [Right Arm] 191/86 Blood Pressure 190/95 O2 Sat by Pulse Oximetry 100 Intake and Output: Intake & Output 11/21/19 11/22/19 11/23/19 11/24/19 11:59 11:59 11:59 11:59 Intake Total 720 / 720 3575 / 3575 3295 / 3295 Output Total 500 / 500 3850 / 3850 3125 / 3125 Balance 220 / 220 -275 / -275 170 / 170 - Physical Exam Oriented: Person Eyes: Normal Ear: Normal Nose: Normal Throat: Normal Respiratory: Generalized, Diminished Cardiovascular: Normal : Normal Auscultation: Bowel Sounds: Normal Palpation: Normal Tenderness: Normal Skin: Normal Musculoskeletal: Arm, Left (motor strength b/l 4/5), Leg (motor strenght b/l 4/5) Psychiatric: Normal Mood Description: Calm Affect: Normal Speech Pattern: Appropriate, Unclear, Delayed - Laboratory and Diagnostics Result Diagrams: 11/24/19 05:20 11/24/19 05:20 Labs: Laboratory WBC 10.5 X10^3/uL (3.6-10.0) H 11/24/19 05:20 RBC 4.42 X10^6/uL (4.7-6.0) L 11/24/19 05:20 Hgb 12.3 g/dL (13.5-18.0) L 11/24/19 05:20 Hct 36.4 % (42.0-54.0) L 11/24/19 05:20 MCV 82.3 fL (80.0-100.0) 11/24/19 05:20 MCH 27.9 pg (27.0-34.0) 11/24/19 05:20 MCHC 33.9 g/dL (33.0-35.0) 11/24/19 05:20 RDW 14.1 % (11.6-16.5) 11/24/19 05:20 Plt Count 413 X10^3/uL (150.0-450.0) 11/24/19 05:20 MPV 7.3 fL (7.4-11.0) L 11/24/19 05:20 Neut % (Auto) 67.3 % (42.0-75.0) 11/24/19 05:20 Lymph % (Auto) 21.0 % (21.0-51.0) 11/24/19 05:20 [place] % (Auto) 7.9 % (0.0-13.0) 11/24/19 05:20 Eos % (Auto) 2.8 % (0.9-2.9) 11/24/19 05:20 Baso % (Auto) 1.0 % (0.2-1.0) 11/24/19 05:20 Neut # (Auto) 7.1 x10^3/uL (2.2-4.8) H 11/24/19 05:20 Lymph # (Auto) 2.2 X10^3/uL (1.3-2.9) 11/24/19 05:20 [place] # (Auto) 0.8 x10^3/uL (0.3-0.8) 11/24/19 05:20 Eos # (Auto) 0.3 x10^3/uL (0.0-0.2) H 11/24/19 05:20 Baso # (Auto) 0.1 X10^3/uL (0.0-0.1) 11/24/19 05:20 Absolute Nucleated RBC 0.0 /100WBC 11/24/19 05:20 PT 15.2 SECONDS (11.8-14.3) 11/21/19 21:30 INR Target Range - 11/21/19 21:30 INR 1.23 (0.8-1.3) 11/21/19 21:30 APTT 43.5 SECONDS (22.9-36.5) H 11/21/19 21:30 PTT Comment - 11/21/19 21:30 D-Dimer 611 ng/mL (0-400) H* 11/21/19 21:30 Sodium 136 mmol/L (136-145) 11/24/19 05:20 Corrected Sodium 138 mmol/L (136-145) 11/24/19 05:20 Potassium 3.6 mmol/L (3.5-5.1) 11/24/19 05:20 Chloride 101 mmol/L (98-107) 11/24/19 05:20 Carbon Dioxide 25.3 mmol/L (21-32) 11/24/19 05:20 BUN 10 mg/dL (7-18) 11/24/19 05:20 Creatinine 0.86 mg/dL (0.70-1.30) 11/24/19 05:20 Est GFR (MDRD) Af Amer > 60 (>60) 11/24/19 05:20 Est GFR (MDRD) Non-Af > 60 (>60) 11/24/19 05:20 Glucose 164 mg/dL (65-99) H 11/24/19 05:20 Calcium 9.0 mg/dL (8.5-10.1) 11/24/19 05:20 Corrected Calcium 9.6 mg/dL (8.5-10.1) 11/24/19 05:20 Magnesium 1.6 mg/dL (1.7-2.9) L 11/24/19 05:20 Total Bilirubin 0.30 mg/dL (0.2-1.0) 11/24/19 05:20 AST 16 Units/L (15-37) 11/24/19 05:20 ALT 18 Units/L (12-78) 11/24/19 05:20 Alkaline Phosphatase 35 Units/L (46-116) L 11/24/19 05:20 Creatine Kinase 21 Units/L (39-308) L 11/21/19 21:30 CK-MB (CK-2) < 1.0 ng/mL (0-4.0) 11/21/19 21:30 CK/CKMB % Calc 4.8 % (<4) 11/21/19 21:30 Troponin I < 0.02 ng/mL (0-1.5) 11/21/19 21:30 C-Reactive Protein 75.10 mg/L (0-3.0) H 11/22/19 05:31 Total Protein 7.4 g/dL (6.4-8.2) 11/24/19 05:20 Albumin 3.2 g/dL (3.4-5.0) L 11/24/19 05:20 Globulin 4.2 g/dL (2.5-4.5) 11/24/19 05:20 Albumin/Globulin Ratio 0.8 Ratio (1.1-2.1) L 11/24/19 05:20 RSV Nasal Swab Negative (NEGATIVE) 11/22/19 00:16 Urine Opiates Screen Negative (NEG=<300) 11/21/19 20:20 Urine Methadone Screen Negative (NEG=<300) 11/21/19 20:20 Ur Barbiturates Screen Negative (NEG=<200) 11/21/19 20:20 Ur Phencyclidine Scrn Negative (NEG=<25) 11/21/19 20:20 Ur Amphetamines Screen Negative (NEG=<1000) 11/21/19 20:20 U Benzodiazepines Scrn Negative (NEG=<200) 11/21/19 20:20 Urine Cocaine Screen Negative (NEG=<300) 11/21/19 20:20 U Marijuana (THC) Screen Negative (NEG=<50) 11/21/19 20:20 Influenza Type A (PCR) Negative (NEGATIVE) 11/22/19 00:24 Influenza Type B (PCR) Negative (NEGATIVE) 11/22/19 00:24 S. pyogenes (TEM-PCR) Not detected (NOT DETECT) 11/22/19 00:24 - Plan (1) Altered mental status Status: Acute Qualifiers: Altered mental status type: transient alteration of awareness Qualified Code(s): R40.4 - Transient alteration of awareness Plan: CONTINUE TO MONITOR (2) Pulmonary infiltrates Status: Acute Plan: IV ROCEPHIN, IV DOXY, CONTINUE TO MONITOR (3) Dehydration Status: Acute (4) Diabetes mellitus Status: Acute Qualifiers: Diabetes mellitus type: type 2 Diabetes mellitus credit collector insulin use: without credit collector use Diabetes mellitus complication status: with hyperglycemia Qualified Code(s): E11.65 - Type 2 diabetes mellitus with hyperglycemia Plan: HUMULIN R SLIDING SCALE, CONTINUE TO MONITOR (5) Hypomagnesemia Status: Acute Plan: POTASSIUM/MAGNESIUM PROTOCOL, CONTINUE TO MONITOR
[2019-11-24] MEDS: HumuLIN R SC PRN ×2 (11:23→21:55)
[2019-11-24] MEDS: MAGNESIUM SULFATE 1 GRAM/100 mL PREMIX 1 GM/100 ML BAG IV PRN ×2 (14:00→15:30)
[2019-11-24] MEDS: LIPITOR TAB 40 MG PO SCH (21:00)
[2019-11-25] MEDS: NS 1/2 1000 ML IV 1,000 ML IV SCH
[2019-11-25] MEDS: SNACK - Diabetic Appropriate PO SCH (01:38)
[2019-11-25 05:07] LABS: BASOPHILS # (AUTO) 0.1 X10^3/uL (0.0-0.1); BASOPHILS % (AUTO) 1.4 % (0.2-1.0); EOSINOPHILS # (AUTO) 0.3 x10^3/uL (0.0-0.2); EOSINOPHILS % (AUTO) 3.7 % (0.9-2.9); HEMOGLOBIN 11.8 g/dL (13.5-18.0); LYMPHOCYTES # (AUTO) 1.9 X10^3/uL (1.3-2.9); LYMPHOCYTES % (AUTO) 20.4 % (21.0-51.0); MEAN CORPUSCULAR HEMOGLOBIN 27.9 pg (27.0-34.0); MEAN CORPUSCULAR HGB CONC 33.7 g/dL (33.0-35.0); MEAN CORPUSCULAR VOLUME 82.8 fL (80.0-100.0); MEAN PLATELET VOLUME 6.7 fL (7.4-11.0); MONOCYTES # (AUTO) 0.8 x10^3/uL (0.3-0.8); MONOCYTES % (AUTO) 8.9 % (0.0-13.0); NEUTROPHILS % (AUTO) 65.6 % (42.0-75.0); PLATELET COUNT 375 X10^3/uL (150.0-450.0); RED BLOOD COUNT 4.22 X10^6/uL (4.7-6.0); RED CELL DISTRIBUTION WIDTH 14.4 % (11.6-16.5); WHITE BLOOD COUNT 9.2 X10^3/uL (3.6-10.0)
[2019-11-25 05:16] LABS: ALANINE AMINOTRANSFERASE 17 Units/L (12-78); ALBUMIN 2.7 g/dL (3.4-5.0); ALKALINE PHOSPHATASE 32 Units/L (46-116); ASPARTATE AMINO TRANSFERASE 13 Units/L (15-37); BLOOD UREA NITROGEN 10 mg/dL (7-18); CALCIUM 8.6 mg/dL (8.5-10.1); CARBON DIOXIDE 26.8 mmol/L (21-32); CHLORIDE 103 mmol/L (98-107); COR CA(FOR HYPOALB) 9.6 mg/dL (8.5-10.1); COR NA(FOR HYPERGLY) 138 mmol/L (136-145); CREATININE 0.99 mg/dL (0.70-1.30); SODIUM 137 mmol/L (136-145); TOTAL PROTEIN 6.7 g/dL (6.4-8.2); eGFR NON BLACK RACES > 60 (>60)
[2019-11-25] MEDS: COLACE CAP 100 MG PO SCH (09:20)
[2019-11-25] MEDS: TOPROL XL PO SCH (09:20)
[2019-11-25] MEDS: ROCEPHIN VIAL 1 GRAM 1 G in NS 100 ML IV + SPIKE MINIBAG* 100 ML IV SCH (09:20)
[2019-11-25] MEDS: ELIQUIS PO SCH (09:20)
[2019-11-25] MEDS: SYNTHROID 75 mcg TAB PO SCH (09:20)
[2019-11-25] MEDS: ASPIRIN 81 MG CHEWTAB PO SCH (09:20)
[2019-11-25] MEDS: VIBRAMYCIN 100 MG in D5W 250 ML IV 250 ML IV SCH ×2 (10:15→10:20)
[2019-11-25 14:20] VITALS: BP 163/90
== END 2019-11-25 11:00 | disposition home or self-care (01) | DRG 195 ==
LOC: ER 21:05 → ICU 11-22 00:12 → MED/SURG 11-24 15:45
PROVIDERS: ADMIT Internal Medicine; ATTEND Internal Medicine
DX: I10 Essential (primary) hypertension; E83.42 Hypomagnesemia; J18.0 Bronchopneumonia, unspecified organism; R53.1 Weakness; E03.8 Other specified hypothyroidism; R26.89 Other abnormalities of gait and mobility; I69.320 Aphasia following cerebral infarction; Z11.59 Encounter for screening for other viral diseases; R40.4 Transient alteration of awareness; E11.65 Type 2 diabetes mellitus with hyperglycemia; I48.91 Unspecified atrial fibrillation; Z79.899 Other long term (current) drug therapy; E78.2 Mixed hyperlipidemia

== ENCOUNTER 2020-11-26 08:35 | Observation (INO) ==
--- NOTE | 2020-11-26 08:55 | DR.AMS ---
HPI Time Seen Time Seen by Provider: 11/26/20 08:54 HPI Comment HPI Comment: PATIENT WITH A HISTORY OF 2 PREVIOUS CVA, STATES HE WALKED TO BATHROOM, DEVELOPED ALTERED MENTAL STATUS, CONFUSION, TREMORS OF UPPER ARMS, EASED PATIENT TO FLOOR, EMS GAVE PATIENT 1 AMP OF D-50 PRIOR TO ARRIVAL. Complaint Cheif Complaint Doctors Comments: ACUTE CONFUSION, ALTERED MENTAL STATUS Chief Complaint:: CONFUSION ACUTE COVID-19 Coronavirus risk:travel/contact w/high risk person: No Has patient experienced Coronavirus symptoms: No Reviewed Nurses Notes Reviewed: Yes Source History Provided: Family Member and EMS Mode of Arrival Mode of Arrival: EMS Timing Onset of Chief Complaint: 11/26/20 Came On: Suddenly Onset of Symptoms Start Date: 11/26/20 Onset of Symptoms Start Time: 07:30 Duration Duration: Since Onset Duration: Hours Quality Quality: Decreased Alertness Associated Signs and Symptoms Associated Signs and Symptoms: Generalized Weakness PMH PMH Past Medical History: Angina, CVA, Diabetes, Dyslipidemia and Hypothyroidism Past Surgical History: Yes Surgical History: CABG/Valve Surgery, Carotid Endarterectomy and Ortho Surgery Family History Family Medical History: Cancer and [place] Social History Do you use any recreational Drugs:: No ROS Review of Systems Constitutional: See HPI Eyes: No Symptoms Reported ENTM: No Symptoms Reported Respiratoy: No Symptoms Reported Cardiovascular: No Symptoms Reported Gastrointestinal/Abdominal: No Symptoms Reported Genitourinary: No Symptoms Reported Neurological: See HPI Musculoskeletal: No Symptoms Reported Integumentary: No Symptoms Reported Hematologic/Lymphatic: No Symptoms Reported Endocrine: No Symptoms Reported Psychiatric: No Symptoms Reported All Other Systems: Reviewed and Negative PE Vitals Vital Signs: Temp Pulse Resp BP BP BP Pulse Ox 11/26/20 11:45 82 11 L 100 11/26/20 11:30 84 10 L 126/60 93 L 11/26/20 11:15 84 9 L 97 11/26/20 11:00 85 11 L 125/65 96 11/26/20 10:45 86 10 L 96 11/26/20 10:30 85 10 L 127/63 95 11/26/20 10:15 86 11 L 94 L 11/26/20 10:00 89 10 L 95 11/26/20 09:45 90 18 96 11/26/20 09:44 90 9 L 96 11/26/20 08:36 98.0 F 90 20 135/65 95 07/25/20 06:45 131/58 03/13/20 06:30 131/58 06/26/18 18:34 191/86 General Limitations: Altered Mental Status General Appearance: Alert (TO NAME ONLY) Head Head Exam: Normal Inspection and Atraumatic Eyes Eye exam: Normal Appearance, PERRL and EOMI Pupils: Regular, Round: Bilateral and Size: Bilateral (3MM) ENT ENT Exam: Normal Exam and Normal Oropharynx TM/Canal Exam: Bilateral: Normal Throat Exam: Normal Inspection Neck Neck Exam: Normal Inspection and Full ROM Chest Chest Inspection: Normal Inspection and Symmetric Chest Wall Rise Respiratory Respiratory Exam: Normal Lung Sounds Bilat Respiratory Exam: Bilateral: Clear to Auscultation Cardiovascular Cardiovascular Exam: Regular Rate and Normal Rhythm Abdominal Exam Abdominal Exam: Normal Inspection, Normal Bowel Sounds and Soft Extremities Extremities Exam: Normal Inspection Back Back Exam: Normal Inspection Neurological Neurological Exam: Alert and Oriented X3 (ORIENTED X 1) Patient Oriented To: Person Cerebellar Function: Finger to Nose: Left Abnormal and Right Abnormal (UNABLE TO FOLLOW INSTRUCTIONS) and Heel to [place]: Left Abnormal and Right Abnormal (UNABLE TO FOLLOW INSTRUCTIONS) Motor Strength - RUE: 2/5 Motor Strength - LLE: 2/5 Motor Strength - RLE: 2/5 Upper Motor Neuron Exam: Pronator Drift: Normal Sensory Exam Upper Extremity: Light Touch: Left Abnormal and Right Abnormal, Pin Prick: Left Abnormal and Right Abnormal, Temperature: Left Abnormal and Right Abnormal and 2 Point Discrimination: Left Abnormal and Right Abnormal Psychological Psychiatric Exam: Normal Affect and Normal Mood Skin Skin Exam: Warm and Dry MDM Differential Diagnosis Metabolic: Dehydration and Post-ictal Structural: CVA Toxicologic: Medication Toxicity (VALPROIC ACID TOXICITY) COURSE Treatment Treatment: 1000: MENTAL STATUS IMPROVED, NOW ALERT TO PERSON, ORIENTED X 2, NIH STROKE SCALE 2, MAGNESIUM SULFATE 1GM IVPB FOR MAGNESIUM 1.0 Consultation Call Returned: 11:25 Consultation Comments: DISCUSSED WITH DR CHAPPELL AT 1125 FOR OBSERVATION ROR Labs Reviewed Laboratory Results Reviewed?: Yes Result Diagrams: 11/26/20 09:00 11/26/20 09:00 Laboratory: WBC 15.0 X10^3/uL (3.6-10.0) H 11/26/20 09:00 RBC 3.86 X10^6/uL (4.7-6.0) L 11/26/20 09:00 Hgb 11.1 g/dL (13.5-18.0) L 11/26/20 09:00 Hct 34.1 % (42.0-54.0) L 11/26/20 09:00 MCV 88.3 fL (80.0-100.0) 11/26/20 09:00 MCH 28.7 pg (27.0-34.0) 11/26/20 09:00 MCHC 32.5 g/dL (33.0-35.0) L 11/26/20 09:00 RDW 14.4 % (11.6-16.5) 11/26/20 09:00 Plt Count 224 X10^3/uL (150.0-450.0) 11/26/20 09:00 Plt Count Comment Adequate (ADEQUATE) 11/26/20 09:00 MPV 7.8 fL (7.4-11.0) 11/26/20 09:00 Neut % (Auto) 43.1 % (42.0-75.0) 11/26/20 09:00 Lymph % (Auto) 17.1 % (21.0-51.0) L 11/26/20 09:00 [place] % (Auto) 5.5 % (0.0-13.0) 11/26/20 09:00 Eos % (Auto) 33.5 % (0.9-2.9) H 11/26/20 09:00 Baso % (Auto) 0.8 % (0.2-1.0) 11/26/20 09:00 Neut # (Auto) 6.5 x10^3/uL (2.2-4.8) H 11/26/20 09:00 Lymph # (Auto) 2.6 X10^3/uL (1.3-2.9) 11/26/20 09:00 [place] # (Auto) 0.8 x10^3/uL (0.3-0.8) 11/26/20 09:00 Eos # (Auto) 5.0 x10^3/uL (0.0-0.2) H 11/26/20 09:00 Baso # (Auto) 0.1 X10^3/uL (0.0-0.1) 11/26/20 09:00 Absolute Nucleated RBC 0.1 /100WBC 11/26/20 09:00 Total Counted 100 11/26/20 09:00 Neutrophils % (Manual) 41 % (39-76) 11/26/20 09:00 Lymphocytes % (Manual) 21 % (13-43) 11/26/20 09:00 Monocytes % (Manual) 4 % (4-9) 11/26/20 09:00 Eosinophils % (Manual) 34 % (0-6) H 11/26/20 09:00 Plt Morphology Comment Normal (NORMAL) 11/26/20 09:00 RBC Morphology Normal (NORMAL) 11/26/20 09:00 PT 19.0 SECONDS (11.8-14.3) 11/26/20 09:00 INR Target Range - 11/26/20 09:00 INR 1.68 (0.8-1.3) H 11/26/20 09:00 Sodium 140 mmol/L (136-145) 11/26/20 09:00 Corrected Sodium 143 mmol/L (136-145) 11/26/20 09:00 Potassium 3.2 mmol/L (3.5-5.1) L 11/26/20 09:00 Chloride 102 mmol/L (98-107) 11/26/20 09:00 Carbon Dioxide 27.2 mmol/L (21-32) 11/26/20 09:00 BUN 22 mg/dL (7-18) H 11/26/20 09:00 Creatinine 1.36 mg/dL (0.70-1.30) H 11/26/20 09:00 Est GFR (MDRD) Af Amer > 60 (>60) 11/26/20 09:00 Est GFR (MDRD) Non-Af 54 (>60) L 11/26/20 09:00 Glucose 236 mg/dL (65-99) H 11/26/20 09:00 POC Glucose (mg/dL) 171 mg/dL (65-99) H 11/26/20 09:06 Calcium 8.8 mg/dL (8.5-10.1) 11/26/20 09:00 Corrected Calcium 9.8 mg/dL (8.5-10.1) 11/26/20 09:00 Magnesium 1.0 mg/dL (1.7-2.9) L 11/26/20 09:00 Total Bilirubin 0.20 mg/dL (0.2-1.0) 11/26/20 09:00 AST 14 Units/L (15-37) L 11/26/20 09:00 ALT 15 Units/L (12-78) 11/26/20 09:00 Alkaline Phosphatase 40 Units/L (46-116) L 11/26/20 09:00 Troponin I < 0.02 ng/mL (0-1.5) 11/26/20 09:00 Total Protein 6.0 g/dL (6.4-8.2) L 11/26/20 09:00 Albumin 2.7 g/dL (3.4-5.0) L 11/26/20 09:00 Globulin 3.3 g/dL (2.5-4.5) 11/26/20 09:00 Albumin/Globulin Ratio 0.8 Ratio (1.1-2.1) L 11/26/20 09:00 Specimen Type Catherized urine 11/26/20 09:42 Urine Color Yellow (YELLOW) 11/26/20 09:42 Urine Appearance Clear (CLEAR) 11/26/20 09:42 Urine pH 5.0 (5.0 - 8.0) 11/26/20 09:42 Ur Specific [place] 1.015 (1.000-1.030) 11/26/20 09:42 Urine Protein Negative (NEGATIVE) 11/26/20 09:42 Urine Glucose (UA) 4+ (NEGATIVE) 11/26/20 09:42 Urine Ketones Negative (NEGATIVE) 11/26/20 09:42 Urine Occult Blood 2+ (NEGATIVE) 11/26/20 09:42 Urine Nitrite Negative (NEGATIVE) 11/26/20 09:42 Urine Bilirubin Negative (NEGATIVE) 11/26/20 09:42 Urine Urobilinogen Normal (NORMAL) 11/26/20 09:42 Ur Leukocyte Esterase Negative (NEGATIVE) 11/26/20 09:42 Urine RBC 3-5 /HPF (0-3) A 11/26/20 09:42 Urine WBC None seen /HPF (0-5) 11/26/20 09:42 Ur Squamous Epith Cells Negative /HPF (NEGATIVE) 11/26/20 09:42 Ur Transition Epith Cell Few /HPF (NEGATIVE) 11/26/20 09:42 Urine Bacteria 1+ /HPF (NEGATIVE) 11/26/20 09:42 Ur Culture Indicated? No/not indicated 11/26/20 09:42 Valproic Acid 15.6 ug/mL (50-100) L 11/26/20 09:00 XRAY X-ray Results: [place] CHEST XRAY NEGATIVE, HEAD CT SCAN EKG Rate: 86 [place]: Normal Rhythm: NSR (PROLONGED QT) Opioid Opioid Risk Tool Age (Tejinder box if 16-45): No History of Preadolescent Sexual Abuse: No Total: 0 Total Score Risk Category: Low Risk Copyright: Rony MCCOY predicting aberrant behaviors Diagnosis Discharge Problem: Seizure, Hypomagnesemia
[2020-11-26 09:01] VITALS: BMI 24.3
--- NOTE | 2020-11-26 09:10 | CT ---
HISTORYRight-sided weakness, history of CVASTUDYCT head without contrastTechnique: Axial noncontrast images with coronal and sagittal reformats. Dose reduction procedures were used with mA/kv adjusted for body size.[id number] ventricles, cortical sulci, and other CSF spaces are enlarged consistent with generalized atrophy likely age related. There is slight decreased attenuation in the periventricular white matter suggestive of small vessel vascular disease. There is an old lacunar infarct in the anterior limb of the right internal capsule. Old infarcts are identified in the superior left frontal and posterior right parietal lobes. Old infarct right occipital lobe and left temporal occipital region also noted. There are no areas of abnormal attenuation to suggest recent or remote CVA, hemorrhage, mass lesion, or extra-axial fluid collection. If acute CVA or extension of 1 of the patient's old CVAs is a strong clinical consideration MRI with diffusion imaging is recommended for further evaluation.IMPRESSIONNo definite acute intracranial abnormalityGeneralized atrophy likely age relatedSmall-vessel diseaseMultiple old infarcts as described above stable in appearance when compared with the prior examinationElectronically signed by: SOFIA BOWLING (Nov 26, 2020 09:08:52)
--- NOTE | 2020-11-26 09:15 | RAD ---
HISTORYUnresponsiveSTUDYChest AP portableCOMPARISONNoneFINDINGSPatient is status post median sternotomy. The heart is within normal limits in size. The fadia are normal. The lung restrepo are clear. No pleural effusions are identified. Bony thorax is unremarkable.IMPRESSIONNo significant abnormality identifiedElectronically signed by: SOFIA BOWLING (Nov 26, 2020 09:14:12)
[2020-11-26 09:16] LABS: BASOPHILS # (AUTO) 0.1 X10^3/uL (0.0-0.1); BASOPHILS % (AUTO) 0.8 % (0.2-1.0); EOSINOPHILS % (AUTO) 33.5 % (0.9-2.9); HEMATOCRIT 34.1 % (42.0-54.0); HEMOGLOBIN 11.1 g/dL (13.5-18.0); LYMPHOCYTES # (AUTO) 2.6 X10^3/uL (1.3-2.9); LYMPHOCYTES % (AUTO) 17.1 % (21.0-51.0); MEAN CORPUSCULAR HEMOGLOBIN 28.7 pg (27.0-34.0); MEAN CORPUSCULAR HGB CONC 32.5 g/dL (33.0-35.0); MEAN CORPUSCULAR VOLUME 88.3 fL (80.0-100.0); MEAN PLATELET VOLUME 7.8 fL (7.4-11.0); MONOCYTES # (AUTO) 0.8 x10^3/uL (0.3-0.8); MONOCYTES % (AUTO) 5.5 % (0.0-13.0); NEUTROPHILS # (AUTO) 6.5 x10^3/uL (2.2-4.8); NEUTROPHILS % (AUTO) 43.1 % (42.0-75.0); PLATELET COUNT 224 X10^3/uL (150.0-450.0); RED BLOOD COUNT 3.86 X10^6/uL (4.7-6.0); RED CELL DISTRIBUTION WIDTH 14.4 % (11.6-16.5)
[2020-11-26 09:29] LABS: ALANINE AMINOTRANSFERASE 15 Units/L (12-78); ALBUMIN 2.7 g/dL (3.4-5.0); ALKALINE PHOSPHATASE 40 Units/L (46-116); ASPARTATE AMINO TRANSFERASE 14 Units/L (15-37); BLOOD UREA NITROGEN 22 mg/dL (7-18); CALCIUM 8.8 mg/dL (8.5-10.1); CARBON DIOXIDE 27.2 mmol/L (21-32); CHLORIDE 102 mmol/L (98-107); COR CA(FOR HYPOALB) 9.8 mg/dL (8.5-10.1); COR NA(FOR HYPERGLY) 143 mmol/L (136-145); CREATININE 1.36 mg/dL (0.70-1.30); SODIUM 140 mmol/L (136-145); TROPONIN I < 0.02 ng/mL (0-1.5); eGFR NON BLACK RACES 54 (>60)
[2020-11-26 09:45] LABS: PLATELET MORPHOLOGY COMMENT NORMAL (NORMAL)
[2020-11-26 09:53] LABS: APPEARANCE,URINE CLEAR (CLEAR); BILIRUBIN,URINE NEGATIVE (NEGATIVE); BLOOD/HEMOGLOBIN,URINE 2+ (NEGATIVE); COLOR,URINE YELLOW (YELLOW); GLUCOSE, URINE 4+ (NEGATIVE); KETONES,URINE NEGATIVE (NEGATIVE); LEUKOCYTE ESTERASE ,URINE NEGATIVE (NEGATIVE); NITRITES,URINE NEGATIVE (NEGATIVE); PROTEIN,URINE NEGATIVE (NEGATIVE); UROBILINOGEN,URINE NORMAL (NORMAL)
[2020-11-26] MEDS ORDERED: NS 1000 ML 1,000 ML IV STA (09:57)
[2020-11-26 10:10] LABS: BACTERIA,URINE 1+ /HPF (NEGATIVE); SQUAMOUS EPITHELIAL CELL,UR NEGATIVE /HPF (NEGATIVE); TRANSITIONAL EPI CELLS,URINE FEW /HPF (NEGATIVE)
[2020-11-26] MEDS ORDERED: NS 1000 ML 1,000 ML ONE (11:03)
[2020-11-26] MEDS ORDERED: DEPAKOTE D.R. TAB PO ONE ×2 (11:13→11:28)
[2020-11-26] MEDS ORDERED: MAGNESIUM SULFATE 1 GRAM/100 mL PREMIX 2 G/200 ML BAG IV ONE (11:29)
[2020-11-26] MEDS: MAGNESIUM SULFATE 1 GRAM/100 mL PREMIX 2 G/200 ML BAG IV SCH ×2 (11:33→13:05)
[2020-11-26] MEDS ORDERED: KLOR-CON PO PRN (12:42)
[2020-11-26] MEDS ORDERED: MICRO K EXTEN CAP 10 MEQ PO PRN (12:42)
[2020-11-26] MEDS ORDERED: POTASSIUM CHL 40 MEQ/NS 0.45% 500 ML IV PRN (12:42)
[2020-11-26] MEDS ORDERED: POTASSIUM CHLORIDE LIQ 20 MEQ UDC PO PRN (12:42)
[2020-11-26] MEDS ORDERED: K-RIDER 10 MEQ/NS 100 ML 10 MEQ/100 ML BAG IV PRN (12:42)
[2020-11-26] MEDS ORDERED: POTASSIUM CHL 60 MEQ/NS 0.45% 500 ML IV PRN (12:42)
[2020-11-26] MEDS: NS 1000 ML 1,000 ML IV SCH (13:38)
[2020-11-26] MEDS: MAGNESIUM SULFATE 1 GRAM/100 mL PREMIX 1 GM/100 ML BAG IV PRN ×4 (14:38→20:43)
[2020-11-26] MEDS: K-DUR TAB 20 MEQ PO PRN (14:54)
[2020-11-26] MEDS ORDERED: GLUCOPHAGE ONE (20:21)
[2020-11-26] MEDS: LIPITOR TAB 40 MG PO SCH (20:40)
[2020-11-26] MEDS: GLUCOPHAGE PO SCH (20:41)
[2020-11-26] MEDS: LOPRESSOR TAB 25 MG PO SCH (20:41)
[2020-11-26] MEDS: ELIQUIS PO SCH (20:41)
[2020-11-26] MEDS: MAG-OX TAB PO SCH (20:42)
[2020-11-27] MEDS: NS 1000 ML 1,000 ML IV SCH ×2 (07:02→09:04)
[2020-11-27] MEDS ORDERED: GLUCOPHAGE ONE ×2 (08:55→19:35)
[2020-11-27] MEDS: ZOLOFT PO SCH (09:06)
[2020-11-27] MEDS: ELIQUIS PO SCH ×2 (09:06→20:35)
[2020-11-27] MEDS: ASPIRIN EC 81 MG PO SCH (09:07)
[2020-11-27] MEDS: MAXZIDE 37.5/25 MG PO SCH (09:07)
[2020-11-27] MEDS: GLUCOTROL XL 24-HR PO SCH (09:07)
[2020-11-27] MEDS: K-DUR TAB 20 MEQ PO PRN (09:08)
[2020-11-27] MEDS: MAG-OX TAB PO SCH ×2 (09:08→20:35)
[2020-11-27] MEDS: K-DUR TAB 20 MEQ PO SCH (09:08)
[2020-11-27] MEDS: PROTONIX TAB 40 MG PO SCH (09:08)
[2020-11-27] MEDS: GLUCOPHAGE PO SCH ×2 (09:08→20:34)
[2020-11-27] MEDS: SYNTHROID 75 mcg TAB PO SCH (09:09)
[2020-11-27] MEDS: LOPRESSOR TAB 25 MG PO SCH ×2 (09:09→20:35)
[2020-11-27] MEDS ORDERED: DIVALPROEX 250 MG PO SCH (09:30)
[2020-11-27 09:37] LABS: BASOPHILS # (AUTO) 0.1 X10^3/uL (0.0-0.1); BASOPHILS % (AUTO) 0.6 % (0.2-1.0); EOSINOPHILS # (AUTO) 3.8 x10^3/uL (0.0-0.2); EOSINOPHILS % (AUTO) 24.9 % (0.9-2.9); HEMATOCRIT 32.1 % (42.0-54.0); HEMOGLOBIN 10.5 g/dL (13.5-18.0); LYMPHOCYTES # (AUTO) 2.2 X10^3/uL (1.3-2.9); LYMPHOCYTES % (AUTO) 14.4 % (21.0-51.0); MEAN CORPUSCULAR HEMOGLOBIN 28.8 pg (27.0-34.0); MEAN CORPUSCULAR HGB CONC 32.8 g/dL (33.0-35.0); MEAN CORPUSCULAR VOLUME 87.7 fL (80.0-100.0); MEAN PLATELET VOLUME 8.6 fL (7.4-11.0); MONOCYTES % (AUTO) 6.8 % (0.0-13.0); NEUTROPHILS # (AUTO) 8.1 x10^3/uL (2.2-4.8); NEUTROPHILS % (AUTO) 53.3 % (42.0-75.0); PLATELET COUNT 226 X10^3/uL (150.0-450.0); RED BLOOD COUNT 3.66 X10^6/uL (4.7-6.0); RED CELL DISTRIBUTION WIDTH 14.6 % (11.6-16.5); WHITE BLOOD COUNT 15.1 X10^3/uL (3.6-10.0)
[2020-11-27 09:44] LABS: ALANINE AMINOTRANSFERASE 11 Units/L (12-78); ALBUMIN 2.3 g/dL (3.4-5.0); ALKALINE PHOSPHATASE 42 Units/L (46-116); ASPARTATE AMINO TRANSFERASE 16 Units/L (15-37); BLOOD UREA NITROGEN 12 mg/dL (7-18); CALCIUM 7.8 mg/dL (8.5-10.1); CARBON DIOXIDE 27.1 mmol/L (21-32); CHLORIDE 106 mmol/L (98-107); COR CA(FOR HYPOALB) 9.2 mg/dL (8.5-10.1); COR NA(FOR HYPERGLY) 142 mmol/L (136-145); CREATININE 1.04 mg/dL (0.70-1.30); SODIUM 141 mmol/L (136-145); TOTAL PROTEIN 5.3 g/dL (6.4-8.2); eGFR NON BLACK RACES > 60 (>60)
[2020-11-27 10:01] LABS: PLATELET MORPHOLOGY COMMENT NORMAL (NORMAL)
--- NOTE | 2020-11-27 10:26 | DR.H&P ---
H&P History & Physical for Day of: H&P Date: 11/27/20 Chief Complaint Chief Complaint: seizure, weakness, AMS Allergies Allergies Allergy/AdvReac Type Severity Reaction Status Date / Time No Known Drug Allergies Allergy Verified 03/13/20 05:23 [NKDA] History of Present Illness History of Present Illness: Mr. Weinberg is a 74y/o male with a PMH of seizures, C ABG, Type 2 DM, CVA, HTN and HLD presented after having a seizure. states she noticed the patient standing against the bathroom wall and shaking. She was able to grab him and put him on the floor. She seizures lasted 3-4 mins. . Patient was diagnosed with seizures 6 months ago, last seizure 3 months ago. He takes Valproic acid 250 mg daily. also reports patient has been having diarrhea for the past month. he had outpatient stool studies done 3 days ago. He has been taking Lomotil for diarrhea and that helps a little bit. He has lost 7 lbs in 4 weeks. Patient has been eating well. He is able to ambulate without assistance. ER work up: Labs Hgb 11.1 Mg 1.0 K: 3.2 12/.04 Valproic acid level 15 Trop (-) UA: negative CT brain: prior stroke, no acute process Stool studies 11/23/20: + Fobt + WBC (-) Giardia Patient received a dose of OV Valproic acid and was started on magnesium and potassium replacement. Patient mag and K are normal now. No seizure activity overnight. Plan: will increase valproic acid to 250 mg BID. Replace electrolytes as needed. Will start Cipro/Flagyl for diarrhea and + WBC in the stool. Resume home medications. Continue gentle hydration. DC weber. Monitor for seizure activity. Monitor AM labs. PT as tolerated. Past Medical History Past Medical History: Coronary Artery Disease, CVA, Diabetes, Dyslipidemia, Hypertension, Hypothyroidism and Seizures Additional Medical History: aphasia Past Surgical History Surgical History: Angioplasty/Stents Family History Family Medical History: Diabetes Mellitus and Hypertension Social History Does patient currently use any type of tobacco product: No Have you used tobacco products in the last 12 months: No Type of Tobacco Use: None Does any household member use tobacco: No Alcohol Use: None Drug Use: None Prescription drug monitoring program results: PDMP reviewed and no concerns identified Medications Home Medications: No Known Drug Allergies [NKDA] Allergy (Verified 03/13/20 05:23) CONTINUE taking the following medications diphenoxylate-atropine 1 tab PO BID 11/26/20 [History] divalproex 250 mg PO DAILY 11/26/20 [History] divalproex 250 mg PO DAILY 11/26/20 [History] Labs Result Diagrams: 11/27/20 05:25 11/27/20 05:25 Labs: Laboratory WBC 15.1 X10^3/uL (3.6-10.0) H 11/27/20 05:25 RBC 3.66 X10^6/uL (4.7-6.0) L 11/27/20 05:25 Hgb 10.5 g/dL (13.5-18.0) L 11/27/20 05:25 Hct 32.1 % (42.0-54.0) L 11/27/20 05:25 MCV 87.7 fL (80.0-100.0) 11/27/20 05:25 MCH 28.8 pg (27.0-34.0) 11/27/20 05:25 MCHC 32.8 g/dL (33.0-35.0) L 11/27/20 05:25 RDW 14.6 % (11.6-16.5) 11/27/20 05:25 Plt Count 226 X10^3/uL (150.0-450.0) 11/27/20 05:25 Plt Count Comment Adequate (ADEQUATE) 11/27/20 05:25 MPV 8.6 fL (7.4-11.0) 11/27/20 05:25 Neut % (Auto) 53.3 % (42.0-75.0) 11/27/20 05:25 Lymph % (Auto) 14.4 % (21.0-51.0) L 11/27/20 05:25 [place] % (Auto) 6.8 % (0.0-13.0) 11/27/20 05:25 Eos % (Auto) 24.9 % (0.9-2.9) H 11/27/20 05:25 Baso % (Auto) 0.6 % (0.2-1.0) 11/27/20 05:25 Neut # (Auto) 8.1 x10^3/uL (2.2-4.8) H 11/27/20 05:25 Lymph # (Auto) 2.2 X10^3/uL (1.3-2.9) 11/27/20 05:25 [place] # (Auto) 1.0 x10^3/uL (0.3-0.8) H 11/27/20 05:25 Eos # (Auto) 3.8 x10^3/uL (0.0-0.2) H 11/27/20 05:25 Baso # (Auto) 0.1 X10^3/uL (0.0-0.1) 11/27/20 05:25 Absolute Nucleated RBC 0.1 /100WBC 11/27/20 05:25 Total Counted 100 11/27/20 05:25 Neutrophils % (Manual) 54 % (39-76) 11/27/20 05:25 Lymphocytes % (Manual) 18 % (13-43) 11/27/20 05:25 Monocytes % (Manual) 4 % (4-9) 11/27/20 05:25 Eosinophils % (Manual) 24 % (0-6) H 11/27/20 05:25 Plt Morphology Comment Normal (NORMAL) 11/27/20 05:25 RBC Morphology Normal (NORMAL) 11/27/20 05:25 PT 19.0 SECONDS (11.8-14.3) 11/26/20 09:00 INR Target Range - 11/26/20 09:00 INR 1.68 (0.8-1.3) H 11/26/20 09:00 Sodium 141 mmol/L (136-145) 11/27/20 05:25 Corrected Sodium 142 mmol/L (136-145) 11/27/20 05:25 Potassium 4.0 mmol/L (3.5-5.1) 11/27/20 05:25 Chloride 106 mmol/L (98-107) 11/27/20 05:25 Carbon Dioxide 27.1 mmol/L (21-32) 11/27/20 05:25 BUN 12 mg/dL (7-18) 11/27/20 05:25 Creatinine 1.04 mg/dL (0.70-1.30) 11/27/20 05:25 Est GFR (MDRD) Af Amer > 60 (>60) 11/27/20 05:25 Est GFR (MDRD) Non-Af > 60 (>60) 11/27/20 05:25 Glucose 126 mg/dL (65-99) H 11/27/20 05:25 POC Glucose (mg/dL) 133 mg/dL (65-99) H 11/27/20 07:05 Calcium 7.8 mg/dL (8.5-10.1) L 11/27/20 05:25 Corrected Calcium 9.2 mg/dL (8.5-10.1) 11/27/20 05:25 Magnesium 1.9 mg/dL (1.7-2.9) 11/27/20 05:25 Total Bilirubin 0.10 mg/dL (0.2-1.0) L 11/27/20 05:25 AST 16 Units/L (15-37) 11/27/20 05:25 ALT 11 Units/L (12-78) L 11/27/20 05:25 Alkaline Phosphatase 42 Units/L (46-116) L 11/27/20 05:25 Troponin I < 0.02 ng/mL (0-1.5) 11/26/20 09:00 Total Protein 5.3 g/dL (6.4-8.2) L 11/27/20 05:25 Albumin 2.3 g/dL (3.4-5.0) L 11/27/20 05:25 Globulin 3.0 g/dL (2.5-4.5) 11/27/20 05:25 Albumin/Globulin Ratio 0.8 Ratio (1.1-2.1) L 11/27/20 05:25 Specimen Type Catherized urine 11/26/20 09:42 Urine Color Yellow (YELLOW) 11/26/20 09:42 Urine Appearance Clear (CLEAR) 11/26/20 09:42 Urine pH 5.0 (5.0 - 8.0) 11/26/20 09:42 Ur Specific [place] 1.015 (1.000-1.030) 11/26/20 09:42 Urine Protein Negative (NEGATIVE) 11/26/20 09:42 Urine Glucose (UA) 4+ (NEGATIVE) 11/26/20 09:42 Urine Ketones Negative (NEGATIVE) 11/26/20 09:42 Urine Occult Blood 2+ (NEGATIVE) 11/26/20 09:42 Urine Nitrite Negative (NEGATIVE) 11/26/20 09:42 Urine Bilirubin Negative (NEGATIVE) 11/26/20 09:42 Urine Urobilinogen Normal (NORMAL) 11/26/20 09:42 Ur Leukocyte Esterase Negative (NEGATIVE) 11/26/20 09:42 Urine RBC 3-5 /HPF (0-3) A 11/26/20 09:42 Urine WBC None seen /HPF (0-5) 11/26/20 09:42 Ur Squamous Epith Cells Negative /HPF (NEGATIVE) 11/26/20 09:42 Ur Transition Epith Cell Few /HPF (NEGATIVE) 11/26/20 09:42 Urine Bacteria 1+ /HPF (NEGATIVE) 11/26/20 09:42 Ur Culture Indicated? No/not indicated 11/26/20 09:42 Valproic Acid 15.6 ug/mL (50-100) L 11/26/20 09:00 Review of Systems Eyes: No Symptoms Reported ENT: No Symptoms Reported Respiratory: No Symptoms Reported Cardiovascular: No Symptoms Reported Gastrointestinal: Diarrhea Genitourinary: No Symptoms Reported Musculoskeletal: No Symptoms Reported Skin: No Symptoms Reported Neurological: Weakness and Seizures Physical Exam Vital Signs: Temperature 97.9 F Pulse Rate [Right Brachial] 78 Pulse Rate 83 Respiratory Rate 18 Blood Pressure [Left Arm] 131/58 Blood Pressure [Right Arm] 130/60 Blood Pressure 115/61 O2 Sat by Pulse Oximetry 95 Oriented: Normal Eyes: Normal Ear: Normal Nose: Normal Throat: Normal Respiratory: Clear Throughout Cardiovascular: Normal Auscultation: Bowel Sounds: Normal Palpation: Normal Tenderness: Normal Skin: Normal Psychiatric: Normal Mood Description: Calm Affect: Normal Speech Pattern: Appropriate and Delayed (from prev CVA ) Assessment/Plan (1) Seizure: Status: Acute (2) Hypomagnesemia: Status: Acute (3) Dehydration: Status: Acute (4) Colitis: Status: Acute (5) Hypokalemia: Status: Acute (6) CVA (cerebral vascular accident): Qualifiers: CVA mechanism: unspecified Qualified Code(s): I63.9 - Cerebral infarction, unspecified Status: Chronic (7) HTN (hypertension): Qualifiers: Hypertension type: essential hypertension Qualified Code(s): I10 - Essential (primary) hypertension Status: Acute (8) Hx of CABG: Status: Acute (9) Diabetes mellitus: Qualifiers: Diabetes mellitus complication status: with hyperglycemia Diabetes mellitus [employer] insulin use: without [employer] use Diabetes mellitus type: type 2 Qualified Code(s): E11.65 - Type 2 diabetes mellitus with hyperglycemia Status: Acute Review H&P Reviewed: Yes Patient was examined?: Yes
[2020-11-27] MEDS: DEPAKOTE D.R. TAB PO SCH ×2 (10:36→20:36)
[2020-11-27] MEDS ORDERED: XANAX PO PRN ×2 (10:47→15:49)
[2020-11-27] MEDS: CIPRO IV 400 MG PREMIX* 400 MG/200 ML IV.SOLN. IV SCH ×2 (11:05→20:36)
[2020-11-27] MEDS: FLAGYL TAB 500 MG PO SCH ×3 (11:05→21:30)
[2020-11-27] MEDS: FENOFIBRATE MICRONIZED 134 MG PO SCH (11:36)
[2020-11-27] MEDS: LIPITOR TAB 40 MG PO SCH (20:35)
[2020-11-28 04:16] LABS: BASOPHILS # (AUTO) 0.1 X10^3/uL (0.0-0.1); BASOPHILS % (AUTO) 0.5 % (0.2-1.0); EOSINOPHILS # (AUTO) 3.7 x10^3/uL (0.0-0.2); EOSINOPHILS % (AUTO) 23.6 % (0.9-2.9); HEMATOCRIT 33.6 % (42.0-54.0); HEMOGLOBIN 10.9 g/dL (13.5-18.0); LYMPHOCYTES % (AUTO) 19.4 % (21.0-51.0); MEAN CORPUSCULAR HEMOGLOBIN 28.7 pg (27.0-34.0); MEAN CORPUSCULAR HGB CONC 32.6 g/dL (33.0-35.0); MEAN CORPUSCULAR VOLUME 88.1 fL (80.0-100.0); MEAN PLATELET VOLUME 7.5 fL (7.4-11.0); MONOCYTES % (AUTO) 6.3 % (0.0-13.0); NEUTROPHILS # (AUTO) 7.9 x10^3/uL (2.2-4.8); NEUTROPHILS % (AUTO) 50.2 % (42.0-75.0); PLATELET COUNT 200 X10^3/uL (150.0-450.0); RED BLOOD COUNT 3.81 X10^6/uL (4.7-6.0); RED CELL DISTRIBUTION WIDTH 14.6 % (11.6-16.5); WHITE BLOOD COUNT 15.7 X10^3/uL (3.6-10.0)
[2020-11-28 04:23] LABS: BLOOD UREA NITROGEN 9 mg/dL (7-18); CALCIUM 8.3 mg/dL (8.5-10.1); CARBON DIOXIDE 27.5 mmol/L (21-32); CREATININE 0.97 mg/dL (0.70-1.30); MAGNESIUM 1.4 mg/dL (1.7-2.9); eGFR NON BLACK RACES > 60 (>60)
[2020-11-28 04:43] LABS: CHLORIDE 105 mmol/L (98-107); SODIUM 132 mmol/L (136-145)
[2020-11-28 04:54] LABS: PLATELET MORPHOLOGY COMMENT NORMAL (NORMAL)
[2020-11-28] MEDS: MAGNESIUM SULFATE 1 GRAM/100 mL PREMIX 1 GM/100 ML BAG IV PRN ×4 (05:01→10:35)
[2020-11-28] MEDS: FLAGYL TAB 500 MG PO SCH (05:42)
[2020-11-28] MEDS ORDERED: GLUCOPHAGE ONE (08:05)
[2020-11-28] MEDS: CIPRO IV 400 MG PREMIX* 400 MG/200 ML IV.SOLN. IV SCH (08:21)
[2020-11-28] MEDS: FENOFIBRATE MICRONIZED 134 MG PO SCH (08:23)
[2020-11-28] MEDS: K-DUR TAB 20 MEQ PO SCH (08:24)
[2020-11-28] MEDS: GLUCOPHAGE PO SCH (08:24)
[2020-11-28] MEDS: ASPIRIN EC 81 MG PO SCH (08:24)
[2020-11-28] MEDS: LOPRESSOR TAB 25 MG PO SCH (08:24)
[2020-11-28] MEDS: PROTONIX TAB 40 MG PO SCH (08:24)
[2020-11-28] MEDS: GLUCOTROL XL 24-HR PO SCH (08:24)
[2020-11-28] MEDS: MAXZIDE 37.5/25 MG PO SCH (08:24)
[2020-11-28] MEDS: SYNTHROID 75 mcg TAB PO SCH (08:25)
[2020-11-28] MEDS: ELIQUIS PO SCH (08:25)
[2020-11-28] MEDS: DEPAKOTE D.R. TAB PO SCH (08:25)
[2020-11-28] MEDS: MAG-OX TAB PO SCH (08:25)
[2020-11-28] MEDS: ZOLOFT PO SCH (08:25)
[2020-11-28] MEDS ORDERED: NS 500 ML IV 500 ML IV SCH (09:18)
[2020-11-28 11:48] VITALS: BP 119/63
[2020-11-28 13:16] LABS: BLOOD UREA NITROGEN 9 mg/dL (7-18); CARBON DIOXIDE 23.6 mmol/L (21-32); CHLORIDE 102 mmol/L (98-107); COR NA(FOR HYPERGLY) 138 mmol/L (136-145); CREATININE 1.18 mg/dL (0.70-1.30); SODIUM 135 mmol/L (136-145); eGFR NON BLACK RACES > 60 (>60)
--- NOTE | 2020-11-29 10:02 | W.DIS.FURT ---
Summary of Discharge Discharge Summary of Date Date of Exam: 11/28/20 Admission Date Date of Admission: 11/26/20 Admission Diagnosis Patient Problems (Updated 11/30/20 @ 10:40 by Kristina Sherman) Seizure (Chronic) R56.9 Hypomagnesemia (Acute) E83.42 Hospital Course: Mr. Weinberg is a 74y/o male with a PMH of seizures, CABG, Type 2 DM, CVA, HTN and HLD presented after having a seizure. states she noticed the patient standing against the bathroom wall and shaking. She was able to grab him and put him on the floor. She seizures lasted 3-4 mins. . Patient was diagnosed with seizures 6 months ago, last seizure 3 months ago. He takes Valproic acid 250 mg daily. also reports patient has been having diarrhea for the past month. he had outpatient stool studies done 3 days ago. He has been taking Lomotil for diarrhea and that helps a little bit. He has lost 7 lbs in 4 weeks. Patient has been eating well. He is able to ambulate without assistance. In the ED, he was noted to have Magnesium of 1.0 and Potassium 3.2. Normal renal function. His valproic acid level was low. CT-brain showed prior stroke but no new stroke. His stool studies from 11/23/20 did show + WBC. Patient was started on aggressive replacement with magnesium and potassium. Patient's labs and electrolytes were monitored and replaced as needed. Patient was also started on Cipro and Flagyl for colitis. His diarrhea improved and he was tolerating oral intake. His valproic acid was also increased to BID. Patient did not have any seizures during this admission. Patient's electrolytes were within normal limit. He was stable for discharge home. He was discharged on oral Cipro and Flagyl. He will follow up with PCP as scheduled. Vital Signs: Vital Signs (72 hours) 11/26/20 10:15 11/26/20 10:30 11/26/20 10:45 Temperature Pulse Rate 86 85 86 Pulse Rate [Right Brachial] Respiratory Rate 11 L 10 L 10 L Blood Pressure 127/63 Blood Pressure [Right Arm] O2 Sat by Pulse Oximetry 94 L 95 96 11/26/20 11:00 11/26/20 11:15 11/26/20 11:30 Temperature Pulse Rate 85 84 84 Pulse Rate [Right Brachial] Respiratory Rate 11 L 9 L 10 L Blood Pressure 125/65 126/60 Blood Pressure [Right Arm] O2 Sat by Pulse Oximetry 96 97 93 L 11/26/20 11:45 11/26/20 12:00 11/26/20 12:15 Temperature Pulse Rate 82 82 81 Pulse Rate [Right Brachial] Respiratory Rate 11 L 12 13 Blood Pressure 137/67 Blood Pressure [Right Arm] O2 Sat by Pulse Oximetry 100 98 95 11/26/20 12:27 11/26/20 12:35 11/26/20 16:00 Temperature 97.7 F 98.0 F Pulse Rate 83 Pulse Rate [Right Brachial] 82 89 Respiratory Rate 8 L 18 18 Blood Pressure 115/61 Blood Pressure [Right Arm] 115/61 104/55 O2 Sat by Pulse Oximetry 94 L 94 L 98 11/26/20 19:43 11/27/20 00:00 11/27/20 04:00 Temperature 97.5 F L 97.5 F L 97.7 F Pulse Rate Pulse Rate [Right Brachial] 84 84 79 Respiratory Rate 18 18 18 Blood Pressure Blood Pressure [Right Arm] 110/57 110/57 118/66 O2 Sat by Pulse Oximetry 96 96 97 11/27/20 08:00 11/27/20 12:00 11/27/20 15:55 Temperature 97.9 F 97.4 F L 97.6 F Pulse Rate Pulse Rate [Right Brachial] 78 84 75 Respiratory Rate 18 18 18 Blood Pressure Blood Pressure [Right Arm] 130/60 122/74 130/70 O2 Sat by Pulse Oximetry 95 98 95 11/27/20 20:00 11/27/20 23:59 11/28/20 04:00 Temperature 98.5 F 98.6 F 98.5 F Pulse Rate Pulse Rate [Right Brachial] 82 74 73 Respiratory Rate 16 24 16 Blood Pressure Blood Pressure [Right Arm] 124/66 128/68 136/74 O2 Sat by Pulse Oximetry 95 95 96 11/28/20 07:59 11/28/20 11:48 Temperature 97.7 F 97.9 F Pulse Rate Pulse Rate [Right Brachial] 75 75 Respiratory Rate 20 20 Blood Pressure Blood Pressure [Right Arm] 148/80 119/63 O2 Sat by Pulse Oximetry 96 96 Labs: Laboratory Last Values WBC 15.7 X10^3/uL (3.6-10.0) H 11/28/20 03:56 RBC 3.81 X10^6/uL (4.7-6.0) L 11/28/20 03:56 Hgb 10.9 g/dL (13.5-18.0) L 11/28/20 03:56 Hct 33.6 % (42.0-54.0) L 11/28/20 03:56 MCV 88.1 fL (80.0-100.0) 11/28/20 03:56 MCH 28.7 pg (27.0-34.0) 11/28/20 03:56 MCHC 32.6 g/dL (33.0-35.0) L 11/28/20 03:56 RDW 14.6 % (11.6-16.5) 11/28/20 03:56 Plt Count 200 X10^3/uL (150.0-450.0) 11/28/20 03:56 Plt Count Comment Adequate (ADEQUATE) 11/28/20 03:56 MPV 7.5 fL (7.4-11.0) 11/28/20 03:56 Neut % (Auto) 50.2 % (42.0-75.0) 11/28/20 03:56 Lymph % (Auto) 19.4 % (21.0-51.0) L 11/28/20 03:56 [place] % (Auto) 6.3 % (0.0-13.0) 11/28/20 03:56 Eos % (Auto) 23.6 % (0.9-2.9) H 11/28/20 03:56 Baso % (Auto) 0.5 % (0.2-1.0) 11/28/20 03:56 Neut # (Auto) 7.9 x10^3/uL (2.2-4.8) H 11/28/20 03:56 Lymph # (Auto) 3.0 X10^3/uL (1.3-2.9) H 11/28/20 03:56 [place] # (Auto) 1.0 x10^3/uL (0.3-0.8) H 11/28/20 03:56 Eos # (Auto) 3.7 x10^3/uL (0.0-0.2) H 11/28/20 03:56 Baso # (Auto) 0.1 X10^3/uL (0.0-0.1) 11/28/20 03:56 Absolute Nucleated RBC 0.0 /100WBC 11/28/20 03:56 Total Counted 100 11/28/20 03:56 Neutrophils % (Manual) 61 % (39-76) 11/28/20 03:56 Lymphocytes % (Manual) 26 % (13-43) 11/28/20 03:56 Monocytes % (Manual) 13 % (4-9) H 11/28/20 03:56 Eosinophils % (Manual) 24 % (0-6) H 11/27/20 05:25 Plt Morphology Comment Normal (NORMAL) 11/28/20 03:56 RBC Morphology Normal (NORMAL) 11/28/20 03:56 PT 19.0 SECONDS (11.8-14.3) 11/26/20 09:00 INR Target Range - 11/26/20 09:00 INR 1.68 (0.8-1.3) H 11/26/20 09:00 Sodium 135 mmol/L (136-145) L 11/28/20 12:43 Corrected Sodium 138 mmol/L (136-145) 11/28/20 12:43 Potassium 5.2 mmol/L (3.5-5.1) H 11/28/20 12:43 Chloride 102 mmol/L (98-107) 11/28/20 12:43 Carbon Dioxide 23.6 mmol/L (21-32) 11/28/20 12:43 BUN 9 mg/dL (7-18) 11/28/20 12:43 Creatinine 1.18 mg/dL (0.70-1.30) 11/28/20 12:43 Est GFR (MDRD) Af Amer > 60 (>60) 11/28/20 12:43 Est GFR (MDRD) Non-Af > 60 (>60) 11/28/20 12:43 Glucose 232 mg/dL (65-99) H 11/28/20 12:43 POC Glucose (mg/dL) 187 mg/dL (65-99) H 11/28/20 11:18 Calcium 9.0 mg/dL (8.5-10.1) 11/28/20 12:43 Corrected Calcium 9.2 mg/dL (8.5-10.1) 11/27/20 05:25 Magnesium 2.5 mg/dL (1.7-2.9) 11/28/20 12:43 Total Bilirubin 0.10 mg/dL (0.2-1.0) L 11/27/20 05:25 AST 16 Units/L (15-37) 11/27/20 05:25 ALT 11 Units/L (12-78) L 11/27/20 05:25 Alkaline Phosphatase 42 Units/L (46-116) L 11/27/20 05:25 Troponin I < 0.02 ng/mL (0-1.5) 11/26/20 09:00 Total Protein 5.3 g/dL (6.4-8.2) L 11/27/20 05:25 Albumin 2.3 g/dL (3.4-5.0) L 11/27/20 05:25 Globulin 3.0 g/dL (2.5-4.5) 11/27/20 05:25 Albumin/Globulin Ratio 0.8 Ratio (1.1-2.1) L 11/27/20 05:25 Specimen Type Catherized urine 11/26/20 09:42 Urine Color Yellow (YELLOW) 11/26/20 09:42 Urine Appearance Clear (CLEAR) 11/26/20 09:42 Urine pH 5.0 (5.0 - 8.0) 11/26/20 09:42 Ur Specific [place] 1.015 (1.000-1.030) 11/26/20 09:42 Urine Protein Negative (NEGATIVE) 11/26/20 09:42 Urine Glucose (UA) 4+ (NEGATIVE) 11/26/20 09:42 Urine Ketones Negative (NEGATIVE) 11/26/20 09:42 Urine Occult Blood 2+ (NEGATIVE) 11/26/20 09:42 Urine Nitrite Negative (NEGATIVE) 11/26/20 09:42 Urine Bilirubin Negative (NEGATIVE) 11/26/20 09:42 Urine Urobilinogen Normal (NORMAL) 11/26/20 09:42 Ur Leukocyte Esterase Negative (NEGATIVE) 11/26/20 09:42 Urine RBC 3-5 /HPF (0-3) A 11/26/20 09:42 Urine WBC None seen /HPF (0-5) 11/26/20 09:42 Ur Squamous Epith Cells Negative /HPF (NEGATIVE) 11/26/20 09:42 Ur Transition Epith Cell Few /HPF (NEGATIVE) 11/26/20 09:42 Urine Bacteria 1+ /HPF (NEGATIVE) 11/26/20 09:42 Ur Culture Indicated? No/not indicated 11/26/20 09:42 Valproic Acid 15.6 ug/mL (50-100) L 11/26/20 09:00 Reason For Visit: SEIZURE DISORDER,HYPOMAGNESEMIA,DEHYRDATION Discharge Date Discharge Date: 11/28/20 Discharge Diagnosis All Active Problems (Updated 11/30/20 @ 10:40 by Kristina Sherman) Hx of CABG (Chronic) HTN (hypertension) (Chronic) Colitis (Acute) Hypokalemia (Acute) Seizure (Chronic) Hypomagnesemia (Acute) Altered mental status (Acute) Dehydration (Acute) Diabetes mellitus (Chronic) Sinus tachycardia (Chronic) CVA (cerebral vascular accident) (Chronic) Aphasia following cerebrovascular accident (CVA) (Chronic) Plan of Treatment: Continue with present treatment and follow up plan. Pt is to keep follow up appointment as instructed and take medications as ordered. Discharge Medications Discharge Medications: No Known Drug Allergies [NKDA] Allergy (Verified 03/13/20 05:23) CONTINUE taking the following medications diphenoxylate-atropine 1 tab PO BID 11/26/20 [History] New Prescriptions ciprofloxacin HCl 500 mg PO BID 7 Days #14 tab 11/28/20 [Rx] divalproex 250 mg PO BID 30 Days #60 tab 11/28/20 [Rx] metronidazole 500 mg PO TID 7 Days #21 tab 11/28/20 [Rx] Follow up and Referral Follow Up: 1 Week (PCP) Discharge Disposition Discharge Disposition: Home Discharge Condition: Stable Discharge Plan Discharge Plan Hospital Course: Mr. Weinberg is a 74y/o male with a PMH of seizures, CABG, Type 2 DM, CVA, HTN and HLD presented after having a seizure. states she noticed the patient standing against the bathroom wall and shaking. She was able to grab him and put him on the floor. She seizures lasted 3-4 mins. . Patient was diagnosed with seizures 6 months ago, last seizure 3 months ago. He takes Valproic acid 250 mg daily. also reports patient has been having diarrhea for the past month. he had outpatient stool studies done 3 days ago. He has been taking Lomotil for diarrhea and that helps a little bit. He has lost 7 lbs in 4 weeks. Patient has been eating well. He is able to ambulate without assistance. In the ED, he was noted to have Magnesium of 1.0 and Potassium 3.2. Normal renal function. His valproic acid level was low. CT-brain showed prior stroke but no new stroke. His stool studies from 11/23/20 did show + WBC. Patient was started on aggressive replacement with magnesium and potassium. Patient's labs and electrolytes were monitored and replaced as needed. Patient was also started on Cipro and Flagyl for colitis. His diarrhea improved and he was tolerating oral intake. His valproic acid was also increased to BID. Patient did not have any seizures during this admission. Patient's electrolytes were within normal limit. He was stable for discharge home. He was discharged on oral Cipro and Flagyl. He will follow up with PCP as scheduled. Patient Disposition: 01 HOME, SELF-CARE Condition: Stable Health Concerns: Post Hospitalization: new medications and changes needed to prevent readmission or further decline. Pt educated and given instructions on all concerns. Care Plan Goals: Problem: Infection Goal: Temperature within normal limits. Resolved infection. Instructions: Follow provided instructions. Follow up with primary physician as directed. Contact primary care physician or report to the closest Emergency Room if condition worsens. Problem: Fluid Volume Deficit Goal: Maintain/Improved Adequate hydration. Instructions: Follow provided instructions. Follow up with primary physician as directed. Contact primary care physician or report to the closest Emergency Room if condition worsens. Plan of Treatment: Continue with present treatment and follow up plan. Pt is to keep follow up appointment as instructed and take medications as ordered. Prescription drug monitoring program results: PDMP reviewed and no concerns identified Prescriptions: New divalproex 250 mg Tablet,Delayed Release (Dr/Ec) 250 mg PO BID 30 Days Qty: 60 RF: 0 metronidazole 500 mg Tablet 500 mg PO TID 7 Days Qty: 21 RF: 0 ciprofloxacin HCl 500 mg tablet 500 mg PO BID 7 Days Qty: 14 RF: 0 Continued atorvastatin 40 mg Tablet 40 mg PO HS RF: 0 levothyroxine 75 mcg Tablet 75 mcg PO DAILY RF: 0 metformin 1,000 mg Tablet 1,000 mg PO BID RF: 0 Eliquis 5 mg Tablet 5 mg PO BID RF: 0 cetirizine 10 mg Tablet 10 mg PO QHS RF: 0 glipizide 10 mg tablet extended release 24hr 10 mg PO QAM RF: 0 aspirin [Ecotrin Low Strength] 81 mg Tablet,Delayed Release (Dr/Ec) 81 mg PO DAILY RF: 0 triamterene-hydrochlorothiazid [Dyazide] 37.5-25 mg Capsule 1 cap PO DAILY RF: 0 fenofibrate micronized 134 mg capsule 134 mg PO DAILY RF: 0 alprazolam 0.25 mg tablet 0.25 mg PO DAILY RF: 0 magnesium oxide 400 mg (241.3 mg magnesium) tablet 400 mg PO BID RF: 0 pantoprazole 40 mg tablet,delayed release (DR/EC) 40 mg PO DAILY RF: 0 sertraline 50 mg tablet 50 mg PO DAILY RF: 0 metoprolol tartrate 25 mg tablet 25 mg PO BID RF: 0 cholecalciferol (vitamin D3) [Vitamin D3] 125 mcg (5,000 unit) Tablet 250 mcg PO DAILY RF: 0 meclizine 25 mg tablet 25 mg PO TID RF: 0 diphenoxylate-atropine 2.5-0.025 mg tablet 1 tab PO BID RF: 0 Discontinued divalproex 250 mg tablet extended release 24 hr 250 mg PO DAILY RF: 0 divalproex 250 mg tablet extended release 24 hr 250 mg PO DAILY RF: 0 Orders to Discharge Patient Discharge Orders: Discharge (Routine); Ordered 11/28/20 Ordered By: Kristina Sherman Follow ups/Referrals Follow ups/Referrals: Miguel Garcia [Primary Care Provider] - 3 days Instructions Instructions: Hypomagnesemia, Dehydration, Adult, [id number], Seizure, Adult, Ciprofloxacin tablets, Metronidazole tablets or capsules Stand Alone Forms: Excuse From Work or School, Precautions for COVID19, Patient Portal, Social Distancing
== END 2020-11-28 14:00 | disposition home or self-care (01) ==
LOC: MED/SURG 08:35 → ER 08:35 → MED/SURG 12:33
PROVIDERS: ADMIT Internal Medicine; ATTEND Internal Medicine
DX: R13.11 Dysphagia, oral phase; E87.6 Hypokalemia; G40.802 Other epilepsy, not intractable, without status epilepticus; E86.0 Dehydration; I10 Essential (primary) hypertension; Z86.73 Personal history of transient ischemic attack (TIA), and cerebral infarction without residual deficits; K52.89 Other specified noninfective gastroenteritis and colitis; R94.31 Abnormal electrocardiogram [ECG] [EKG]; E78.2 Mixed hyperlipidemia; E11.65 Type 2 diabetes mellitus with hyperglycemia; E03.8 Other specified hypothyroidism; R26.89 Other abnormalities of gait and mobility; E83.42 Hypomagnesemia; R40.4 Transient alteration of awareness; R79.1 Abnormal coagulation profile